=== PATIENT | male | born 1940 | race Caucasian/White ===

== ENCOUNTER → 2017-12-15 | Outpatient (CLI) | payer MEDICARE ==
--- NOTE | 2017-12-15 12:55 | MR ---
EXAMINATION TYPE: MR brain wo/w con DATE OF EXAM: 12/15/2017 COMPARISON: None HISTORY: Dizziness, headache TECHNIQUE: Multiplanar, multisequence images of the brain and brainstem is performed without and with IV contras t, utilizing 10 mL intravenous Gadavist . FINDINGS: Diffusion weighted images demonstrate no evidence of a recent infarct or other diffusion ab normality. ventricular system and cisternal spaces are normal in size and appearance. The brain vol ume is age appropriate. Midline structures demonstrate normal morphology. The craniocervical junction appears within normal limits. Along the left parietal pleura there is a 0.7 x 1.7 cm area of enhancement which appears to b e extra-axial. Most likely related to a small meningioma. If there is a history of malignancy metasta sis would not be excluded. There is a moderate generalized degenerative change with diffuse and numerous focal areas of abnormal signal in the white matter most typical remote microvascular ischemia. The dural venous sinuses appear patent. The visualized sinuses are clear and the globes are intact. M inimal changes of chronic sinusitis in the ethmoid air cells. IMPRESSION: 1. Degenerative and nonspecific white matter changes most typical remote ischemia. 2. There is dural enhancement along the left parietal convexity measuring 0.7 x 1.7 cm. Appears to be extra-axial and related to the dura. Meningioma in the differential diagnosis. Other etiologies not excluded. Recommend a 3-6 month follow-up to confirm stability and exclude other etiologies.
== END | disposition home or self-care (01) ==
LOC: RADMRIMAIN 11:20
PROVIDERS: ATTEND Family Medicine
DX: G31.9 Degenerative disease of nervous system, unspecified (principal); R90.89 Other abnormal findings on diagnostic imaging of central nervous system; R42 Dizziness and giddiness
CPT/HCPCS: 82565; 84520; 70553; 36415; A9581

== ENCOUNTER → 2017-12-15 | Outpatient (CLI) | payer MEDICARE ==
--- NOTE | 2017-12-15 12:01 | CT ---
EXAMINATION TYPE: CT sinus wo con DATE OF EXAM: 12/15/2017 COMPARISON: None HISTORY: Facial pain and snoring CT DLP: 569 mGycm. Automated Exposure Control for Dose Reduction was Utilized. TECHNIQUE: CT scan of the sinuses is performed without contrast, axial images are obtained, coronal r eformatted images are also reviewed. FINDINGS: The paranasal sinuses including the frontal, ethmoid, sphenoid, and maxillary sinuses bila terally are well-aerated very mild ethmoidal chronic appearing sinusitis. No air-fluid levels. Slight nasal septal deviation.. The ostiomeatal complex is patent bilaterally on the coronal images. Visualized portion of mastoid air cells show no abnormal opacification. The globes are intact bilate rally. Nasopharynx and oropharynx are symmetric. IMPRESSION: 1. Minimal changes of chronic ethmoidal sinusitis.
== END | disposition home or self-care (01) ==
LOC: RADCTMAIN 11:06
PROVIDERS: ATTEND Otolaryngology
DX: J32.2 Chronic ethmoidal sinusitis (principal)
CPT/HCPCS: 70486

== ENCOUNTER → 2017-12-16 | Outpatient (CLI) | payer MEDICARE ==
--- NOTE | 2017-12-16 18:40 | CONS ---
CONSULTATION REASON FOR CONSULTATION: Sleep apnea. This 77-year-old male patient was referred to me for sleep apnea evaluation. The concern was raised by his , as the patient has been noted to snore more aggressively. Note that the patient had a sleep evaluation more than 10 years ago at [facility], and back then the study was negative and the patient was released. Since then, the patient has gained around 20 to 30 pounds, he snores more aggressively when he drinks a cocktail, especially more than 2 cocktails per night. He is feeling fatigued and tired during the day and somewhat somnolent, yet he is not falling asleep during the day and he does not take any naps during the day. His sleep is fragmented. He goes to bed around 10 p.m., wakes up at 3 a.m., 5 a.m. and 6 a.m., and he has no difficulties in going back to sleep. His Vilonia score is 5. He does not fall asleep while driving. No major comorbidities other than hypertension and hyperlipidemia. PAST MEDICAL HISTORY: Hypertension and hyperlipidemia. PAST SURGICAL HISTORY: 1. Rotator cuff surgery on the left shoulder. 2. Meniscus repair in the right and left knee. DRUG ALLERGIES: PENICILLIN. OUTPATIENT MEDICATION LIST: 1. Enalapril 20 mg p.o. daily. 2. Lipitor 40 mg p.o. daily. 3. Aspirin 81 mg p.o. daily. 4. Vitamin B complex. 5. Ocuvite. SOCIAL HISTORY: Nonsmoker. No history of alcoholism. No history of IV drugs. FAMILY HISTORY: Negative for sleep apnea. REVIEW OF SYSTEMS: Twelve-point review of systems was done. Positive findings are all mentioned above in the history of present illness. PHYSICAL EXAMINATION: BP is 112/61, pulse 74, respirations 16, temperature 98.1, saturation 98% on room air. Weight is 233. Height is 5 feet 9 inches. Neck size 17-1/4 inches. GENERAL APPEARANCE: Calm, comfortable. Head is atraumatic, normocephalic. Mallampati class III. There is no goiter or neck mass. LUNGS: Clear to auscultation. HEART: Heart sounds are regular rate and rhythm. Normal S1, S2. No S3, S4. No murmurs. ABDOMEN: Soft, nontender. No organomegaly. EXTREMITIES: No edema. No cyanosis or clubbing. NEUROLOGIC: Alert and oriented x3. No focal neurological deficit. IMPRESSION: 1. Loud snoring with some limited fatigue and sleepiness; questionable obstructive sleep apnea. This needs to be further investigated. His last evaluation more than 10 years ago was negative. 2. Hypertension. 3. Hyperlipidemia. PLAN: Overall clinical suspicion is low. The patient is willing to be investigated further, knowing that sleep apnea has been an ongoing concern for him and his family. We will proceed with a PSG and get back to the patient with the results and decide if treatment is needed. Meanwhile, encourage weight loss, implement good sleep hygiene measures, eliminate alcohol drinking, especially late in the evening. Implement good sleep hygiene principles. Will continue to follow. MMCRISTYL / IJN: [id number] /
== END | disposition home or self-care (01) ==
LOC: SLEEP 16:06
PROVIDERS: ATTEND Internal Medicine Critical Care Medicine
DX: R06.83 Snoring (principal); R53.83 Other fatigue; I10 Essential (primary) hypertension; E78.5 Hyperlipidemia, unspecified; Z88.0 Allergy status to penicillin; Z79.899 Other long term (current) drug therapy; Z79.82 Long term (current) use of aspirin
CPT/HCPCS: 99211

== ENCOUNTER 2019-10-18 17:19 | Inpatient (IN) | payer MEDICARE ==
[2019-10-18 17:42] LABS: Glucose,Whole Blood 101 mg/dL (75-99)
[2019-10-18 18:18] LABS: Basophils % (A) 1 %; Eosinophils # (A) 0.1 k/uL (0-0.7); Eosinophils % (A) 1 %; HCT 43.5 % (39.0-53.0); HGB 14.5 gm/dL (13.0-17.5); Lymphocytes # (A) 0.8 k/uL (1.0-4.8); Lymphocytes % (A) 14 %; MCH 32.8 pg (25.0-35.0); MCHC 33.4 g/dL (31.0-37.0); MCV 98.1 fL (80.0-100.0); Mean Platelet Volume 9.7; Monocytes # (A) 0.3 k/uL (0-1.0); Monocytes % (A) 5 %; Neutrophils # (A) 4.5 k/uL (1.3-7.7); Neutrophils % (A) 78 %; Platelet Count 141 k/uL (150-450); RBC 4.44 m/uL (4.30-5.90); WBC 5.8 k/uL (3.8-10.6)
[2019-10-18 18:22] LABS: Albumin 3.9 g/dL (3.5-5.0); Calcium 9.3 mg/dL (8.4-10.2); Potassium 4.5 mmol/L (3.5-5.1); Total Bilirubin 0.9 mg/dL (0.2-1.3); Total Protein 6.4 g/dL (6.3-8.2)
[2019-10-18 18:28] LABS: Prothrombin Time 10.3 sec (9.0-12.0)
--- NOTE | 2019-10-18 18:41 | CT ---
EXAMINATION TYPE: CT brain cspine wo con DATE OF EXAM: 10/18/2019 COMPARISON: None HISTORY: Fall injury CT DLP: 1403.8 mGycm Automated exposure control for dose reduction was used. There is mild cerebral cortical atrophy. There is no mass effect nor midline shift. There is no sign of intracranial hemorrhage. Calvarium is intact. Skull base is intact. There is normal aeration of th e temporal bones. Cervical vertebra have fairly normal spacing and alignment. There is hypertrophic anterior osteophyte formation in the lower cervical spine. There is multilevel cervical hypertrophic facet arthropathy. There is no evidence of cervical spine fracture. IMPRESSION: Mild to moderate spurring in the cervical spine. No fracture seen. Mild cerebral atrophy appropriate for age. No acute intracranial abnormality.
--- NOTE | 2019-10-18 19:20 | XR ---
EXAMINATION TYPE: XR chest 2V DATE OF EXAM: 10/18/2019 COMPARISON: NONE HISTORY: Syncope TECHNIQUE: 2 views FINDINGS: There is some elevation of the right diaphragm. There is no heart failure. There is no pulm onary consolidation. There are no hilar masses. Bony thorax is intact. IMPRESSION: Elevated right diaphragm could relate to some diaphragm paralysis. Normal heart.
[2019-10-18 20:28] LABS: Appearance,Urine Clear (Clear); Bilirubin,Urine Negative (Negative); Blood,Urine Negative (Negative); Color,Urine Yellow; Glucose,Urine (UA) Negative (Negative); Ketones,Urine Trace (Negative); Leukocyte Esterase,Urine Negative (Negative); Nitrite,Urine Negative (Negative); Protein,Urine Negative (Negative); Specific Gravity,Urine 1.012 (1.001-1.035); Urobilinogen,Urine <2.0 mg/dL (<2.0)
[2019-10-18] MEDS ORDERED: NALOXONE 0.4 MG/ML 1 ML VIAL IV PRN (20:49)
--- NOTE | 2019-10-18 20:51 | ED ---
General Adult HPI - General Source: patient, RN notes reviewed, old records reviewed Mode of arrival: EMS Limitations: no limitations <Masoud Busch - Last Filed: 10/18/19 20:46> <Sharad Lynne - Last Filed: 10/18/19 20:54> - General Chief complaint: Syncope Stated complaint: Fall,syncope Time Seen by Provider: 10/18/19 17:20 - History of Present Illness Initial comments: 79-year-old male patient presents ED chief complaint sacral episode. Patient reports that he was busy running errands today. He reports that he sat down on a chair when he got home and then fell backwards at sacral episode had a brief loss of consciousness for 1-2 seconds. This was witnessed without any seizure- like activity. Patient reports that early this morning he had a small amount of blurred vision after he woke up and said he felt a hook to his head. He reports it as only transient and resolved. He denies any chest pain or shortness of breath. Reports that he does have some muscular paracervical discomfort however denies any other focal areas of pain or shortness of breath at this time Systemic: Pt denies fatigue, fever/chills, rash. Pt denies weakness, night sweats, weight loss. Neuro: Pt denies headache, visual disturbances. HEENT: Pt denies ocular discharge or irritation, otalgia, rhinorrhea, pharyngitis or notable lymphadenopathy. Cardiopulmonary: Pt denies chest pain, SOB, heart palpitations, dyspnea on exertion. Abdominal/GI: Pt denies abdominal pain, n/v/d. : Pt denies dysuria, burning w/ urination, frequency/urgency. Denies new onset urinary or bowel incontinence. MSK: Pt denies myalgia, loss of strength or function in extremities. Neuro: Pt denies new onset weakness, paresthesias. (Masoud Busch) - Related Data Home Medications Medication Instructions Recorded Confirmed Aspirin [Adult Low Dose Aspirin EC] 81 mg PO DAILY 10/18/19 10/18/19 Atorvastatin [Lipitor] 40 mg PO DAILY 10/18/19 10/18/19 C,E,Zinc,Copper 11/Lnqkw0c/Lut 1 tab PO DAILY 10/18/19 10/18/19 [Ocuvite Adult 50 Plus Softgel] Enalapril [Vasotec] 20 mg PO DAILY 10/18/19 10/18/19 Ergocalciferol [Vitamin D2 50,000 unit PO SA 10/18/19 10/18/19 (DRISDOL)] Krill Oil 300mg 1 tab PO DAILY 10/18/19 10/18/19 Levothyroxine Sodium [Synthroid] 100 mcg PO DAILY 10/18/19 10/18/19 Serrapeptase (Unknown Strength) 1 tab PO DAILY 10/18/19 10/18/19 Vitamin B Complex (Unknown 1 tab PO DAILY 10/18/19 10/18/19 Strength) Allergies Allergy/AdvReac Type Severity Reaction Status Date / Time Penicillins Allergy Swelling Verified 10/18/19 19:05 Review of Systems ROS Other: All systems not noted in ROS Statement are negative. <Masoud Busch - Last Filed: 10/18/19 20:46> ROS Other: All systems not noted in ROS Statement are negative. <Sharad Lynne - Last Filed: 10/18/19 20:54> ROS Statement: Those systems with pertinent positive or pertinent negative responses have been documented in the HPI. Past Medical History Past Medical History: Hyperlipidemia, Hypertension, Thyroid Disorder History of Any Multi-Drug Resistant Organisms: None Reported Additional Past Surgical History / Comment(s): varicose vein surgery, cyst removal from hand Past Psychological History: No Psychological Hx Reported Smoking Status: Former smoker Past Alcohol Use History: Daily Past Drug Use History: None Reported <Masoud Busch - Last Filed: 10/18/19 20:46> General Exam Limitations: no limitations <Masoud Busch - Last Filed: 10/18/19 20:46> - General Exam Comments Initial Comments: Constitutional: NAD, AOX3, Pt has pleasant affect. HEENT: NC/AT, trachea midline, neck supple, no lymphadenopathy. Posterior pharynx non erythematous, without exudates. External ears appear normal, without discharge. Mucous membranes moist. Eyes PERRLA, EOM intact. There is no scleral icterus. No pallor noted. Cardiopulmonary: RRR, no murmurs, rubs or gallops, no JVD noted. Lungs CTAB in anterior and posterior montalvo. No peripheral edema. Abdominal exam: Abdomen soft and non-distended. Abdomen non-tender to palpation in all 4 quadrants. Bowel sounds active in LLQ. No hepatosplenomegaly. No ecchymosis Neuro: CN II-XII intact. No nuchal rigidity. No raccon eyes, no rossi sign, no hemotympanum. No midline cervical spinal tenderness. Mild amount of MSK: No posterior calf tenderness bilaterally, homans sign negative bilaterally. Posterior tibialis and radial pulse +2 bilaterally. Sensation intact in upper and lower extremities. Full active ROM in upper and lower extremities, 5/5 stregnth. (Masoud Busch) Course <Sharad Lynne - Last Filed: 10/18/19 20:54> Vital Signs 10/18/19 10/18/19 10/18/19 17:20 18:30 19:27 Temperature 97.9 F Pulse Rate 78 78 73 Respiratory 16 15 18 Rate Blood Pressure 151/78 136/78 140/73 O2 Sat by Pulse 96 99 97 Oximetry - Reevaluation(s) Reevaluation #1: 10/18/19 20:53 PA supervision: I did personally evaluate this case patient did present with a complaint of a syncopal episode. He's never had one before. He did fall back and his head but had no overt pathology regarding this. He denies any chest pain palpitations or other symptoms at this time. The circumstances the patient will be admitted for evaluation the case is discussed with Dr. Mullins who did see the patient in the emergency department. (Sharad Lynne) Medical Decision Making - Lab Data Result diagrams: 10/18/19 17:51 10/18/19 17:51 - EKG Data -: EKG Interpreted by Me (and Dr. Lynne ) <Masoud Busch - Last Filed: 10/18/19 20:46> - Lab Data Result diagrams: 10/18/19 17:51 10/18/19 17:51 <Sharad Lynne - Last Filed: 10/18/19 20:54> - Medical Decision Making 79-year-old male patient presents to for syncopal episode. Physical signs are stable, afebrile. Physical exam displayed a mild amount of right paracervical discomfort trapezius region. Laboratory investigations are unremarkable. Troponin negative. EKG doesn't display frequent PVCs. CT brain sign negative for acute intracranial process. CT cervical spine is displayed mild spurring. Chest x-ray revealed mildly elevated right hemidiaphragm. Patient will be for syncopal episode. Case discussed with Dr. Lynne. Accepting physician Dr. Mullins. (Masoud Busch) - Lab Data Lab Results 10/18/19 10/18/19 10/18/19 Range/Units 17:40 17:51 17:51 WBC 5.8 (3.8-10.6) k/uL RBC 4.44 (4.30-5.90) m/uL Hgb 14.5 (13.0-17.5) gm/dL Hct 43.5 (39.0-53.0) % MCV 98.1 (80.0-100.0) fL MCH 32.8 (25.0-35.0) pg MCHC 33.4 (31.0-37.0) g/dL RDW 13.0 (11.5-15.5) % Plt Count 141 L (150-450) k/uL Neutrophils % 78 % Lymphocytes % 14 % Monocytes % 5 % Eosinophils % 1 % Basophils % 1 % Neutrophils # 4.5 (1.3-7.7) k/uL Lymphocytes # 0.8 L (1.0-4.8) k/uL Monocytes # 0.3 (0-1.0) k/uL Eosinophils # 0.1 (0-0.7) k/uL Basophils # 0.0 (0-0.2) k/uL PT 10.3 (9.0-12.0) sec INR 1.0 (<1.2) APTT 22.0 (22.0-30.0) sec Sodium (137-145) mmol/L Potassium (3.5-5.1) mmol/L Chloride (98-107) mmol/L Carbon Dioxide (22-30) mmol/L Anion Gap mmol/L BUN (9-20) mg/dL Creatinine (0.66-1.25) mg/dL Est GFR (CKD-EPI)AfAm (>60 ml/min/1.73 sqM) Est GFR (CKD-EPI)NonAf (>60 ml/min/1.73 sqM) Glucose (74-99) mg/dL POC Glucose (mg/dL) 101 H (75-99) mg/dL POC Glu Selling Manager ID Marjorie Muniz Calcium (8.4-10.2) mg/dL Total Bilirubin (0.2-1.3) mg/dL AST (17-59) U/L ALT (4-49) U/L Alkaline Phosphatase (38-126) U/L Troponin I (0.000-0.034) ng/mL Total Protein (6.3-8.2) g/dL Albumin (3.5-5.0) g/dL Urine Color Urine Appearance (Clear) Urine pH (5.0-8.0) Ur Specific [place] (1.001-1.035) Urine Protein (Negative) Urine Glucose (UA) (Negative) Urine Ketones (Negative) Urine Blood (Negative) Urine Nitrite (Negative) Urine Bilirubin (Negative) Urine Urobilinogen (<2.0) mg/dL Ur Leukocyte Esterase (Negative) 10/18/19 10/18/19 10/18/19 Range/Units 17:51 17:51 19:47 WBC (3.8-10.6) k/uL RBC (4.30-5.90) m/uL Hgb (13.0-17.5) gm/dL Hct (39.0-53.0) % MCV (80.0-100.0) fL MCH (25.0-35.0) pg MCHC (31.0-37.0) g/dL RDW (11.5-15.5) % Plt Count (150-450) k/uL Neutrophils % % Lymphocytes % % Monocytes % % Eosinophils % % Basophils % % Neutrophils # (1.3-7.7) k/uL Lymphocytes # (1.0-4.8) k/uL Monocytes # (0-1.0) k/uL Eosinophils # (0-0.7) k/uL Basophils # (0-0.2) k/uL PT (9.0-12.0) sec INR (<1.2) APTT (22.0-30.0) sec Sodium 135 L (137-145) mmol/L Potassium 4.5 (3.5-5.1) mmol/L Chloride 105 (98-107) mmol/L Carbon Dioxide 23 (22-30) mmol/L Anion Gap 7 mmol/L BUN 15 (9-20) mg/dL Creatinine 1.08 (0.66-1.25) mg/dL Est GFR (CKD-EPI)AfAm 76 (>60 ml/min/1.73 sqM) Est GFR (CKD-EPI)NonAf 65 (>60 ml/min/1.73 sqM) Glucose 93 (74-99) mg/dL POC Glucose (mg/dL) (75-99) mg/dL POC Glu Selling Manager ID Calcium 9.3 (8.4-10.2) mg/dL Total Bilirubin 0.9 (0.2-1.3) mg/dL AST 32 (17-59) U/L ALT 25 (4-49) U/L Alkaline Phosphatase 63 (38-126) U/L Troponin I <0.012 (0.000-0.034) ng/mL Total Protein 6.4 (6.3-8.2) g/dL Albumin 3.9 (3.5-5.0) g/dL Urine Color Yellow Urine Appearance Clear (Clear) Urine pH 6.0 (5.0-8.0) Ur Specific [place] 1.012 (1.001-1.035) Urine Protein Negative (Negative) Urine Glucose (UA) Negative (Negative) Urine Ketones Trace H (Negative) Urine Blood Negative (Negative) Urine Nitrite Negative (Negative) Urine Bilirubin Negative (Negative) Urine Urobilinogen <2.0 (<2.0) mg/dL Ur Leukocyte Esterase Negative (Negative) - EKG Data EKG Comments: Ventricular rate 84, [place] [id number], QRS 104, QT/QTC 390/460. Sinus rhythm with Sinus Arrhythmia with Frequent Premature Ventricular Complexes. Minimal Voltage Criteria for LVH Maybe Normal Variant. No Concern for Acute Ischemia. at this time (Masoud Busch) Disposition Is patient prescribed a controlled substance at d/c from ED?: No <Masoud Busch - Last Filed: 10/18/19 20:46> <Sharad Lynne - Last Filed: 10/18/19 20:54> Clinical Impression: Syncope Disposition: ADMITTED IP TO THIS HOSP Condition: Serious Referrals: Wellington Delgado MD [Primary Care Provider] - 1-2 days
--- NOTE | 2019-10-19 00:01 | P.HPIM ---
History of Present Illness H&P Date: 10/18/19 The patient is a 79-year-old male with a PMH of hypertension, hyperlipidemia, and hypothyroidism who presented to the ED after an episode of syncope. The patient notes that he had been in his usual state of health until yesterday evening when at around 1 AM she had episodes while laying down in bed attempting to sleep which he describes as a buildup of pressure in his head with sensations of red dots in his vision. He attributed his symptoms to constipation and subsequently took a laxative and had a bowel movement at around 11 AM. He then did not experience symptoms again until he sat down in a stool in his house after running some errands. While sitting down, riding on a piece of paper, he suddenly felt a buildup of that same sensation and subsequently lost consciousness, falling off the stool, hitting the back of his head, as witnessed by his son. The patient immediately regained consciousness, within a few seconds, with no contusion. Patient denied urinary or bowel incontinence. Denied tongue biting or shaking movements. The family denied noticing any shaking movements, though otherwise did endorse that his face looked "funny" for split-second after he regained consciousness. The patient reports no prior episode of syncope. Denied prodromal palpitations, chest discomfort, shortness of breath, nausea, vomiting, or diaphoresis. At time of interview, patient reported feeling back to his baseline and denied any additional complaints. Denied headache, visual disturbances, weakness, numbness, or tunneling. In the emergency room, an EKG revealed sinus rhythm with sinus arrhythmia and PVCs at [address]/T-wave changes noted as reviewed by me. CT head and cervical spine revealed mild to moderate spurring in the cervical spine with mild cerebral atrophy appropriate for age. Chest x-ray revealed elevated right diaphragm though otherwise unremarkable. Laboratory evaluation revealed a troponin less than 0.012, UA unremarkable, sodium 135, potassium 4.5, chloride 105, CO2 23, BUN 15, creatinine 1.08, glucose of 101, WBC count 5.8, hemoglobin 14.5, platelets 141. Review of Systems Pertinent positives and negatives as discussed in HPI, a complete review of systems was performed and all other systems are negative. Past Medical History Past Medical History: Hyperlipidemia, Hypertension, Thyroid Disorder History of Any Multi-Drug Resistant Organisms: None Reported Additional Past Surgical History / Comment(s): varicose vein surgery, cyst removal from hand Past Psychological History: No Psychological Hx Reported Smoking Status: Former smoker Past Alcohol Use History: Daily Past Drug Use History: None Reported Medications and Allergies Home Medications Medication Instructions Recorded Confirmed Type Aspirin [Adult Low Dose Aspirin EC] 81 mg PO DAILY 10/18/19 10/18/19 History Atorvastatin [Lipitor] 40 mg PO DAILY 10/18/19 10/18/19 History C,E,Zinc,Copper 11/Walee7c/Lut 1 tab PO DAILY 10/18/19 10/18/19 History [Ocuvite Adult 50 Plus Softgel] Enalapril [Vasotec] 20 mg PO DAILY 10/18/19 10/18/19 History Ergocalciferol [Vitamin D2 50,000 unit PO SA 10/18/19 10/18/19 History (DRISDOL)] Krill Oil 300mg 1 tab PO DAILY 10/18/19 10/18/19 History Levothyroxine Sodium [Synthroid] 100 mcg PO DAILY 10/18/19 10/18/19 History Serrapeptase (Unknown Strength) 1 tab PO DAILY 10/18/19 10/18/19 History Vitamin B Complex (Unknown 1 tab PO DAILY 10/18/19 10/18/19 History Strength) Allergies Allergy/AdvReac Type Severity Reaction Status Date / Time Penicillins Allergy Swelling Verified 10/18/19 19:05 Physical Exam Vitals: Vital Signs Temp Pulse Resp BP Pulse Ox 10/18/19 19:27 73 18 140/73 97 10/18/19 18:30 78 15 136/78 99 10/18/19 17:20 97.9 F 78 16 151/78 96 Intake and Output 10/18/19 10/18/19 10/18/19 06:59 14:59 22:59 Other: Weight 104.326 kg General: non toxic, no distress, appears at stated age, obese Derm: no unusual rashes/lesions no unusual ecchymoses, warm, dry Head: atraumatic, normocephalic, symmetric Eyes: EOMI, no lid lag, anicteric sclera, pupils equal round reactive to light ENT: Nose and ears atraumatic, no thrush, no pharyngeal erythema Neck: No thyromegaly, no cervical lymphadenopathy, trachea midline, supple Mouth: no lip lesion, mucus membranes moist Cardiovascular: S1S2 reg, no murmur, positive posterior tibial pulse bilateral, no edema, capillary refill less than 2 seconds Lungs: CTA bilateral, no rhonchi, no rales , no accessory muscle use Abdominal: soft, nontender to palpation, no guarding, no appreciable organomegaly, normal bowel sounds Ext: no gross muscle atrophy, muscle strength 5 out of 5 in all 4 extremities grossly, no contractures, Neuro: CN II-XI grossly intact, light touch intact all 4 extremities, finger to nose within normal limits, Babinski downwards, no pronator drift Psych: Alert, oriented, appropriate affect Results CBC & Chem 7: 10/18/19 17:51 10/18/19 17:51 Labs: Abnormal Lab Results - Last 24 Hours (Table) 10/18/19 10/18/19 10/18/19 Range/Units 17:40 17:51 17:51 Plt Count 141 L (150-450) k/uL Lymphocytes # 0.8 L (1.0-4.8) k/uL Sodium 135 L (137-145) mmol/L POC Glucose (mg/dL) 101 H (75-99) mg/dL Urine Ketones (Negative) 10/18/19 Range/Units 19:47 Plt Count (150-450) k/uL Lymphocytes # (1.0-4.8) k/uL Sodium (137-145) mmol/L POC Glucose (mg/dL) (75-99) mg/dL Urine Ketones Trace H (Negative) Assessment and Plan Plan: Syncope -Unclear etiology at this time -Suspected cardiac in nature due to sudden onset with no prodromal symptoms and no post ictal confusion. -Cardiac monitoring for now -Echocardiogram -Fall, aspiration, seizure precautions -Strict bedrest Chronic conditions: Hypertension, hyperlipidemia, hypothyroidism -Continue with home meds DVT prophylaxis -Heparin subq The patient is admitted with an anticipated less than 2 midnight stay for evaluation of syncope CODE STATUS: Full code Discussed with: Patient Anticipated discharge date: 1-[address]: Home A total of 35 minutes was spent on the care of this complex patient more than 50% of the time was spent in counseling and care coordination.
[2019-10-19] MEDS: HEPARIN SODIUM,PORCINE 5,000 UNIT/ML 1 ML VIAL SQ SCH ×4 (00:49→21:17)
[2019-10-19] MEDS: LEVOTHYROXINE 100 MCG TAB PO SCH (06:37)
[2019-10-19] MEDS: lisinopriL 20 MG TAB PO SCH (08:14)
[2019-10-19] MEDS: ATORVASTATIN 40 MG TAB PO SCH (08:14)
[2019-10-19] MEDS ORDERED: ASPIRIN 81 MG PO SCH (09:00)
[2019-10-19 10:22] LABS: Magnesium 1.8 mg/dL (1.6-2.3)
[2019-10-19] MEDS: METOPROLOL TARTRATE 25 MG TAB PO SCH ×2 (11:41→21:17)
--- NOTE | 2019-10-19 11:41 | US ---
EXAMINATION TYPE: US carotid duplex BILAT DATE OF EXAM: 10/19/2019 COMPARISON: NONE CLINICAL HISTORY: syncope. Pt states syncope EXAM MEASUREMENTS: RIGHT: Peak Systolic Velocity (PSV) cm/sec ----- Right CCA: 73.5 ----- Right ICA: 94.3 ----- Right ECA: 102.1 ICA/CCA ratio: 1.3 RIGHT: End Diastole cm/sec ----- Right CCA: 15.3 ----- Right ICA: 15.4 ----- Right ECA: 6.3 LEFT: Peak Systolic Velocity (PSV) cm/sec ----- Left CCA: 87.8 ----- Left ICA: 103.4 ----- Left ECA: 94.3 ICA/CCA ratio: 1.2 LEFT: End Diastole cm/sec ----- Left CCA: 16.4 ----- Left ICA: 14.1 ----- Left ECA: 6.3 VERTEBRALS (direction of flow): Right Vertebral: Antegrade Left Vertebral: Antegrade Rhythm: Normal Grayscale, color Doppler, spectral Doppler imaging performed of the carotid arteries. Waveform analys is does not show significant stenosis of the internal carotid arteries. No significant stenosis seen IMPRESSION: No hemodynamic significant stenosis of the proximal internal carotid arteries by Doppler criteria, an indirect measurement of carotid stenosis Criteria for Assigning % of Stenosis / Diameter reduction (Estimation based on the indirect measurements of the internal carotid artery velocities (ICA PSV). 1. Normal (no stenosis)=ICA PSV < 125 cm/s: ratio < 2.0: ICA EDV<40 cm/s. 2. Less than 50% stenosis=ICA PSV < 125 cm/s: ratio < 2.0: ICA EDV<40 cm/s. 3. 50 to 69% stenosis=ICA PSV of 125 to 230 cm/s: ration 2.0 ? 4.0: ICA EDV 40-100 cm/s. 4. Greater than 70% stenosis to near occlusion= ICA PSV > 230 cm/s: ratio > 4.0: ICA EDV > 100 cm/s. 5. Near occlusion= ICA PSV velocities may be low or undetectable: variable ratio and ICA EDV. 6. Total occlusion=unable to detect flow.
[2019-10-19] MEDS ORDERED: MAGNESIUM SULFATE-D5W PMX 1 GM in DEXTROSE/WATER 1 100ML.BAG IVPB ONE (12:00)
[2019-10-19] MEDS ORDERED: ALPRAZolam 0.5 MG TAB PO PRN (12:47)
[2019-10-19] MEDS ORDERED: SODIUM CHLORIDE 0.9% 1,000 ML in EMPTY BAG 1 BAG IV ONE (12:47)
[2019-10-19] MEDS ORDERED: ALPRAZolam 0.25 MG TAB PO PRN (12:47)
[2019-10-19] MEDS ORDERED: NITROGLYCERIN SL TABS 0.4 MG TAB SUBLINGUAL PRN (12:47)
--- NOTE | 2019-10-19 12:47 | P.PN ---
Subjective Progress Note Date: 10/19/19 Principal diagnosis: Syncope Patient was seen and examined. No acute events overnight. Patient reports lightheadedness and palpitations this morning. Telemetry shows 10 beat runs of V. tach. He denies any chest pain or palpitations. No nausea or vomiting. No fever or chills. Objective - Vital Signs Vital signs: Vital Signs Temp 98.1 F 10/19/19 07:26 Pulse 75 10/19/19 11:24 Resp 16 10/19/19 07:36 BP 122/73 10/19/19 11:24 Pulse Ox 98 10/19/19 07:26 Intake & Output 10/18/19 10/19/19 10/19/19 18:59 06:59 18:59 Intake Total 720 Balance 720 Weight 104.326 kg 104.326 kg Intake: Oral 720 Other: # Voids 1 - Exam General: [non toxic], [no distress], [appears at stated age] Derm: [warm], [dry] Head: [atraumatic], [normocephalic], [symmetric] Eyes: [EOMI], [no lid lag], [anicteric sclera] Mouth: [no lip lesion], [mucus membranes moist] Cardiovascular: [S1S2 reg], [no murmur], [positive DP pulse bilateral], Lungs: [CTA bilateral], [no rhonchi, no rales] , [no accessory muscle use] Abdominal: [soft], [ nontender to palpation], [no guarding], [no appreciable organomegaly] Ext: [no gross muscle atrophy], [no edema], [no contractures] Neuro: [no focal neuro deficits] Psych: [Alert], [oriented], [appropriate affect] - Labs CBC & Chem 7: 10/18/19 17:51 10/18/19 17:51 Labs: Abnormal Lab Results - Last 24 Hours (Table) 10/18/19 10/18/19 10/18/19 Range/Units 17:40 17:51 17:51 Plt Count 141 L (150-450) k/uL Lymphocytes # 0.8 L (1.0-4.8) k/uL Sodium 135 L (137-145) mmol/L POC Glucose (mg/dL) 101 H (75-99) mg/dL HDL Cholesterol (40-60) mg/dL Urine Ketones (Negative) 10/18/19 10/19/19 Range/Units 19:47 00:38 Plt Count (150-450) k/uL Lymphocytes # (1.0-4.8) k/uL Sodium (137-145) mmol/L POC Glucose (mg/dL) (75-99) mg/dL HDL Cholesterol 70 H (40-60) mg/dL Urine Ketones Trace H (Negative) Assessment and Plan Assessment: Syncopal episode likely related to ventricular tachycardia Hypertension Dyslipidemia Hypothyroidism Patient symptoms are consistent with runs of V. tach. Cardiology has evaluated the patient and there are plans for cardiac catheterization tomorrow morning. Patient will be continued on telemetry monitoring. Orthostatic vitals are o rdered. Echocardiogram is pending. His blood pressure is 122/73. Patient be continued on metoprolol and lisinopril. His vitals are be monitored and medications adjusted if necessary. Continue aspirin and Lipitor. Continue Synthroid. [Patient admitted for syncopal episode. Has runs of V. tach. Plans for cardiac cath tomorrow. Discussed with nursing to move to selective unit if bed availab le.]
[2019-10-20] MEDS: LEVOTHYROXINE 100 MCG TAB PO SCH (06:06)
--- NOTE | 2019-10-20 08:03 | P.CRDCN ---
History of Present Illness History of present illness: HISTORY OF PRESENTING ILLNESS This is a pleasant 79-year-old male past medical history significant for for tension, dyslipidemia, former nicotine dependency quit smoking over 40 years ago and daily heavy alcohol intake. He denies prior history of coronary artery disease. We have been asked to see in consultation for syncope. He states last night while he was sleeping he was having multiple episodes of a full heavy sensation in the upper anterior chest that radiated up into his head. It was associated with diaphoresis and mild nausea. It happened about 5 or 6 times through the night. In the morning he woke up and attempted to have a bowel movement because he had been constipated for the previous 3 days. He had no success. He took Ex-Lax and did have a bowel movement 2 hours later. He initially attributed his symptoms to constipation. 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 He came in at one point to make a phone call. He sat at the bar stool in his kitchen and opened up the phone book. The next thing he remembers he woke up on the floor. He had no seizure activity according to a witness. There was no loss of bowel or bladder. He came to the emergency department and has been monitored on telemetry. There is evidence of nonsustained ventricular tachycardia noted on telemetry this morning. The patient states he had a similar symptom of heaviness and flushed feeling in his chest this morning that could be correlated with his nonsustained VT. He has never followed with a underwriter in the past. He states he had a stress test many years ago that was unremarkable. He has never had a heart catheterization. He was recommended to undergo a sleep study however he canceled his appointment. DIAGNOSTICS EKG reveals sinus mechanism with frequent PVCs. Chest xray negative for an acute cardiopulmonary process. CT of the brain negative for an acute intracranial process. Laboratory reviewed, WBC 5.8, hemoglobin 14.5, platelets 141, sodium 135, potassium 4.5, creatinine 1.08, magnesium 1.8, cardiac enzymes negative 3. Current cardiac medications include aspirin 81 mg daily, enalapril 20 mg daily and atorvastatin 40 mg daily. REVIEW OF SYSTEMS At the time of my exam: CONSTITUTIONAL: Denies fever or chills. CARDIOVASCULAR: Denies chest pain, shortness of breath, orthopnea, PND or palpitations. RESPIRATORY: Denies cough. GASTROINTESTINAL: Denies abdominal pain, diarrhea, constipation, nausea or vomiting. MUSCULOSKELETAL: Denies myalgias. NEUROLOGIC: Denies numbness, tingling or weakness. ENDOCRINE: Denies fatigue, weight change, polydipsia or polyurina. GENITOURINARY: Denies burning, hematuria or urgency with micturation. HEMATOLOGIC: Denies history of anemia or bleeding. PHYSICAL EXAMINATION Blood pressure 119/69 heart rate 69 afebrile and maintaining oxygen saturation on room air. CONSTITUTIONAL: No apparent distress. HEENT: Head is normocephalic. Pupils are equal, round. Sclerae anicteric. Mucous membranes of the mouth are moist. No JVD. No carotid bruit. CHEST EXAMINATION: Lungs are clear to auscultation. No chest wall tenderness is noted on palpation or with deep breathing. HEART EXAMINATION: Regular rate and rhythm. S1, S2 heard. Systolic ejection murmur at the base, no gallops or rub. ABDOMEN: Soft, nontender. Positive bowel sounds. EXTREMITIES: 2+ peripheral pulses, no lower extremity edema and no calf tenderness. NEUROLOGIC EXAMINATION: Patient is awake, alert and oriented x3. ASSESSMENT Nonsustained ventricular tachycardia Chest pain Syncope Hypertension Dyslipidemia Daily heavy alcohol intake, he states he drinks 4 liquor drinks per day Former nicotine dependence PLAN An acute coronary event has been ruled out. Obtain 2-D echocardiogram and Doppler study to assess cardiac structure and function. Check TSH and lipid panel. Initiate Lopressor 25 mg twice a day. Recommend proceeding with cardiac catheterization to assess for underlying coronary artery disease. I have discussed the risks, benefits and alternative therapies for the above-mentioned procedure and for both sedation/analgesia as well as necessary blood product administration, if indicated, as they pertain to this patient. The patient has indicated understanding and acceptance of the risks and procedures discussed. Thank you kindly for this consultation. Nurse Practitioner note has been reviewed, I agree with a documented findings and plan of care. Patient was seen and examined. Past Medical History Past Medical History: Hyperlipidemia, Hypertension, Thyroid Disorder History of Any Multi-Drug Resistant Organisms: None Reported Additional Past Surgical History / Comment(s): varicose vein surgery, cyst sampson shani from hand Past Anesthesia/Blood Transfusion Reactions: No Reported Reaction Past Psychological History: No Psychological Hx Reported Smoking Status: Former smoker Past Alcohol Use History: Daily Past Drug Use History: None Reported Medications and Allergies Home Medications Medication Instructions Recorded Confirmed Type Aspirin [Adult Low Dose Aspirin EC] 81 mg PO DAILY 10/18/19 10/18/19 History Atorvastatin [Lipitor] 40 mg PO DAILY 10/18/19 10/18/19 History C,E,Zinc,Copper 11/Rgxfv0l/Lut 1 tab PO DAILY 10/18/19 10/18/19 History [Ocuvite Adult 50 Plus Softgel] Enalapril [Vasotec] 20 mg PO DAILY 10/18/19 10/18/19 History Ergocalciferol [Vitamin D2 50,000 unit PO SA 10/18/19 10/18/19 History (DRISDOL)] Krill Oil 300mg 1 tab PO DAILY 10/18/19 10/18/19 History Levothyroxine Sodium [Synthroid] 100 mcg PO DAILY 10/18/19 10/18/19 History Serrapeptase (Unknown Strength) 1 tab PO DAILY 10/18/19 10/18/19 History Vitamin B Complex (Unknown 1 tab PO DAILY 10/18/19 10/18/19 History Strength) Allergies Allergy/AdvReac Type Severity Reaction Status Date / Time Penicillins Allergy Swelling Verified 10/18/19 19:05 Physical Exam Vitals: Vital Signs Temp Pulse Pulse Resp BP BP Pulse Ox 10/19/19 07:36 69 16 10/19/19 07:26 98.1 F 69 16 119/69 98 10/19/19 05:00 98.8 F 70 16 127/71 96 10/19/19 04:00 70 16 10/18/19 22:30 98.1 F 74 16 98 10/18/19 19:27 73 18 140/73 97 10/18/19 18:30 78 15 136/78 99 10/18/19 17:20 97.9 F 78 16 151/78 96 Intake and Output 10/18/19 10/19/19 10/19/19 22:59 06:59 14:59 Intake Total 720 Balance 720 Intake: Oral 720 Other: # Voids 1 1 Weight 104.326 kg Results 10/18/19 17:51 10/18/19 17:51 Cardiac Enzymes 10/18/19 10/18/19 10/18/19 Range/Units 17:51 17:51 22:32 AST 32 (17-59) U/L Troponin I <0.012 <0.012 (0.000-0.034) ng/mL 10/19/19 Range/Units 00:38 AST (17-59) U/L Troponin I <0.012 (0.000-0.034) ng/mL Coagulation 10/18/19 Range/Units 17:51 PT 10.3 (9.0-12.0) sec APTT 22.0 (22.0-30.0) sec CBC 10/18/19 Range/Units 17:51 WBC 5.8 (3.8-10.6) k/uL RBC 4.44 (4.30-5.90) m/uL Hgb 14.5 (13.0-17.5) gm/dL Hct 43.5 (39.0-53.0) % Plt Count 141 L (150-450) k/uL Comprehensive Metabolic Panel 10/18/19 Range/Units 17:51 Sodium 135 L (137-145) mmol/L Potassium 4.5 (3.5-5.1) mmol/L Chloride 105 (98-107) mmol/L Carbon Dioxide 23 (22-30) mmol/L BUN 15 (9-20) mg/dL Creatinine 1.08 (0.66-1.25) mg/dL Glucose 93 (74-99) mg/dL Calcium 9.3 (8.4-10.2) mg/dL AST 32 (17-59) U/L ALT 25 (4-49) U/L Alkaline Phosphatase 63 (38-126) U/L Total Protein 6.4 (6.3-8.2) g/dL Albumin 3.9 (3.5-5.0) g/dL Current Medications Generic Name Dose Route Start Last Admin Trade Name Freq PRN Reason Stop Dose Admin Aspirin 81 mg 10/19/19 09:00 10/19/19 08:14 Aspirin PO 81 mg DAILY ELOY Administration Atorvastatin Calcium 40 mg 10/19/19 09:00 10/19/19 08:14 Lipitor PO 40 mg DAILY ELOY Administration Heparin Sodium (Porcine) 5,000 unit 10/19/19 00:00 10/19/19 08:14 Heparin SQ 5,000 unit Q8HR ELOY Administration Levothyroxine Sodium 100 mcg 10/19/19 06:30 10/19/19 06:37 Synthroid PO 100 mcg DAILY@0630 ELOY Administration Lisinopril 20 mg 10/19/19 09:00 10/19/19 08:14 Zestril PO 20 mg DAILY ELOY Administration Naloxone HCl 0.2 mg 10/18/19 20:49 Narcan IV Q2M PRN Opioid Reversal Intake and Output 10/18/19 10/19/19 10/19/19 22:59 06:59 14:59 Intake Total 720 Balance 720 Intake: Oral 720 Other: # Voids 1 1 Weight 104.326 kg 10/18/19 17:51 10/18/19 17:51
[2019-10-20] MEDS ORDERED: ASPIRIN 81 MG PO ONE (09:00)
[2019-10-20] MEDS: HEPARIN SODIUM,PORCINE 5,000 UNIT/ML 1 ML VIAL SQ SCH ×3 (09:08→21:22)
[2019-10-20] MEDS: ATORVASTATIN 40 MG TAB PO SCH (09:09)
[2019-10-20] MEDS: lisinopriL 20 MG TAB PO SCH (09:09)
[2019-10-20] MEDS: METOPROLOL TARTRATE 25 MG TAB PO SCH ×2 (09:09→21:22)
--- NOTE | 2019-10-20 10:00 | ECHOF ---
Referral Reason:Syncope MEASUREMENTS -------- HEIGHT: 180.3 cm WEIGHT: 104.3 kg BP: 127/71 IVSd: 1.7 cm (0.6 - 1.1) LVIDd: 3.7 cm (3.9 - 5.3) LVPWd: 1.6 cm (0.6 - 1.1) IVSs: 2.1 cm LVIDs: 1.5 cm LVPWs: 1.5 cm LAESV Index (A-L): 55.59 ml/m Ao Diam: 3.4 cm (2.0 - 3.7) AV Cusp: 1.0 cm (1.5 - 2.6) MV E Pedro: 1.29 m/s MV DecT: 240 ms MV A Pedro: 1.33 m/s MV E/A Ratio: 0.97 AV maxP.92 mmHg AV meanP.52 mmHg FINDINGS -------- This was a technically difficult study with suboptimal views. The left ventricular size is normal. There is moderate concentric left ventricular hypertrophy. O verall left ventricular systolic function is mildly impaired with, an EF between 45 - 50 %. The chris stolic filling pattern is normal for the age of the patient 24.24. False Tendon Visualized in the L V Can not r/o Apical septal hypokinesis. The RV was not well visualized. The left atrium was not well visualized. LA is moderately dilated 34-39 ml/m2 The right atrium was not well visualized. Interatrial and interventricular septum intact. The aortic valve was not well visualized. There is no evidence of aortic regurgitation. There is mild aortic stenosis present. Peak/mean gradient across the Aortic Valve is 18.92mmHg / 9.52mmHg. The mitral valve was not well visualized. No mitral regurgitation. The tricuspid valve was not well visualized. Unable to estimate RVSP due to inadequate TR jet spect ral doppler profile. The pulmonic valve was not well visualized. The aortic root size is normal. IVC Not well visulized. There is no pericardial effusion. 5.0mg of Lumason was utilized for enhancement of images CONCLUSIONS -------- 1. The left ventricular size is normal. 2. There is moderate concentric left ventricular hypertrophy. 3. Overall left ventricular systolic function is mildly impaired with, an EF between 45 - 50 %. 4. Can not r/o Apical septal hypokinesis. 5. LA is moderately dilated 34-39 ml/m2 6. There is mild aortic stenosis present. 7. Peak/mean gradient across the Aortic Valve is 18.92mmHg / 9.52mmHg. TOILET AND LAUNDRY SOAP SUPERVISOR: Orin Gilbert RDCS
[2019-10-20] MEDS ORDERED: fentaNYL (PF) 50 MCG/ML 2 ML AMP ONE (10:50)
[2019-10-20] MEDS ORDERED: LIDOCAINE 1% INJ 10MG/ML (20 ML MDV) ONE (10:50)
[2019-10-20] MEDS ORDERED: HEPARIN SODIUM 1,000 UN/ML (10ML VL) ONE (10:50)
[2019-10-20] MEDS ORDERED: VERAPAMIL 2.5 MG/ML 2 ML AMP ONE (10:50)
[2019-10-20] MEDS ORDERED: IV FLUID CONTINUATION 400 ML IV ONE (11:15)
[2019-10-20] MEDS ORDERED: LIDOCAINE 1% INJ 10MG/ML (20 ML MDV) SQ ONE (11:20)
[2019-10-20] MEDS ORDERED: MIDAZOLAM 2 MG/2 ML VIAL IV ONE (11:20)
[2019-10-20] MEDS ORDERED: fentaNYL (PF) 50 MCG/ML 2 ML AMP IV ONE (11:20)
[2019-10-20] MEDS: VERAPAMIL SYRINGE (5 MG/10 ML) INTRAARTER ONE ×2 (11:23→11:38)
[2019-10-20] MEDS ORDERED: HEPARIN SODIUM 1,000 UN/ML (10ML VL) IV ONE (11:24)
[2019-10-20] MEDS ORDERED: IOPAMIDOL-370 100ML BTL INJ ONE (11:37)
[2019-10-20] MEDS ORDERED: IOPAMIDOL-370 50ML BTL INJ ONE (11:38)
[2019-10-20] MEDS ORDERED: RX INFO: IV CONTRAST WAS GIVEN 1 EACH MISC MISCELLANE PRN (11:50)
--- NOTE | 2019-10-20 11:58 | P.CARDCATH ---
Date of Procedure: 10/20/19 Preoperative Diagnosis: Syncope and episodes of nonsustained V. tach Postoperative Diagnosis: Mild diffuse coronary artery disease and preserved LV function Procedure(s) Performed: Left heart catheterization with left ventriculography Description of Procedure: HISTORY: This is a 79-year-old gentleman was admitted to the hospital with episodes of syncope and was noted to have PVCs and episodes of nonsustained V. tach. His surface echocardiogram is suboptimal. Patient is advised to have a cardiac catheterization for definitive diagnosis to rule out any underlying ischemic heart disease CONSENT:I have discussed the risks, benefits and alternative therapies for the above-mentioned procedure and for both sedation/analgesia as well as necessary blood product administration, if indicated, as they pertain to this patient. The patient has indicated understanding and acceptance of the risks and procedures discussed. PROCEDURE: Patient was brought to the lab in a fasting state. Patient was given some IV sedation. The right wrist is infiltrated with lidocaine and right radial artery was entered using Seldinger technique. A 6-Panamanian catheter was left in place and selective coronary arteriography and left ventriculography was performed. Patient tolerated the procedure well. TR band was applied for hemostasis. No immediate complications were noted and patient was transferred to [facility] in a stable condition Conscious Sedation: Versed 1mg Fentanyl 25 g Duration 33minutes , received 5000 on IV heparin HEMODYNAMICS: Aortic pressure is 140/70. The left ventricular end-diastolic pressure is about 10-12. There was no gradient across the aortic valve SELECTIVE CORONARY ARTERIOGRAPHY: LEFT MAIN: Normal length and evidence of mild calcification THE LEFT ANTERIOR DESCENDING CORONARY ARTERY: This is a fair caliber vessel with calcification and mild plaque throughout its length the use of small diagonal branches and septal branches THE LEFT CIRCUMFLEX AND IS CORONARY ARTERY:. Moderate caliber vessel with mild calcification and plaque without any significant focal lesion THE RIGHT CORONARY ARTERY:. This is a dominant vessel with a diffuse plaque and calcification without any significant focal lesion LEFT VENTRICULOGRAPHY:. Normal left in the systolic function without any segmental wall motion defects FINAL IMPRESSION:. Mild diffuse coronary artery disease. Preserved LV function. Mildly elevated end-diastolic pressure PLAN:. Maximum medical therapy. Further evaluation by EP study PROGNOSIS: Guarded
[2019-10-20] MEDS: SODIUM CHLORIDE 0.9% 1,000 ML IV SCH (12:13)
--- NOTE | 2019-10-20 15:43 | P.PN ---
Subjective Progress Note Date: 10/20/19 (delayed charting seen at 0930) Principal diagnosis: syncope Patient is 79-year-old male past medical history of hypertension, dyslipidemia, and hypothyroidism who presented to the ER after a syncopal episode. In the ER he underwent an extensive evaluation. On arrival his vital signs were within normal limits. Laboratory analysis showed a platelet count of 141 but was otherwise unremarkable. Troponin was negative. EKG was nonischemic. He underwent a CT head and cervical spine which showed mild cerebral atrophy and mild to moderate spurring of the cervical spine. Chest x- ray showed an elevated right hemidiaphragm. He was admitted for further workup of his syncopal episode. He was noted to have a run of ventricular tachycardia. Cardiology was consulted. He underwent an echocardiogram which showed an overall left ventricular systolic cardiomyopathy with an ejection fraction of 45-50% as well as mild aortic stenosis. Cardiology recommended cardiac catheterization which was completed on 10/19 which showed mild diffuse disease and recommended medical management. He was continued on his Lipitor and aspirin and was started on lisinopril and Lopressor. Patient seen and examined at bedside. He denies any current chest pain, no repeat episodes of pressure in his head or syncope, no shortness of breath, no nausea no vomiting, no diarrhea. Spouse at bedside and updated on plan of care. Objective - Vital Signs Vital signs: Vital Signs Temp 97.9 F 10/20/19 13:35 Pulse 60 10/20/19 14:35 Resp 16 10/20/19 14:35 BP 134/73 10/20/19 14:35 Pulse Ox 97 10/20/19 14:35 Intake & Output 10/19/19 10/20/19 10/20/19 18:59 06:59 18:59 Intake Total 120 60 390 Output Total 500 Balance 120 -440 390 Intake: IV 150 Sodium Chloride 0.9% 1, 75 000 ml @ 75 mls/hr IV . [id number] [facility] Rx#:[id number] Oral 120 60 240 Output: Urine 500 Other: Voiding Method Toilet Toilet Urinal Urinal # Voids 1 1 - Exam General: non toxic, no distress, appears at stated age Derm: warm, dry Head: atraumatic, normocephalic, symmetric Eyes: EOMI, no lid lag, anicteric sclera Mouth: no lip lesion, mucus membranes moist Cardiovascular: S1S2 reg, no murmur, positive posterior tibial pulse bilateral, Lungs: CTA bilateral, no rhonchi, no rales , no accessory muscle use Abdominal: soft, nontender to palpation, no guarding, no appreciable organomegaly Ext: no gross muscle atrophy, no edema, no contractures Neuro: CN II-XI grossly intact, no focal neuro deficits Psych: Alert, oriented, appropriate affect - Labs CBC & Chem 7: 10/18/19 17:51 10/18/19 17:51 Assessment and Plan Assessment: Syncopal episode with ventricular tachycardia on telemetry -Lopressor -Cardiology recommendations -Telemetry -EP evaluation 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
[2019-10-21] MEDS: SODIUM CHLORIDE 0.9% 1,000 ML IV SCH (00:25)
[2019-10-21 00:48] VITALS: RESP 16
[2019-10-21] MEDS: LEVOTHYROXINE 100 MCG TAB PO SCH (06:26)
[2019-10-21 08:53] LABS: HCT 43.3 % (39.0-53.0); HGB 14.2 gm/dL (13.0-17.5); MCH 33.3 pg (25.0-35.0); MCHC 32.8 g/dL (31.0-37.0); MCV 101.5 fL (80.0-100.0); Macrocytosis Slight; Mean Platelet Volume 10.3; Platelet Count 136 k/uL (150-450); RBC 4.27 m/uL (4.30-5.90); RDW 13.1 % (11.5-15.5); WBC 4.7 k/uL (3.8-10.6)
[2019-10-21] MEDS ORDERED: ASPIRIN 81 MG PO SCH (09:00)
[2019-10-21 09:06] LABS: African American GFR (CKD) >90 (>60 ml/min/1.73 sqM); Anion Gap 6 mmol/L; Blood Urea Nitrogen 16 mg/dL (9-20); Calcium 8.9 mg/dL (8.4-10.2); Carbon Dioxide 23 mmol/L (22-30); Chloride 107 mmol/L (98-107); Glucose 140 mg/dL (74-99); Non-African American GFR(CKD) 81 (>60 ml/min/1.73 sqM); Potassium 4.6 mmol/L (3.5-5.1); Sodium 136 mmol/L (137-145)
[2019-10-21] MEDS: METOPROLOL TARTRATE 25 MG TAB PO SCH (09:06)
[2019-10-21] MEDS: lisinopriL 20 MG TAB PO SCH (09:07)
[2019-10-21] MEDS: HEPARIN SODIUM,PORCINE 5,000 UNIT/ML 1 ML VIAL SQ SCH (09:07)
[2019-10-21] MEDS: ATORVASTATIN 40 MG TAB PO SCH (09:07)
[2019-10-21 11:21] VITALS: TEMP 98.1
--- NOTE | 2019-10-21 12:58 | P.DS ---
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 In the ER he underwent an extensive evaluation. On arrival his vital signs were within normal limits. Laboratory analysis showed a platelet count of 141 but was otherwise unremarkable. Troponin was negative. EKG was nonischemic. He underwent a CT head and cervical spine which showed mild cerebral atrophy and mild to moderate spurring of the cervical spine. Chest x- ray showed an elevated right hemidiaphragm. He was admitted for further workup of his syncopal episode. He was noted to have a run of ventricular tachycardia. Cardiology was consulted. He underwent an echocardiogram which showed an overall left ventricular systolic cardiomyopathy with an ejection fraction of 45-50% as well as mild aortic stenosis. Cardiology recommended cardiac catheterization which was completed on 10/19 which showed mild diffuse disease and recommended medical management. He was continued on his Lipitor and aspirin and was started on lisinopril and Lopressor. He was seen by EP who recommended outpatient EP study with possible ablation. He will maintain on metoprolol. No driving until cleared by cardiology. Patient seen and examined at bedside. No additional chest pain, SOB, nausea, or light headed episodes. Vital signs reviewed and stable. General: non toxic, no distress, appears at stated age Derm: warm, dry Head: atraumatic, normocephalic, symmetric Eyes: EOMI, no lid lag, anicteric sclera Mouth: no lip lesion, mucus membranes moist Cardiovascular: S1S2 reg, no murmur, positive posterior tibial pulse bilateral, Lungs: CTA bilateral, no rhonchi, no rales , no accessory muscle use Abdominal: soft, nontender to palpation, no guarding, no appreciable organomegaly Ext: no gross muscle atrophy, no edema, no contractures Neuro: CN II-XI grossly intact, no focal neuro deficits Psych: Alert, oriented, appropriate affect A total of 35 minutes of time were spent preparing this complex discharge summary . Patient Condition at Discharge: Stable Plan - Discharge Summary New Discharge Prescriptions: New Metoprolol Tartrate [Lopressor] 25 mg PO BID #60 tab Continue Levothyroxine Sodium [Synthroid] 100 mcg PO DAILY Ergocalciferol [Vitamin D2 (DRISDOL)] 50,000 unit PO SA Enalapril [Vasotec] 20 mg PO DAILY C,E,Zinc,Copper 11/Yqqss7e/Lut [Ocuvite Adult 50 Plus Softgel] 1 tab PO DAILY Atorvastatin [Lipitor] 40 mg PO DAILY Aspirin [Adult Low Dose Aspirin EC] 81 mg PO DAILY Vitamin B Complex (Unknown Strength) 1 tab PO DAILY Krill Oil 300mg 1 tab PO DAILY Serrapeptase (Unknown Strength) 1 tab PO DAILY Discharge Medication List Aspirin [Adult Low Dose Aspirin EC] 81 mg PO DAILY 10/18/19 [History] Atorvastatin [Lipitor] 40 mg PO DAILY 10/18/19 [History] C,E,Zinc,Copper 11/Vyfcg0t/Lut [Ocuvite Adult 50 Plus Softgel] 1 tab PO DAILY 10/18/19 [History] Enalapril [Vasotec] 20 mg PO DAILY 10/18/19 [History] Ergocalciferol [Vitamin D2 (DRISDOL)] 50,000 unit PO SA 10/18/19 [History] Krill Oil 300mg 1 tab PO DAILY 10/18/19 [History] Levothyroxine Sodium [Synthroid] 100 mcg PO DAILY 10/18/19 [History] Serrapeptase (Unknown Strength) 1 tab PO DAILY 10/18/19 [History] Vitamin B Complex (Unknown Strength) 1 tab PO DAILY 10/18/19 [History] Metoprolol Tartrate [Lopressor] 25 mg PO BID #60 tab 10/21/19 [Rx] Follow up Appointment(s)/Referral(s): Wellington Delgado MD [Primary Care Provider] - 1-2 days Tray Live MD [STAFF PHYSICIAN] - 1 Week Activity/Diet/Wound Care/Special Instructions: Activity: No driving until seen by cardiology Diet: Heart healthy Discharge Disposition: HOME SELF-CARE
[2019-10-21 15:31] VITALS: BP 151/66; PULSE 77
--- NOTE | 2019-10-21 17:46 | P.CRDCN ---
History of Present Illness History of present illness: This is Dr. 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 Hypertension Dyslipidemia Regular alcohol use Mild LV dysfunction PLAN: I did detailed discussion with the patient regarding the management of wide complex tachycardia/idiopathic RVOT VT I explained his options including EP study and curative radiofrequency ablation as well as medical treatment He has a tendency for sinus bradycardia and we have documented sinus bradycardia during the daytime in the hospital on telemetry I discussed EP study and mapping in detail I discussed radiofrequency ablation I discussed success rates complications including at least 1% chance of cardiac puncture or damage to the electrical circuitry I'll schedule him for an EP study and ablation on November 01. He will stop metoprolol 3 days prior This information was given to the patient HPI Patient presented with a syncopal spell associated with discomfort /sensation in the chest going up into the head and passing out He had recurrent episodes during yard work and when he went into the house he was sitting when he had this episode He had another episode in the hospital and at that time we documented a run of nonsustained ventricular tachycardia Telemetry strips suggest a left bundle branch block morphology and upright QRS in the inferior lead Subsequently he underwent coronary angiography which did not reveal any significant coronary artery disease His cardiac enzymes have been normal He has a history of hypertension, dyslipidemia He quit smoking 40 years back 2-D echo was showed mildly reduced LV systolic function ejection fraction 45-50% Daily heavy alcohol ROS: No fever chills or rigors, no cough, phlegm or expectoration, no nausea, vomiting or diarrhea, no hematuria, dysuria, no musculoskeletal complaints, no strokes or seizures, no skin lesions. EXAMINATION: 124/65 mmHg pulse rate in the 60s, afebrile Breath sounds are clear no rhonchi no crackles Heart sounds normal S1 normal S2 Breath sounds are clear Abdomen soft Extremity is warm no edema REVIEW OF LABS, ECG & MEDICAL DATA Hemoglobin of 14, sodium 136 potassium 4.6, Troponin normal 2 LDL 77 HDL 70 TSH 1.33 Past Medical History Past Medical History: Hyperlipidemia, Hypertension, Thyroid Disorder History of Any Multi-Drug Resistant Organisms: None Reported Additional Past Surgical History / Comment(s): varicose vein surgery, cyst removal from hand Past Anesthesia/Blood Transfusion Reactions: No Reported Reaction Past Psychological History: No Psychological Hx Reported Smoking Status: Former smoker Past Alcohol Use History: Daily Past Drug Use History: None Reported Medications and Allergies Home Medications Medication Instructions Recorded Confirmed Type Aspirin [Adult Low Dose Aspirin EC] 81 mg PO DAILY 10/18/19 10/18/19 History Atorvastatin [Lipitor] 40 mg PO DAILY 10/18/19 10/18/19 History C,E,Zinc,Copper 11/Iztub0p/Lut 1 tab PO DAILY 10/18/19 10/18/19 History [Ocuvite Adult 50 Plus Softgel] Enalapril [Vasotec] 20 mg PO DAILY 10/18/19 10/18/19 History Ergocalciferol [Vitamin D2 50,000 unit PO SA 10/18/19 10/18/19 History (DRISDOL)] Krill Oil 300mg 1 tab PO DAILY 10/18/19 10/18/19 History Levothyroxine Sodium [Synthroid] 100 mcg PO DAILY 10/18/19 10/18/19 History Serrapeptase (Unknown Strength) 1 tab PO DAILY 10/18/19 10/18/19 History Vitamin B Complex (Unknown 1 tab PO DAILY 10/18/19 10/18/19 History Strength) Metoprolol Tartrate [Lopressor] 25 mg PO BID #60 tab 10/21/19 Rx Allergies Allergy/AdvReac Type Severity Reaction Status Date / Time Penicillins Allergy Swelling Verified 10/18/19 19:05 Physical Exam Vitals: Vital Signs Temp Pulse Resp BP BP Pulse Ox 10/21/19 12:00 77 151/66 100 10/21/19 08:00 98.1 F 59 L 151/68 98 10/21/19 06:29 97.8 F 60 16 124/65 98 10/21/19 00:46 98.1 F 60 16 135/69 96 10/20/19 22:47 98.0 F 70 18 127/64 98 10/20/19 20:44 97.9 F 70 16 127/64 98 Intake and Output 10/21/19 10/21/19 10/21/19 06:59 14:59 22:59 Intake Total 250 Balance 250 Intake: Intake, IV Titration 10 Amount Sodium Chloride 0.9% 1, 10 000 ml @ 75 mls/hr IV . [id number] [facility] Rx#:[id number] Oral 240 Other: # Voids 1 Weight 104.8 kg Results 10/21/19 08:31 10/21/19 08:31 CBC 10/21/19 Range/Units 08:31 WBC 4.7 (3.8-10.6) k/uL RBC 4.27 L (4.30-5.90) m/uL Hgb 14.2 (13.0-17.5) gm/dL Hct 43.3 (39.0-53.0) % Plt Count 136 L (150-450) k/uL Comprehensive Metabolic Panel 10/21/19 Range/Units 08:31 Sodium 136 L (137-145) mmol/L Potassium 4.6 (3.5-5.1) mmol/L Chloride 107 (98-107) mmol/L Carbon Dioxide 23 (22-30) mmol/L BUN 16 (9-20) mg/dL Creatinine 0.91 (0.66-1.25) mg/dL Glucose 140 H (74-99) mg/dL Calcium 8.9 (8.4-10.2) mg/dL Intake and Output 10/21/19 10/21/19 10/21/19 06:59 14:59 22:59 Intake Total 250 Balance 250 Intake: Intake, IV Titration 10 Amount Sodium Chloride 0.9% 1, 10 000 ml @ 75 mls/hr IV . [id number] [facility] Rx#:[id number] Oral 240 Other: # Voids 1 Weight 104.8 kg 10/21/19 08:31 10/21/19 08:31
== END 2019-10-21 15:44 | disposition home or self-care (01) | DRG 287 ==
LOC: EC 17:19 → 1SOBS 20:40 → OBSVTOIN 10-19 13:28 → 3SCARD 10-19 15:44
PROVIDERS: ADMIT Internal Medicine; ATTEND Internal Medicine
PROC: B2111ZZ Fluoroscopy of Multiple Coronary Arteries using Low Osmolar Contrast (ICD-10-PCS; principal; 2019-10-20 10:30)
PROC: B2151ZZ Fluoroscopy of Left Heart using Low Osmolar Contrast (ICD-10-PCS; principal; 2019-10-20 10:30)
PROC: 4A023N7 Measurement of Cardiac Sampling and Pressure, Left Heart, Percutaneous Approach (ICD-10-PCS; principal; 2019-10-20 10:30)
DX: I47.2 Ventricular tachycardia (principal); I42.9 Cardiomyopathy, unspecified; I49.3 Ventricular premature depolarization; D69.6 Thrombocytopenia, unspecified; R55 Syncope and collapse; E03.9 Hypothyroidism, unspecified; E78.5 Hyperlipidemia, unspecified; I10 Essential (primary) hypertension; M46.02 Spinal enthesopathy, cervical region; Z11.59 Encounter for screening for other viral diseases; I25.10 Atherosclerotic heart disease of native coronary artery without angina pectoris; R07.9 Chest pain, unspecified; Z79.82 Long term (current) use of aspirin; Z79.890 Hormone replacement therapy; Z79.899 Other long term (current) drug therapy; Z87.891 Personal history of nicotine dependence; Z88.0 Allergy status to penicillin
CPT/HCPCS: 36415; 70450; 71046; 72125; 80048; 80053; 80061; 81003; 83735; 84443; 84484; 85025; 85027; 85610; 85730; 93005; 93306; 93458; 93880; 99285

== ENCOUNTER 2019-11-09 09:51 | Day surgery (SDC) | payer MEDICARE ==
[2019-11-03 13:14] VITALS: BMI 32.1
[~2019-11-09 09:51] MED LIST: HYDROmorphone 0.5 MG/0.5 ML SYRINGE IVP PRN; LACTATED RINGERS 1,000 ML IV SCH; LIDOCAINE 1% (10MG/ML) FOR IV START INTRADERMA PRN; SODIUM CHLORIDE 0.9% 1,000 ML IV SCH
[2019-11-09] MEDS ORDERED: SODIUM CHLORIDE 0.9% 1,000 ML IV ONE (10:37)
[2019-11-09] MEDS ORDERED: LIDOCAINE 1% INJ 10MG/ML (20 ML MDV) ONE ×3 (10:45→13:51)
[2019-11-09] MEDS ORDERED: PROPOFOL 10 MG/ML 20 ML VIAL IV ONE (10:45)
[2019-11-09] MEDS ORDERED: fentaNYL (PF) 50 MCG/ML 2 ML AMP ONE (10:45)
[2019-11-09] MEDS ORDERED: ISOPROTERENOL 250 MCG/1.25 ML SYR IV ONE (10:45)
[2019-11-09] MEDS ORDERED: MIDAZOLAM 2 MG/2 ML VIAL ONE (10:45)
[2019-11-09] MEDS ORDERED: LIDOCAINE 1% INJ 10MG/ML (20 ML MDV) SQ ONE ×2 (11:31→14:02)
[2019-11-09] MEDS ORDERED: CLINDAMYCIN 600 MG in DEXTROSE 5% IN WATER 50 ML IVPB STA ×2 (13:08)
--- NOTE | 2019-11-09 13:51 | P.PCN ---
Preoperative Diagnosis: Diagnosis Syncopal spell Nonobstructive CAD PVCs Nonsustained ventricular tachycardia left bundle branch block type superiorly directed access, one episode on telemetry Procedure Diagnostic EP study with attempted arrhythmia induction CS pacing and recording Programmed stimulation following Isuprel Patient was brought to the EP lab in a fasting state. Written informed consent was obtained prior to the procedure. Regular Preiser prepped and draped as per protocol. Venous sheaths were placed in the right and left femoral veins. Via these catheters were placed in the high right atrium RV apex, RV OT and coronary sinus. Patient was in sinus rhythm. LV PVCs (right bundle morphology) with a superior axis Sinus cycle length 761 ms, RI interval 181 ms, QRS width 110 ms, QT interval 380 ms AH interval 101 ms, HV interval 28 ms Sinus node recovery times at 600, 500, 400 ms were 1170, 1119, and 1066. Corrected sinus recovery times were within normal limits AV node Wenckebach block 360 ms Slow pathway conduction at 400 ms, straight pacing from the CS os Atrial extra stimulation performed and the jump in the AH interval noted@600/360 ms Atrial ERP 600\320 ms, occasional single echo beats, no inducible SVT VA Wenckebach block greater than 600 ms in the baseline state, fully awake Burst stimulation from the RV apex Ventricular extra stimulation from the RV apex after triple extrastimuli, several different drive train cycle lengths used No arrhythmias induced High-dose Isuprel, later at 2 mics then once again high-dose Isuprel and there are 5 mics Very brief nonsustained atrial tachycardia for a few beats and frequent PACs noted Suppression of PVCs AV node Wenckebach block improved to 280 ms Slow pathway at 300 ms Atrial extra stimulation was performed from Kevin sinus and from the high right atrium VA Wenckebach block at 370 ms Atrial extra stimulation after double extrastimuli, 450/less than 200/less than 200 ms Burst stimulation in the atria No sustained SVT that could explain his syncope Ventricular extra stimulation after triple extrastimuli from the RVOT and from the RV apex Burst stimulation from the RVOT and from the RV apex No VT induced EP study continued during the recovery from Isuprel No SVT or VT induced At the end of the procedure all catheters were removed and patient was transferr ed back to telemetry Impression An episode of loss of consciousness Nonsustained VT noted on telemetry likely RVOT No inducible SVT line presence of slow pathway conduction with single echo beats Right bundle branch morphology PVCs at baseline, suppressed with Isuprel Evidence of slow pathway conduction without induction of AV jordan reentry Frequent PACs and atrial couplets and triplets on Isuprel No sustained arrhythmias that could explain syncope Plan Implantation of a loop monitor
--- NOTE | 2019-11-09 13:55 | P.PRLE ---
RE: Baljinder Cortes Dear Dr. Garrett Gale underwent a detailed diagnostic EP study for evaluation of syncope On telemetry the had found a run of nonsustained ventricular tachycardias He has ambient TVCs from the left ventricle We could not induce any SVT or VT both on off Isuprel despite a very detailed induction protocol A loop monitor was implanted I will keep you posted if he finds any sustained arrhythmias that can explain his loss of consciousness in the future Thank you for entrusting me with the care of the patient Warm regards Sincerely Juan Luis Ga
[2019-11-09] MEDS ORDERED: ACETAMINOPHEN IV (For NPO) 1,000 MG in EMPTY BAG 1 BAG IVPB ONE (14:08)
[2019-11-09] MEDS ORDERED: ACETAMINOPHEN TAB 325 MG TAB PO PRN (14:08)
[2019-11-09] MEDS ORDERED: HYDROcodone/APAP 5-325MG 1 EACH TAB PO PRN (14:08)
[2019-11-09] MEDS: METOPROLOL TARTRATE 25 MG TAB PO SCH (20:29)
[2019-11-10 05:16] VITALS: RESP 16
[2019-11-10] MEDS ORDERED: LEVOTHYROXINE 100 MCG TAB PO SCH (06:30)
--- NOTE | 2019-11-10 07:40 | P.DS ---
Providers Attending physician: Juan Luis Ga [facility]: Patient is doing well. He is sitting in a chair comfortably in no dizziness lightheadedness no palpitations Breath sounds are clear no rhonchi no crackles Normal heart sounds normal S1 normal S2 Telemetry shows sinus mechanism Blood pressure 132/81 mmHg afebrile 98.3F pulse rate in the 80s Sounds are clear no rhonchi no crackles Normal heart sounds normal S1 normal S2 Abdomen is soft nontender Extremity was warm no edema Impression Syncope Nonsustained ventricular tachycardia, long run on telemetry Diagnoses EP study shows evidence for slow pathway without induction of AVNRT Frequent LV PVCs No inducible sustained VT or SVT Status post loop monitor implant Nonobstructive CAD Hypertension Plan Continue current medications, continue aspirin, continue metoprolol Continue Vasotec Follow-up with Dr. Live within one week in the office in device clinic Plan - Discharge Summary Discharge Rx Participant: No New Discharge Prescriptions: Continue Levothyroxine Sodium [Synthroid] 100 mcg PO DAILY Ergocalciferol [Vitamin D2 (DRISDOL)] 50,000 unit PO SA Enalapril [Vasotec] 20 mg PO DAILY C,E,Zinc,Copper 11/Frlys2x/Lut [Ocuvite Adult 50 Plus Softgel] 1 tab PO DAILY Atorvastatin [Lipitor] 40 mg PO DAILY Aspirin [Adult Low Dose Aspirin EC] 81 mg PO DAILY Vitamin B Complex (Unknown Strength) 1 tab PO DAILY Krill Oil 300mg 1 tab PO DAILY Serrapeptase (Unknown Strength) 1 tab PO DAILY Metoprolol Tartrate [Lopressor] 25 mg PO BID #60 tab Discharge Medication List Aspirin [Adult Low Dose Aspirin EC] 81 mg PO DAILY 10/18/19 [History] Atorvastatin [Lipitor] 40 mg PO DAILY 10/18/19 [History] C,E,Zinc,Copper 11/Cuvmd9t/Lut [Ocuvite Adult 50 Plus Softgel] 1 tab PO DAILY 10/18/19 [History] Enalapril [Vasotec] 20 mg PO DAILY 10/18/19 [History] Ergocalciferol [Vitamin D2 (DRISDOL)] 50,000 unit PO SA 10/18/19 [History] Krill Oil 300mg 1 tab PO DAILY 10/18/19 [History] Levothyroxine Sodium [Synthroid] 100 mcg PO DAILY 10/18/19 [History] Serrapeptase (Unknown Strength) 1 tab PO DAILY 10/18/19 [History] Vitamin B Complex (Unknown Strength) 1 tab PO DAILY 10/18/19 [History] Metoprolol Tartrate [Lopressor] 25 mg PO BID #60 tab 10/21/19 [Rx] Follow up Appointment(s)/Referral(s): Juan Luis Ga MD [STAFF PHYSICIAN] - As Needed Tray Live MD [STAFF PHYSICIAN] - 2 Weeks (Follow-up in the device clinic in 5 days for suture removal Follow-up with Dr. Live in 2 weeks) Activity/Diet/Wound Care/Special Instructions: Post EP study - Ablation instructions 1. Keep access sites dry for 2 days. 2. No heavy lifting or straining for 2 days. 3. Avoid bending the hips repeatedly for 2 days. 4. You may go up and down stairs slowly Call if the following is noted 1. Bleeding, increasing swelling or pain at the access sites. 2. Increasing chest discomfort, especially upon taking a deep breath. 3. Increasing shortness of breath, at rest or with exertion. 4. Undue cough / phlegm 5. Difficulty or pain while swallowing. 6. Pain or change in color in the extremities. 7. Fever, chills, rigors. 8. Increasing headache or neurologic symptoms. 9. Dizziness, fainting, palpitations Keep wound dry around the loop implant Suture removal in 5 days Discharge Disposition: HOME SELF-CARE
[2019-11-10 08:19] VITALS: BP 135/69; PULSE 68; TEMP 97.4
[2019-11-10] MEDS: METOPROLOL TARTRATE 25 MG TAB PO SCH (08:54)
[2019-11-10] MEDS ORDERED: ATORVASTATIN 40 MG TAB PO SCH (09:00)
[2019-11-10] MEDS ORDERED: ASPIRIN 81 MG PO SCH (09:00)
[2019-11-10] MEDS ORDERED: lisinopriL 20 MG TAB PO SCH (09:00)
--- NOTE | 2019-12-13 17:04 | P.PCN ---
Preoperative Diagnosis: Loop monitor implant with anesthesia in attendance Primary physicians: Undercover Cop: Dr. Ga Indication: Syncope, documented nonsustained RVOT VT, noninducible at EP study, slow pathway without induction of AVNRT Patient was brought to the EP lab in a fasting state. Written informed consent was obtained prior to the procedure. The left pectoral area was prepped and draped per protocol. Intravenous antibiotic was administered preoperatively. A subcutaneous Loop monitor was implanted successfully and the wound was closed per protocol. The device was programmed to detect significant jaz- arrhythmic and tachy-arrhythmic events, per protocol. Device and programming details: Tachycardia and syncope protocol Anesthesia provided by CAROL
== END 2019-11-10 14:00 | disposition home or self-care (01) ==
LOC: CATHEP 09:51 → 3NCARDOBS 14:44 → CATHEP 11-10 14:00
PROVIDERS: ATTEND Internal Medicine Clinical Cardiac Electrophysiology
DX: R55 Syncope and collapse (principal); I25.10 Atherosclerotic heart disease of native coronary artery without angina pectoris; I44.7 Left bundle-branch block, unspecified; I49.3 Ventricular premature depolarization; I47.2 Ventricular tachycardia; I10 Essential (primary) hypertension; E78.49 Other hyperlipidemia; Z97.2 Presence of dental prosthetic device (complete) (partial); Z79.890 Hormone replacement therapy; Z79.82 Long term (current) use of aspirin; Z79.899 Other long term (current) drug therapy; Z88.0 Allergy status to penicillin
CPT/HCPCS: 93623; 93620; 33285; C1894; C1769 ×2; C1730 ×3; C1759; C1764; J2250; J2001; J3010; J2704

== ENCOUNTER 2021-11-06 12:08 | Emergency (ER) | payer MEDICARE ==
[2021-11-06 12:14] VITALS: BP 131/74; PULSE 86; RESP 18; TEMP 97.3
[2021-11-06] MEDS ORDERED: SODIUM CHLORIDE 0.9% 500 ML 500 ML IV STA (14:48)
--- NOTE | 2021-11-06 15:15 | ED ---
Abdominal Pain HPI - General Chief Complaint: Abdominal Pain Stated Complaint: Posible bowel obstruction Time Seen by Provider: 11/06/21 14:31 Source: patient, RN notes reviewed Mode of arrival: ambulatory Limitations: no limitations - History of Present Illness Initial Comments: 81-year-old male presents emergency Department with chief complaint of abdominal pain, constipation. Patient states she's not had a bowel movement over one week. Patient states he had some issues recently but states he is able take small, stuff and relieved the symptoms. Patient denies any prior abdominal surgeries. Patient states never had any recent for constipation. Patient states he tried multiple [id number] things with no relief. No dysuria no hematuria denies any nausea vomiting no diarrhea rear prior no fever or chills. - Related Data Home Medications Medication Instructions Recorded Confirmed Aspirin [Adult Low Dose Aspirin EC] 81 mg PO DAILY 10/18/19 11/03/19 Atorvastatin [Lipitor] 40 mg PO DAILY 10/18/19 11/03/19 C,E,Zinc,Copper 11/Asfbj5l/Lut 1 tab PO DAILY 10/18/19 11/03/19 [Ocuvite Adult 50 Plus Softgel] Enalapril [Vasotec] 20 mg PO DAILY 10/18/19 11/03/19 Ergocalciferol [Vitamin D2 50,000 unit PO SA 10/18/19 11/03/19 (DRISDOL)] Krill Oil 300mg 1 tab PO DAILY 10/18/19 11/03/19 Levothyroxine Sodium [Synthroid] 100 mcg PO DAILY 10/18/19 11/03/19 Serrapeptase (Unknown Strength) 1 tab PO DAILY 10/18/19 11/03/19 Vitamin B Complex (Unknown 1 tab PO DAILY 10/18/19 11/03/19 Strength) Previous Rx's Medication Instructions Recorded Metoprolol Tartrate [Lopressor] 25 mg PO BID #60 tab 10/21/19 Tamsulosin [Flomax] 0.4 mg PO DAILY #30 cap 11/06/21 Allergies Allergy/AdvReac Type Severity Reaction Status Date / Time Penicillins Allergy Swelling Verified 11/06/21 12:10 Review of Systems ROS Statement: Those systems with pertinent positive or pertinent negative responses have been documented in the HPI. ROS Other: All systems not noted in ROS Statement are negative. Past Medical History Past Medical History: Hyperlipidemia, Hypertension History of Any Multi-Drug Resistant Organisms: None Reported Additional Past Surgical History / Comment(s): varicose vein surgery, cyst removal from hand Past Anesthesia/Blood Transfusion Reactions: No Reported Reaction Past Psychological History: No Psychological Hx Reported Smoking Status: Former smoker Past Alcohol Use History: Daily Past Drug Use History: None Reported - Past Family History Mother Family Medical History: No Reported History General Exam Limitations: no limitations General appearance: alert, in no apparent distress Head exam: Present: atraumatic, normocephalic, normal inspection Eye exam: Present: normal appearance, PERRL, EOMI. Absent: scleral icterus, conjunctival injection, periorbital swelling ENT exam: Present: normal exam, normal oropharynx, mucous membranes moist Neck exam: Present: normal inspection, full ROM. Absent: tenderness, meningismus, lymphadenopathy Respiratory exam: Present: normal lung sounds bilaterally. Absent: respiratory distress, wheezes, rales, rhonchi, stridor Cardiovascular Exam: Present: regular rate, normal rhythm, normal heart sounds. Absent: systolic murmur, diastolic murmur, rubs, gallop, clicks GI/Abdominal exam: Present: soft, tenderness, normal bowel sounds. Absent: distended, guarding, rebound, rigid Back exam: Absent: CVA tenderness (R), CVA tenderness (L) Neurological exam: Present: alert, oriented X3 Skin exam: Present: warm, dry, intact, normal color. Absent: rash Course Vital Signs 11/06/21 12:10 Temperature 97.3 F L Pulse Rate 86 Respiratory 18 Rate Blood Pressure 131/74 O2 Sat by Pulse 96 Oximetry Medical Decision Making - Medical Decision Making 81-year-old male presented for constipation possible obstruction and she's. CT was obtained which does not show any evidence of obstruction. Did show dilated bladder and which patient urinated after CT. Patient did have bladder scan with no significant evidence of retention. He was informed that he has enlarged prostate on CT, pancreatic cysts and recommends three-month recheck, diverticulosis changes. Patient has not had a bowel movement. Patient we given magnesium citrate, patient discharged with Flomax. Follow-up with urology, GI return parameters were discussed. - Lab Data Result diagrams: 11/06/21 14:53 11/06/21 14:53 Lab Results 11/06/21 11/06/21 11/06/21 Range/Units 14:53 14:53 16:03 WBC 3.9 (3.8-10.6) k/uL RBC 4.50 (4.30-5.90) m/uL Hgb 15.2 (13.0-17.5) gm/dL Hct 45.7 (39.0-53.0) % MCV 101.4 H (80.0-100.0) fL MCH 33.9 (25.0-35.0) pg MCHC 33.4 (31.0-37.0) g/dL RDW 13.2 (11.5-15.5) % Plt Count 169 (150-450) k/uL MPV 9.6 Neutrophils % 59 % Lymphocytes % 24 % Monocytes % 11 % Eosinophils % 1 % Basophils % 1 % Neutrophils # 2.3 (1.3-7.7) k/uL Lymphocytes # 0.9 L (1.0-4.8) k/uL Monocytes # 0.4 (0-1.0) k/uL Eosinophils # 0.1 (0-0.7) k/uL Basophils # 0.0 (0-0.2) k/uL Macrocytosis Slight Sodium 129 L (137-145) mmol/L Potassium 3.9 (3.5-5.1) mmol/L Chloride 94 L (98-107) mmol/L Carbon Dioxide 25 (22-30) mmol/L Anion Gap 10 mmol/L BUN 10 (9-20) mg/dL Creatinine 0.80 (0.66-1.25) mg/dL Est GFR (CKD-EPI)AfAm >90 (>60 ml/min/1.73 sqM) Est GFR (CKD-EPI)NonAf 85 (>60 ml/min/1.73 sqM) Glucose 83 (74-99) mg/dL Calcium 9.0 (8.4-10.2) mg/dL Total Bilirubin 1.2 (0.2-1.3) mg/dL AST 31 (17-59) U/L ALT 22 (4-49) U/L Alkaline Phosphatase 63 (38-126) U/L Total Protein 6.5 (6.3-8.2) g/dL Albumin 3.9 (3.5-5.0) g/dL Amylase 37 (30-110) U/L Lipase 94 (23-300) U/L Urine Color Yellow Urine Appearance Clear (Clear) Urine pH 6.5 (5.0-8.0) Ur Specific [place] 1.009 (1.001-1.035) Urine Protein Negative (Negative) Urine Glucose (UA) Negative (Negative) Urine Ketones Negative (Negative) Urine Blood Negative (Negative) Urine Nitrite Negative (Negative) Urine Bilirubin Negative (Negative) Urine Urobilinogen <2.0 (<2.0) mg/dL Ur Leukocyte Esterase Negative (Negative) Disposition Clinical Impression: Constipation, BPH (benign prostatic hyperplasia) Disposition: HOME SELF-CARE Condition: Stable Instructions (If sedation given, give patient instructions): Constipation (ED), High Fiber Diet (ED), Enlarged Prostate (BPH) (ED) Additional Instructions: Please return to the Emergency Department if symptoms worsen or any other concerns. Prescriptions: Tamsulosin [Flomax] 0.4 mg PO DAILY #30 cap Is patient prescribed a controlled substance at d/c from ED?: No Referrals: Wellington Delgado MD [Primary Care Provider] - 1-2 days Jackie Parks MD [STAFF PHYSICIAN] - 1-2 days Anibal Headley MD [STAFF PHYSICIAN] - 1-2 days Time of Disposition: 16:41
[2021-11-06 15:18] LABS: Basophils % (A) 1 %; Eosinophils # (A) 0.1 k/uL (0-0.7); Eosinophils % (A) 1 %; HCT 45.7 % (39.0-53.0); HGB 15.2 gm/dL (13.0-17.5); Lymphocytes # (A) 0.9 k/uL (1.0-4.8); Lymphocytes % (A) 24 %; MCH 33.9 pg (25.0-35.0); MCHC 33.4 g/dL (31.0-37.0); MCV 101.4 fL (80.0-100.0); Macrocytosis Slight; Mean Platelet Volume 9.6; Monocytes # (A) 0.4 k/uL (0-1.0); Monocytes % (A) 11 %; Neutrophils # (A) 2.3 k/uL (1.3-7.7); Neutrophils % (A) 59 %; Platelet Count 169 k/uL (150-450); RDW 13.2 % (11.5-15.5); WBC 3.9 k/uL (3.8-10.6)
[2021-11-06 15:21] LABS: ALT 22 U/L (4-49); AST 31 U/L (17-59); African American GFR (CKD) >90 (>60 ml/min/1.73 sqM); Albumin 3.9 g/dL (3.5-5.0); Alkaline Phosphatase 63 U/L (38-126); Amylase 37 U/L (30-110); Anion Gap 10 mmol/L; Blood Urea Nitrogen 10 mg/dL (9-20); Carbon Dioxide 25 mmol/L (22-30); Chloride 94 mmol/L (98-107); Glucose 83 mg/dL (74-99); Lipase 94 U/L (23-300); Non-African American GFR(CKD) 85 (>60 ml/min/1.73 sqM); Sodium 129 mmol/L (137-145); Total Bilirubin 1.2 mg/dL (0.2-1.3); Total Protein 6.5 g/dL (6.3-8.2)
[2021-11-06 15:25] LABS: Potassium 3.9 mmol/L (3.5-5.1)
--- NOTE | 2021-11-06 15:32 | CT ---
EXAMINATION TYPE: CT abdomen pelvis wo con DATE OF EXAM: 11/06/2021 COMPARISON: None HISTORY: 81-year-old male with abdominal pain, complaining of urine retention and constipation CT DLP: 1153.4 mGycm. Automated exposure control for dose reduction was used. TECHNIQUE: Contiguous axial scanning of the abdomen and pelvis without IV contrast. Coronal and sagit bouchra reconstructions performed. FINDINGS: LUNG BASES: Mildly enlarged caliber to the main right and left pulmonary arteries up to 2.8 cm may re flect underlying pulmonary hypertension. Dense mitral annular calcifications. A loop recorder device anterior left chest wall. Extensive LAD coronary artery calcifications. Prominent breathing motion at the lower lungs limiting the assessment here. LIVER/GB: Limited by prominent breathing motion. There appears to be a 1.3 cm gallstone. No abnormal gallbladder distention. PANCREAS: 1.9 cm nodular prominence at the tail of the pancreas on a background of generalized fatty atrophy. This could represent some preserved pancreatic parenchyma. Follow-up recommended to exclude the possibility of an early mass. SPLEEN: No significant abnormality is seen. ADRENALS: No significant abnormality is seen. KIDNEYS: Mild bilateral perinephric edema could represent senescent change or chronic kidney disease. 1.9 cm cortical hypodensity posterior upper pole right kidney could represent a cyst. BOWEL: No dilated small bowel, free fluid, or free air. Normal appendix. No significant stool burden. Generalized sigmoid diverticulosis. No pericolonic inflammatory change. LYMPH NODES: No mesenteric or retroperitoneal lymphadenopathy. Moderate atherosclerotic calcification s abdominal aorta. Small fatty umbilical hernia. PELVIS: Bladder is urine distended up to 12.0 cm craniocaudal. Prostate gland enlargement 5.6 cm wide . Scattered pelvic phlebolith. No abnormal fluid collection in the pelvis or pelvic lymphadenopathy. BONES: Mild to moderate degenerative change both hips. Degenerative bridging bony spurring right SI j oint. Hypertrophic facet arthropathy throughout. Dictation the lower thoracic spine. Moderate to adva nced degenerative disc disease throughout. Degenerative grade 1 anterolisthesis L4-L5 and L5-S1. IMPRESSION: 1. Prominent distention of the urinary bladder up to 12.0 cm. If concern for urinary retention, cons ider pre and post void bladder ultrasound. 2. Prostatomegaly at 5.6 cm wide. Query any symptoms of BPH. 3. A 1.2 cm gallstone. 4. Pancreatic atrophy. There is 1.9 cm nodular prominence to the tail of the pancreas. This could re present some preserved pancreatic parenchyma. Three-month follow-up CT to reassess an exclude a small early solid early mass. 5. Sigmoid diverticulosis without acute diverticulitis. Small fatty umbilical hernia. CAD with exten sive LAD coronary artery calcifications. Suspect underlying pulmonary arterial hypertension.
[2021-11-06 16:26] LABS: Appearance,Urine Clear (Clear); Bilirubin,Urine Negative (Negative); Blood,Urine Negative (Negative); Color,Urine Yellow; Glucose,Urine (UA) Negative (Negative); Ketones,Urine Negative (Negative); Leukocyte Esterase,Urine Negative (Negative); Nitrite,Urine Negative (Negative); PH, Urine 6.5 (5.0-8.0); Protein,Urine Negative (Negative); Specific Gravity,Urine 1.009 (1.001-1.035); Urobilinogen,Urine <2.0 mg/dL (<2.0)
[2021-11-06] MEDS ORDERED: MAGNESIUM CITRATE 296 ML BOTTLE PO ONE (16:44)
== END 2021-11-06 17:30 | disposition home or self-care (01) ==
LOC: EC 12:08
DX: N40.0 Benign prostatic hyperplasia without lower urinary tract symptoms (principal); K59.00 Constipation, unspecified; I10 Essential (primary) hypertension; E78.5 Hyperlipidemia, unspecified; Z87.891 Personal history of nicotine dependence; Z88.0 Allergy status to penicillin; Z88.2 Allergy status to sulfonamides; Z79.899 Other long term (current) drug therapy
CPT/HCPCS: 36415; 74176; 80053; 81003; 82150; 83690; 85025; 96360; 99284

== ENCOUNTER 2021-12-25 07:30 | Observation (INO) | payer MEDICARE ==
[2021-12-25] MEDS ORDERED: ASPIRIN 81 MG PO STA (07:45)
--- NOTE | 2021-12-25 08:05 | ED ---
Chest Pain HPI - General Chief Complaint: Chest Pain Stated Complaint: Chest pain Time Seen by Provider: 12/25/21 07:34 Source: patient, RN notes reviewed Mode of arrival: ambulatory Limitations: no limitations - History of Present Illness Initial Comments: 81-year-old male presents emergency Department with chief complaint of chest discomfort. Patient states started on Zithromax morning. Patient states initially did not feel and pain when he woke up. He states it's a dull type pain and sent to the left side of his chest he denies any radiation. Patient states that he just feels short of breath has been given with leg swelling which was placed on Lasix and taking for last 10 days by his reel fed printer. Patient also scheduled to have his loop recorder read today. Patient states he was supposed to see. Cardiology. Patient denies any diaphoretic episodes no nausea vomiting no back pain no head or neck pain. - Related Data Home Medications Medication Instructions Recorded Confirmed Aspirin [Adult Low Dose Aspirin EC] 81 mg PO DAILY 10/18/19 11/03/19 Atorvastatin [Lipitor] 40 mg PO DAILY 10/18/19 11/03/19 C,E,Zinc,Copper 11/Cgcdc1a/Lut 1 tab PO DAILY 10/18/19 11/03/19 [Ocuvite Adult 50 Plus Softgel] Enalapril [Vasotec] 20 mg PO DAILY 10/18/19 11/03/19 Ergocalciferol [Vitamin D2 50,000 unit PO SA 10/18/19 11/03/19 (DRISDOL)] Krill Oil 300mg 1 tab PO DAILY 10/18/19 11/03/19 Levothyroxine Sodium [Synthroid] 100 mcg PO DAILY 10/18/19 11/03/19 Serrapeptase (Unknown Strength) 1 tab PO DAILY 10/18/19 11/03/19 Vitamin B Complex (Unknown 1 tab PO DAILY 10/18/19 11/03/19 Strength) Previous Rx's Medication Instructions Recorded Metoprolol Tartrate [Lopressor] 25 mg PO BID #60 tab 10/21/19 Tamsulosin [Flomax] 0.4 mg PO DAILY #30 cap 11/06/21 Allergies Allergy/AdvReac Type Severity Reaction Status Date / Time Penicillins Allergy Swelling Verified 12/25/21 07:38 Review of Systems ROS Statement: Those systems with pertinent positive or pertinent negative responses have been documented in the HPI. ROS Other: All systems not noted in ROS Statement are negative. EKG Findings - EKG Comments: EKG Findings:: EKG performed at 17:44 sinus rhythm with noted PVC, rate of 66 [place] 203 QRS 119 QT/QTc 443/457 Past Medical History Past Medical History: Hyperlipidemia, Hypertension History of Any Multi-Drug Resistant Organisms: None Reported Additional Past Surgical History / Comment(s): varicose vein surgery, cyst removal from hand Past Anesthesia/Blood Transfusion Reactions: No Reported Reaction Past Psychological History: No Psychological Hx Reported Smoking Status: Former smoker Past Alcohol Use History: Daily Past Drug Use History: None Reported - Past Family History Mother Family Medical History: No Reported History General Exam General appearance: alert, in no apparent distress Head exam: Present: atraumatic, normocephalic, normal inspection Eye exam: Present: normal appearance, PERRL, EOMI. Absent: scleral icterus, conjunctival injection, periorbital swelling ENT exam: Present: normal exam, mucous membranes moist Neck exam: Present: normal inspection, full ROM. Absent: tenderness, meningismus, lymphadenopathy Respiratory exam: Present: normal lung sounds bilaterally. Absent: respiratory distress, wheezes, rales, rhonchi, stridor Cardiovascular Exam: Present: regular rate, normal rhythm, normal heart sounds. Absent: systolic murmur, diastolic murmur, rubs, gallop, clicks GI/Abdominal exam: Present: soft, normal bowel sounds. Absent: distended, tenderness, guarding, rebound, rigid Extremities exam: Present: pedal edema (Minimal). Absent: calf tenderness Neurological exam: Present: alert Skin exam: Present: warm, dry, intact, normal color. 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 Patient chest pain has improved he is currently being worked up by cardiology in which she had a loop recorder places. Follow-up today and have echocardiogram and further evaluation patient developed chest pain initial labs were not revealing acute findings patient on monitor is noted to have sinus tachycardia. Patient will be admitted for further workup and evaluation. Disposition Clinical Impression: Chest pain, Tachycardia Disposition: ADMITTED IP TO THIS HOSP Referrals: None,Stated [Primary Care Provider] - 1-2 days Time of Disposition: 09:40
[2021-12-25 08:40] LABS: Basophils % (A) 1 %; Eosinophils # (A) 0.1 k/uL (0-0.7); Eosinophils % (A) 3 %; HCT 45.5 % (39.0-53.0); HGB 15.1 gm/dL (13.0-17.5); Lymphocytes # (A) 0.7 k/uL (1.0-4.8); Lymphocytes % (A) 23 %; MCH 32.4 pg (25.0-35.0); MCHC 33.3 g/dL (31.0-37.0); MCV 97.5 fL (80.0-100.0); Mean Platelet Volume 9.3; Monocytes # (A) 0.4 k/uL (0-1.0); Monocytes % (A) 12 %; Neutrophils # (A) 1.8 k/uL (1.3-7.7); Neutrophils % (A) 58 %; Platelet Count 163 k/uL (150-450); RBC 4.67 m/uL (4.30-5.90); RDW 12.7 % (11.5-15.5); WBC 3.2 k/uL (3.8-10.6)
--- NOTE | 2021-12-25 08:59 | XR ---
EXAMINATION TYPE: XR chest 2V DATE OF EXAM: 12/25/2021 COMPARISON: 10/18/2019 HISTORY: 81-year-old male with chest pain TECHNIQUE: PA and lateral views FINDINGS: Heart normal size. Atherosclerotic arch calcifications. Interstitial prominence similar to slightly i ncreased. Asymmetric elevation right hemidiaphragm may be secondary to eventration. Loop recorder dev ice projects at the left side of the heart. No consolidation or pleural effusion. IMPRESSION: 1. Interstitial density appears largely chronic. It may be slightly increased. Query any symptoms of bronchitis or asthma. Otherwise, no acute process seen. 2. Redemonstrated asymmetric elevation right hemidiaphragm which may be due to diaphragmatic eventrat ion. If concern for hemidiaphragmatic paralysis, a fluoroscopic sniff test could be considered.
[2021-12-25 09:02] LABS: ALT 24 U/L (4-49); AST 28 U/L (17-59); African American GFR (CKD) >90 (>60 ml/min/1.73 sqM); Albumin 3.9 g/dL (3.5-5.0); Alkaline Phosphatase 72 U/L (38-126); Anion Gap 11 mmol/L; Blood Urea Nitrogen 8 mg/dL (9-20); Calcium 9.1 mg/dL (8.4-10.2); Carbon Dioxide 24 mmol/L (22-30); Chloride 94 mmol/L (98-107); Glucose 119 mg/dL (74-99); Magnesium 1.6 mg/dL (1.6-2.3); Non-African American GFR(CKD) 84 (>60 ml/min/1.73 sqM); Partial Thromboplastin Time 25.3 sec (22.0-30.0); Potassium 3.7 mmol/L (3.5-5.1); Prothrombin Time 10.8 sec (9.0-12.0); Sodium 129 mmol/L (137-145); Total Bilirubin 0.8 mg/dL (0.2-1.3); Total Protein 6.1 g/dL (6.3-8.2)
[2021-12-25] MEDS ORDERED: NITROGLYCERIN SL TABS 0.4 MG TAB SUBLINGUAL PRN (09:40)
[2021-12-25] MEDS ORDERED: hydroCHLOROthiazide 25 MG TAB PO SCH (11:30)
[2021-12-25] MEDS: ATORVASTATIN 40 MG TAB PO SCH (12:21)
[2021-12-25] MEDS: lisinopriL 20 MG TAB PO SCH (12:21)
[2021-12-25] MEDS ORDERED: NALOXONE 0.4 MG/ML 1 ML VIAL IV PRN (14:16)
--- NOTE | 2021-12-25 14:45 | P.HPIM ---
History of Present Illness H&P Date: 12/25/21 Chief Complaint: chest pain Patient is a 81-year-old male with history of hypertension, hypothyroidism, dyslipidemia presenting with complaints of chest pain. He claims that his chest pain started around 6 AM this morning, was substernal, pressure-like, 1/10, nonradiating. He claims that he has never had similar chest pain before. He was previously evaluated for syncope , and had EP study which was unrevealing. He was sent home with loop recorder. He claims that his chest pain has now subsided. He denies any abdominal pain, shortness of breath, palpitations, sick contacts, travel history. He denies any urinary or bowel complaints. In the ED his vital signs were stable, labs were mostly unremarkable except for sodium of 129. His troponin was negative. EKG demonstrated first-degree AV block with sinus rhythm. Chest x-ray demonstrated a right hemidiaphragm. Pertinent positives and negatives as discussed in HPI, a complete review of systems was performed and all other systems are negative. Patient seen and examined at bedside. Vital signs reviewed General: nontoxic, no distress, appears at stated age Derm: warm, dry Head: atraumatic, normocephalic, symmetric Eyes: EOMI, no lid lag, anicteric sclera, pupils equal round reactive to light ENT: Nose and ears atraumatic, no thrush, no pharyngeal erythema Neck: No thyromegaly, no cervical lymphadenopathy, trachea midline, supple Mouth: no lip lesion, mucus membranes moist Cardiovascular: S1S2 reg, no murmur, positive posterior tibial pulse bilateral, no edema, capillary refill less than 2 seconds Lungs: clear to auscultation bilateral, no rhonchi, no rales, no wheeze, no accessory muscle use Abdominal: soft, nontender to palpation, no guarding, no appreciable organomegaly, normal bowel sounds Ext: no gross muscle atrophy, muscle strength muscle strength 5 out of 5 in all 4 extremities, no contractures Neuro: CN II-XII grossly intact, light touch intact all 4 extremities, finger to nose within normal limits, Psych: Alert, oriented, appropriate affect Assessment/Plan: Chest pain, rule out ACS -Continue telemetry, previous loop recorder in place, interrogate if possible -Currently chest pain-free -EKG does not show any significant ST-T wave changes -Troponin 2 negative, continue to trend -echo pending -Aspirin, statin -lipid panel pending -Cardiology consult, pending recommendation Mild asymptomatic hyponatremia - holding home HCTZ - patient appears euvolemic Nonobstructive CAD Hypertension - holding home HCTZ Hyperthyroidism - TSH pending The patient is admitted with an anticipated less than 2 midnight stay for evaluation of chest pain. Surrogate decision-maker: CODE STATUS: Full Code DVT prophylaxis: Heparin subcu Anticipated discharge date: 12/26/[address]: home A total of 45 minutes was spent on the care of this complex patient more than 50% of the time was spent in counseling and care coordination. Past Medical History Past Medical History: Hyperlipidemia, Hypertension History of Any Multi-Drug Resistant Organisms: None Reported Additional Past Surgical History / Comment(s): varicose vein surgery, cyst removal from hand Past Anesthesia/Blood Transfusion Reactions: No Reported Reaction Past Psychological History: No Psychological Hx Reported Smoking Status: Former smoker Past Alcohol Use History: Daily Past Drug Use History: None Reported - Past Family History Mother Family Medical History: No Reported History Medications and Allergies Home Medications Medication Instructions Recorded Confirmed Type Atorvastatin [Lipitor] 40 mg PO DAILY 10/18/19 12/25/21 History Enalapril [Vasotec] 20 mg PO DAILY 10/18/19 12/25/21 History Krill Oil 300mg 1 tab PO DAILY 10/18/19 12/25/21 History Levothyroxine Sodium [Synthroid] 100 mcg PO DAILY 10/18/19 12/25/21 History Serrapeptase 120,000 Iu 120,000 unit PO DAILY 12/25/21 12/25/21 History Vitamin B Complex 1 cap PO DAILY 12/25/21 12/25/21 History carvediloL [Coreg] 3.125 mg PO BID 12/25/21 12/25/21 History hydroCHLOROthiazide [Hydrodiuril] 25 mg PO DAILY 12/25/21 12/25/21 History Allergies Allergy/AdvReac Type Severity Reaction Status Date / Time Penicillins Allergy Swelling Verified 12/25/21 11:06 Physical Exam Vitals: Vital Signs Temp Pulse Pulse Resp BP BP Pulse Ox 12/25/21 14:02 98.0 F 99 18 152/82 99 12/25/21 11:05 98.4 F 79 18 141/87 98 12/25/21 09:54 78 18 128/65 99 12/25/21 08:24 69 18 133/72 96 12/25/21 08:15 67 12/25/21 07:33 97.9 F 70 18 160/80 100 Intake and Output 12/24/21 12/25/21 12/25/21 22:59 06:59 14:59 Intake Total 120 Balance 120 Intake: Oral 120 Other: # Voids 1 Weight 104.326 kg Results CBC & Chem 7: 12/25/21 08:24 12/25/21 08:24 Labs: Abnormal Lab Results - Last 24 Hours (Table) 12/25/21 12/25/21 Range/Units 08:24 08:24 WBC 3.2 L (3.8-10.6) k/uL Lymphocytes # 0.7 L (1.0-4.8) k/uL Sodium 129 L (137-145) mmol/L Chloride 94 L (98-107) mmol/L BUN 8 L (9-20) mg/dL Glucose 119 H (74-99) mg/dL Total Protein 6.1 L (6.3-8.2) g/dL Thrombosis Risk Factor Assmnt - Choose All That Apply Each Risk Factor Represents 3 Points: Age 75 years or older Thrombosis Risk Factor Assessment Total Risk Factor Score: 3 Thrombosis Risk Factor Assessment Level: Moderate Risk
[2021-12-25] MEDS: HEPARIN SODIUM,PORCINE/PF 5,000 UNIT/0.5 ML SYRINGE SQ SCH ×2 (17:18→23:09)
[2021-12-25] MEDS ORDERED: carvediloL 3.125 MG TAB PO SCH ×2 (17:30→21:00)
[2021-12-26] MEDS ORDERED: LEVOTHYROXINE 100 MCG TAB PO SCH (06:30)
[2021-12-26] MEDS ORDERED: ASPIRIN 81 MG PO SCH (09:00)
[2021-12-26] MEDS ORDERED: AMINOPHYLLINE 500 MG/20 ML VIAL IV PRN (09:00)
[2021-12-26] MEDS ORDERED: CAFFEINE CITRATE 60 MG/3 ML VIAL IV PRN (09:00)
[2021-12-26] MEDS ORDERED: FOLIC ACID-VIT B COMPLEX-VIT C 1 CAP PO SCH (09:00)
[2021-12-26] MEDS ORDERED: ASPIRIN 325 MG TAB PO SCH (09:00)
[2021-12-26] MEDS ORDERED: REGADENOSON 0.4 MG/5 ML SYRINGE IV PRN (09:00)
[2021-12-26 09:25] LABS: African American GFR (CKD) 73.1 (60.0-200.0); BUN/Creat Ratio 10.64 Ratio (12.00-20.00); Blood Urea Nitrogen 11.7 mg/dL (9.0-27.0); Calcium 9.1 mg/dL (8.7-10.3); Carbon Dioxide 30.3 mmol/L (20.0-27.5); Chloride 96 mmol/L (96-109); Chol/HDL Ratio 1.93 Ratio; Glucose 121 mg/dL (70-110); LDL Cholesterol,Calculated 44.7 mg/dL (0.0-131.0); Non-African American GFR(CKD) 63.1 (60.0-200.0); Potassium 3.9 mmol/L (3.5-5.5); Sodium 134 mmol/L (135-145)
--- NOTE | 2021-12-26 09:42 | CA ---
Transthoracic Echo Report Name: Baljinder Cortes Age: 81 Gender: M : 1940 Exam Date: 12/25/2021 10:15 Exam Location: [facility] Ht (in): 70 Wt (lb): 230 Ordering Physician: Jama Brumfield Attending/Referring Phys: [id number], Octaviano Laboratory Technology Teacher Orin Gilbert RDCS Procedure CPT: Indications: Chest Pain Cardiac Hx: Technical Quality: Technically difficult study Contrast 1: Lumason Total Dose (mL): 4 Contrast 2: Total Dose (mL): MEASUREMENTS (Male / Female) Normal Values 2D ECHO LV Diastolic Diameter PLAX 4.9 cm 4.2 - 5.9 / 3.9 - 5.3 cm LV Systolic Diameter PLAX 2.9 cm IVS Diastolic Thickness 1.6 cm 0.6 - 1.0 / 0.6 - 0.9 cm LVPW Diastolic Thickness 1.5 cm 0.6 - 1.0 / 0.6 - 0.9 cm LV Relative Wall Thickness 0.6 RV Internal Dim ED PLAX 2.9 cm LA Volume 69.6 cm??? 18 - 58 / 22 - 52 cm??? M-MODE Aortic Root Diameter MM 3.5 cm LA Systolic Diameter MM 4.8 cm LA Ao Ratio MM 1.4 AV Cusp Separation MM 1.4 cm DOPPLER AV Peak Velocity 282.2 cm/s AV Peak Gradient 31.8 mmHg AV Mean Velocity 196.9 cm/s AV Mean Gradient 17.7 mmHg AV Velocity Time Integral 68.5 cm LVOT Peak Velocity 76.1 cm/s LVOT Peak Gradient 2.3 mmHg MV Area PHT 2.1 cm??? Mitral E Point Velocity 106.2 cm/s Mitral A Point Velocity 129.9 cm/s Mitral E to A Ratio 0.8 MV Deceleration Time 355.9 ms FINDINGS Left Ventricle Moderately increased septal wall thickness. Normal left ventricular systolic function with no obvious regional wall motion abnormalities. Left ventricular ejection fraction is estimated at 55-60 %. Right Ventricle Normal right ventricular size and function. Right ventricular systolic pressure within normal limits. Right Atrium Normal right atrial size. Left Atrium Moderately increased left atrial volume. Mildly increased left atrial area. Mitral Valve Structurally normal mitral valve. Mild mitral regurgitation. Aortic Valve Mild aortic stenosis with a peak gradient of 27 mmHg and a mean gradient of 18 mmHg. Tricuspid Valve Mild tricuspid regurgitation. Pulmonic Valve Trace pulmonic regurgitation. Pericardium No pericardial effusion. Aorta Normal size aortic root and proximal ascending aorta. CONCLUSIONS Technically difficult study for interpretation Normal left ventricular dimension and systolic function Poorly visualized intracardiac valves Aortic sclerosis with aortic stenosis. The severity was difficult to assess. The aortic stenosis appears to be at least moderate Previewed by: Dr. Hang Bennett MD (Electronically Signed) Final Date: 26 December 2021 09:41
[2021-12-26] MEDS: ATORVASTATIN 40 MG TAB PO SCH (09:55)
[2021-12-26] MEDS: HEPARIN SODIUM,PORCINE/PF 5,000 UNIT/0.5 ML SYRINGE SQ SCH (09:55)
[2021-12-26] MEDS: lisinopriL 20 MG TAB PO SCH (09:55)
--- NOTE | 2021-12-26 10:25 | P.CRDCN ---
History of Present Illness Consult date: 12/25/21 History of present illness: HISTORY OF PRESENT ILLNESS: This is a 81-year-old male with a past medical history significant for mild coronary artery disease, hypertension, nonsustained ventricular tachycardia, syncope, hypothyroidism, and history of loop recorder insertion. Patient follows in the office with Dr. Ga. We have been asked to see the patient in consultation for chest pain. Patient examined at the bedside. Patient states yesterday he noticed his lower extremities felt weak. He reports he be and to have some chest pain which she described as more of a pressure-like sensation. He states as he got up and tried to move around his chest pressure went away although his legs continued to feel weak. He denied any shortness of breath. Denied any nausea or vomiting. Denied any radiation of the pain. * EKG reveals sinus mechanism with PACs * Chest xray interstitial density appears largely chronic. Redemonstrated asymmetric elevation right hemidiaphragm. * Laboratory data: WBC 3.2. Hemoglobin 15.1. Platelet count 163. Sodium 129. Potassium 3.7. BUN 8. Creatinine 0.81. Troponin negative 3 * Current home cardiac medications include hydrochlorothiazide 25 mg daily, enalapril 20 g daily, and Lipitor 40 mg daily * Most recent echocardiogram obtained in August 2020 revealed ejection fraction 55-60%, moderate LVH, [id number] aortic stenosis, mild mitral regurgitation, mild mitral stenosis, mild tricuspid regurgitation. * Cardiac catheterization history: September 2019 revealing mild diffuse coronary artery disease. Mildly elevated end diastolic pressure. Medical management was recommended. REVIEW OF SYSTEMS: At the time of my exam: CONSTITUTIONAL: Denies fever or chills. HEENT: Denies blurred vision, vision changes, or eye pain. Denies hemoptysis CARDIOVASCULAR: Denies chest pain. Denies orthopnea. Denies PND. Denies palpitations RESPIRATORY: Denies shortness of breath. GASTROINTESTINAL: Denies abdominal pain. Denies nausea or vomiting. HEMATOLOGIC: Denies bleeding disorders. GENITOURINARY: Denies any blood in urine. SKIN: Denies pruitis. Denies rash. PHYSICAL EXAM: VITAL SIGNS: Reviewed. GENERAL: Well-developed in no acute distress. HEENT: Head is normocephalic. Pupils are equal, round. Sclerae anicteric. Mucous membranes of the mouth are moist. Neck supple. No JVD or thyromegaly LUNGS: Respirations even and unlabored. Lungs essentially clear to auscultation bilaterally. HEART: Regular rate and rhythm. S1 and S2 heard. Systolic murmur noted ABDOMEN: Soft. Nondistended. Nontender. EXTREMITIES: Normal range of motion. No clubbing or cyanosis. Peripheral pulses intact. No lower extremity edema NEUROLOGIC: Awake and alert. Oriented x 3. ASSESSMENT: Chest pain Mild diffuse coronary artery disease, per cardiac catheterization in 2019 Valvular heart disease History of nonsustained ventricular tachycardia History of syncope with previous loop recorder insertion Hypertension Hyperlipidemia Hypothyroidism PLAN: An acute coronary event has been ruled out Resume home cardiac medications Patient to undergo Lexiscan stress test to assess for ischemia If negative, the patient may be discharged home today from a cardiac standpoint Nurse practitioner note has been reviewed by physician. Signing provider agrees with the documented findings, assessment, and plan of care. Past Medical History Past Medical History: Hyperlipidemia, Hypertension History of Any Multi-Drug Resistant Organisms: None Reported Additional Past Surgical History / Comment(s): varicose vein surgery, cyst removal from hand Past Anesthesia/Blood Transfusion Reactions: No Reported Reaction Past Psychological History: No Psychological Hx Reported Smoking Status: Former smoker Past Alcohol Use History: Daily Past Drug Use History: None Reported - Past Family History Mother Family Medical History: No Reported History Medications and Allergies Home Medications Medication Instructions Recorded Confirmed Type Atorvastatin [Lipitor] 40 mg PO DAILY 10/18/19 12/25/21 History Enalapril [Vasotec] 20 mg PO DAILY 10/18/19 12/25/21 History Krill Oil 300mg 1 tab PO DAILY 10/18/19 12/25/21 History Levothyroxine Sodium [Synthroid] 100 mcg PO DAILY 10/18/19 12/25/21 History Serrapeptase 120,000 Iu 120,000 unit PO DAILY 12/25/21 12/25/21 History Vitamin B Complex 1 cap PO DAILY 12/25/21 12/25/21 History carvediloL [Coreg] 3.125 mg PO BID 12/25/21 12/25/21 History hydroCHLOROthiazide [Hydrodiuril] 25 mg PO DAILY 12/25/21 12/25/21 History Allergies Allergy/AdvReac Type Severity Reaction Status Date / Time Penicillins Allergy Swelling Verified 12/25/21 11:06 Physical Exam Vitals: Vital Signs Temp Pulse Pulse Resp BP Pulse Ox 12/25/21 11:05 98.4 F 79 18 141/87 98 12/25/21 09:54 78 18 128/65 99 12/25/21 08:24 69 18 133/72 96 12/25/21 08:15 67 12/25/21 07:33 97.9 F 70 18 160/80 100 Intake and Output 12/24/21 12/25/21 12/25/21 22:59 06:59 14:59 Other: Weight 104.326 kg Results 12/25/21 08:24 12/26/21 05:11 Cardiac Enzymes 12/25/21 12/25/21 Range/Units 08:24 08:24 AST 28 (17-59) U/L Troponin I <0.012 (0.000-0.034) ng/mL Coagulation 12/25/21 Range/Units 08:24 PT 10.8 (9.0-12.0) sec APTT 25.3 (22.0-30.0) sec CBC 12/25/21 Range/Units 08:24 WBC 3.2 L (3.8-10.6) k/uL RBC 4.67 (4.30-5.90) m/uL Hgb 15.1 (13.0-17.5) gm/dL Hct 45.5 (39.0-53.0) % Plt Count 163 (150-450) k/uL Comprehensive Metabolic Panel 12/25/21 Range/Units 08:24 Sodium 129 L (137-145) mmol/L Potassium 3.7 (3.5-5.1) mmol/L Chloride 94 L (98-107) mmol/L Carbon Dioxide 24 (22-30) mmol/L BUN 8 L (9-20) mg/dL Creatinine 0.81 (0.66-1.25) mg/dL Glucose 119 H (74-99) mg/dL Calcium 9.1 (8.4-10.2) mg/dL AST 28 (17-59) U/L ALT 24 (4-49) U/L Alkaline Phosphatase 72 (38-126) U/L Total Protein 6.1 L (6.3-8.2) g/dL Albumin 3.9 (3.5-5.0) g/dL Current Medications Generic Name Dose Route Start Last Admin Trade Name Freq PRN Reason Stop Dose Admin Aspirin 81 mg 12/26/21 09:00 Aspirin 81 Mg PO DAILY ELOY Nitroglycerin 0.4 mg 12/25/21 09:40 Nitroglycerin Sl Tabs 0.4 Mg Tab SUBLINGUAL Q5M PRN Chest Pain Intake and Output 12/24/21 12/25/21 12/25/21 22:59 06:59 14:59 Other: Weight 104.326 kg Patient Weight 12/26/21 06:59 Weight 104.326 kg 12/25/21 08:24 12/25/21 08:24
--- NOTE | 2021-12-26 11:43 | CA ---
Lexiscan Nuclear Stress Test Report Name: Baljinder Cortes Exam Date: 12/26/2021 10:49 Exam Location: [facility] Ht (in): 70 Wt (lb): 230 BSA: 2.22 Ordering Phys: Marjorie Aviles Referring Phys: BETO,, Technologist: NIKHIL,, Age: 81 Gender: M : 1940 Procedure CPT: Indications: Reflex order-Stress test ICD-10 Codes: Patient History: Chest Pain Medications: Meds past 24 hrs: Pretest Chest Pain: STRESS TEST Lexiscan Protocol Exercise Duration (min:sec): 02:[address] Depressions (mm): Angina Score: Ma Score: Resting HR (bpm): 67 Peak HR (bpm): 89 Resting BP (mmHg): 113 / 67 Peak BP (mmHg): 114 / 59 MPHR: 140 Target HR: 119 % MPHR: 64 METS: 1.0 Total Dose: Peak Dose: Atropine: Double Product: 82659 BP Response: Stress Termination: Infusion complete Stress Symptoms: No chest pain or symptoms Stress Summary: ECG ANALYSIS Resting ECG: Stress ECG: CONCLUSIONS Nondiagnostic electrocardiogram stress testing in response to exercise Please follow-up on the Cardiolite portion on a separate report Dr. Hang Bennett MD (Electronically Signed) Final Date: 26 December 2021 11:42
--- NOTE | 2021-12-26 12:32 | NM ---
EXAMINATION TYPE: NM stress lexiscan cardiolite DATE OF EXAM: 12/26/2021 COMPARISON: NONE HISTORY: Chest pain TECHNIQUE: After the intravenous administration of 10.0 mCi Tc 99m Sestamibi - Cardiolite resting SP ECT images acquired 45 minutes post injection. At peak stress 25.1 mCi Tc 99m Sestamibi - Stress images obtained 35 minutes post injection The patient was stressed with 0.4mg Lexiscan. FINDINGS: No fixed or reversible perfusion defects SPECT imaging are evident. Polar maps suggests some stress-i nduced changes at the inferior septal wall not identified on SPECT imaging. Wall motion is normal Ejection fraction is calculated to be 60 %. IMPRESSION: 1. No definite fixed or reversible perfusion defects identified.
[2021-12-26 13:36] VITALS: BP 129/62; PULSE 59; RESP 14; TEMP 98
--- NOTE | 2021-12-26 15:29 | P.DS ---
Providers Date of admission: 12/25/21 10:00 Expected date of discharge: 12/26/21 Attending physician: Collins Green MD Primary care physician: Stated None Hospital Course: Discharge Diagnosis: Acute chest pain Mildly symptomatic hyponatremia History of Nonobstructive CAD Hypertension Hyperthyroidism Hospital Course: 81-year-old male with history of nonobstructive CAD, hypertension, hypothyroidism, dyslipidemia presented with complaints of chest pain. Chest pain had resolved by the time he got to the hospital. His labs were significant for sodium of 129 which improved at discharge. His troponins were negative 3. Chest x-ray demonstrated right hemidiaphragm. His EKG showed first-degree AV block with sinus rhythm. Cardiology was consulted. Echocardiogram showed LVEF of 55-60%. Saray scan stress test showed no definite fixed or reversible perfusion defects. Patient will have a follow-up with cardiology in 1 week. Patient seen and examined at bedside. Vital signs reviewed and stable. General: nontoxic, no distress, appears at stated age Derm: warm, dry Head: atraumatic, normocephalic, symmetric Eyes: EOMI, no lid lag, anicteric sclera Mouth: no lip lesion, mucus membranes moist Cardiovascular: S1S2 reg, no murmur Lungs: CTA bilateral, no rhonchi, no rales , no accessory muscle use Abdominal: soft, nontender to palpation, no guarding, no appreciable organomegaly Ext: no gross muscle atrophy, no edema, no contractures Neuro: CN II-XI grossly intact, no focal neuro deficits Psych: Alert, oriented, appropriate affect A total of 33 minutes of time were spent preparing this complex discharge summary. Patient was discharged on 12/26/21 at 13:00. Patient Condition at Discharge: Stable Plan - Discharge Summary Discharge Rx Participant: No New Discharge Prescriptions: New Aspirin 81 mg PO DAILY #30 tab Continue Levothyroxine Sodium [Synthroid] 100 mcg PO DAILY Enalapril [Vasotec] 20 mg PO DAILY Atorvastatin [Lipitor] 40 mg PO DAILY Krill Oil 300mg 1 tab PO DAILY Vitamin B Complex 1 cap PO DAILY hydroCHLOROthiazide [Hydrodiuril] 25 mg PO DAILY Serrapeptase 120,000 Iu 120,000 unit PO DAILY carvediloL [Coreg] 3.125 mg PO BID Discharge Medication List Atorvastatin [Lipitor] 40 mg PO DAILY 10/18/19 [History] Enalapril [Vasotec] 20 mg PO DAILY 10/18/19 [History] Krill Oil 300mg 1 tab PO DAILY 10/18/19 [History] Levothyroxine Sodium [Synthroid] 100 mcg PO DAILY 10/18/19 [History] Serrapeptase 120,000 Iu 120,000 unit PO DAILY 12/25/21 [History] Vitamin B Complex 1 cap PO DAILY 12/25/21 [History] carvediloL [Coreg] 3.125 mg PO BID 12/25/21 [History] hydroCHLOROthiazide [Hydrodiuril] 25 mg PO DAILY 12/25/21 [History] Aspirin 81 mg PO DAILY #30 tab 12/26/21 [Rx] Follow up Appointment(s)/Referral(s): Juan Luis Ga MD [STAFF PHYSICIAN] - 01/03/22 11:45 am None,Stated [Primary Care Provider] - 1-2 days Patient Instructions/Handouts: Chest Pain (DC) Activity/Diet/Wound Care/Special Instructions: Follow up with Cardiology in 1 week. Discharge Disposition: HOME SELF-CARE
== END 2021-12-26 14:40 | disposition home or self-care (01) ==
LOC: EC 07:30 → 6NMEDSUR 10:00
PROVIDERS: ADMIT Student in an Organized Health Care Education/Training Program; ATTEND Student in an Organized Health Care Education/Training Program
DX: R07.89 Other chest pain (principal); E87.1 Hypo-osmolality and hyponatremia; I47.2 Ventricular tachycardia; I49.1 Atrial premature depolarization; I10 Essential (primary) hypertension; E78.5 Hyperlipidemia, unspecified; I44.0 Atrioventricular block, first degree; I25.10 Atherosclerotic heart disease of native coronary artery without angina pectoris; I08.3 Combined rheumatic disorders of mitral, aortic and tricuspid valves; E03.9 Hypothyroidism, unspecified; Z79.82 Long term (current) use of aspirin; Z79.890 Hormone replacement therapy; Z79.899 Other long term (current) drug therapy; Z88.0 Allergy status to penicillin; Z87.891 Personal history of nicotine dependence; Z98.890 Other specified postprocedural states; Z95.818 Presence of other cardiac implants and grafts
CPT/HCPCS: 96372; 99285; 36415; 93005; 93017; 83880; 80061; 80053; 80048; 84443; 83735; 84484; 85025; 85610; 85730; 71046; 78452; G0378 ×2; C8929; A9500; J2785; Q9950; J1644; 93306

== ENCOUNTER 2022-02-16 08:19 | Observation (INO) | payer MEDICARE ==
[2022-02-16] MEDS ORDERED: KETOROLAC 15 MG/ML 1 ML VIAL IVP STA (08:28)
--- NOTE | 2022-02-16 08:32 | ED ---
General Adult HPI - General Chief complaint: Syncope Stated complaint: syncope Time Seen by Provider: 02/16/22 08:19 Source: patient, EMS, RN notes reviewed, old records reviewed Mode of arrival: EMS Limitations: no limitations - History of Present Illness Initial comments: This is an 81-year-old male who had a syncopal episode at home and on his way do wn to the ground hit his lower thoracic back on the collar. Patient denies hitting his head or neck. Patient denies any headache patient denies any neck pain patient denies any numbness weakness. Patient does not remember prior to the fall if he was lightheaded patient denies taking lightheaded currently. Patient denies any chest pain difficulty breathing shortness breath per patient palpitations. Patient states similar episode happened in 2019 has a loop recorder in place. Patient's only complaint currently is noted to lower thoracic back pain from hitting the counter. Patient denies any extremity injury. Patient denies any abdominal pain. Patient was able to ambulate at the scene. Patient states he has had no recent fever chills or cough. Patient said no nausea vomiting or diarrhea. - Related Data Home Medications Medication Instructions Recorded Confirmed Atorvastatin [Lipitor] 40 mg PO DAILY 10/18/19 12/25/21 Enalapril [Vasotec] 20 mg PO DAILY 10/18/19 12/25/21 Krill Oil 300mg 1 tab PO DAILY 10/18/19 12/25/21 Levothyroxine Sodium [Synthroid] 100 mcg PO DAILY 10/18/19 12/25/21 Serrapeptase 120,000 Iu 120,000 unit PO DAILY 12/25/21 12/25/21 Vitamin B Complex 1 cap PO DAILY 12/25/21 12/25/21 carvediloL [Coreg] 3.125 mg PO BID 12/25/21 12/25/21 hydroCHLOROthiazide [Hydrodiuril] 25 mg PO DAILY 12/25/21 12/25/21 Previous Rx's Medication Instructions Recorded Aspirin 81 mg PO DAILY #30 tab 12/26/21 Allergies Allergy/AdvReac Type Severity Reaction Status Date / Time Penicillins Allergy Swelling Verified 02/16/22 08:29 Review of Systems ROS Statement: Those systems with pertinent positive or pertinent negative responses have been documented in the HPI. ROS Other: All systems not noted in ROS Statement are negative. Past Medical History Past Medical History: Hyperlipidemia, Hypertension History of Any Multi-Drug Resistant Organisms: None Reported Additional Past Surgical History / Comment(s): varicose vein surgery, cyst removal from hand Past Anesthesia/Blood Transfusion Reactions: No Reported Reaction Past Psychological History: No Psychological Hx Reported Smoking Status: Former smoker Past Alcohol Use History: Daily Past Drug Use History: None Reported - Past Family History Mother Family Medical History: No Reported History General Exam - General Exam Comments Initial Comments: GENERAL: Patient is well-developed and well-nourished. Patient is nontoxic and well- hydrated and is in mild distress. ENT: Neck is soft and supple. No significant lymphadenopathy is noted. Oropharynx is clear. Moist mucous membranes. Neck has full range of motion without eliciting any pain. Patient notes pain on palpation of the neck on movement. EYES: The sclera were anicteric and conjunctiva were pink and moist. Extraocular move ments were intact and pupils were equal round and reactive to light. Eyelids were unremarkable. PULMONARY: Unlabored respirations. Good breath sounds bilaterally. No audible rales rhonchi or wheezing was noted. CARDIOVASCULAR: There is a regular rate and rhythm without any murmurs gallops or rubs. ABDOMEN: Soft and nontender with normal bowel sounds. SKIN: Skin is clear with no lesions or rashes and otherwise unremarkable. NEUROLOGIC: Patient is alert and oriented x3. Cranial nerves II through XII are grossly intact. Motor and sensory are also intact. Normal speech, volume and content. Symmetrical smile. MUSCULOSKELETAL: Normal extremities with adequate strength and full range of motion. Patient had mild pain in the mid thoracic to lower thoracic region of his back. LYMPHATICS: No significant lymphadenopathy is noted PSYCHIATRIC: Normal psychiatric evaluation. Limitations: no limitations Course Vital Signs 02/16/22 08:22 Temperature 98.5 F Pulse Rate 72 Respiratory 18 Rate Blood Pressure 144/82 O2 Sat by Pulse 99 Oximetry Medical Decision Making - Medical Decision Making I interpreted EKG. EKG shows sinus rhythm with occasional PACs at a rate of 73 bpm OR interval is 160 QRS is 114 QT interval 420 QTC is 445. Patient's EKG shows no ST segment elevation or depression. I interpreted the chest x-ray that showed no acute abnormality there is a elevated right diaphragm which was seen her previous x-ray. I interpreted the thoracic spine x-ray showed no acute abnormality. I spoke with sound physician's agreed to admit the patient admitted the patient I wrote admitting orders. I consult to cardiology. - Lab Data Result diagrams: 02/16/22 08:34 02/16/22 08:34 Lab Results 02/16/22 02/16/22 02/16/22 Range/Units 08:34 08:34 08:34 WBC 2.9 L (3.8-10.6) k/uL RBC 4.86 (4.30-5.90) m/uL Hgb 16.2 (13.0-17.5) gm/dL Hct 47.4 (39.0-53.0) % MCV 97.4 (80.0-100.0) fL MCH 33.3 (25.0-35.0) pg MCHC 34.2 (31.0-37.0) g/dL RDW 13.0 (11.5-15.5) % Plt Count 154 (150-450) k/uL MPV 9.6 Neutrophils % 67 % Lymphocytes % 21 % Monocytes % 7 % Eosinophils % 2 % Basophils % 1 % Neutrophils # 2.0 (1.3-7.7) k/uL Lymphocytes # 0.6 L (1.0-4.8) k/uL Monocytes # 0.2 (0-1.0) k/uL Eosinophils # 0.1 (0-0.7) k/uL Basophils # 0.0 (0-0.2) k/uL PT 10.8 (9.0-12.0) sec INR 1.0 (<1.2) APTT 24.0 (22.0-30.0) sec Sodium 133 L (137-145) mmol/L Potassium 4.3 (3.5-5.1) mmol/L Chloride 97 L (98-107) mmol/L Carbon Dioxide 29 (22-30) mmol/L Anion Gap 7 mmol/L BUN 10 (9-20) mg/dL Creatinine 0.90 (0.66-1.25) mg/dL Est GFR (CKD-EPI)AfAm >90 (>60 ml/min/1.73 sqM) Est GFR (CKD-EPI)NonAf 80 (>60 ml/min/1.73 sqM) Glucose 125 H (74-99) mg/dL Calcium 9.3 (8.4-10.2) mg/dL Magnesium 1.9 (1.6-2.3) mg/dL Total Bilirubin 1.2 (0.2-1.3) mg/dL AST 32 (17-59) U/L ALT 29 (4-49) U/L Alkaline Phosphatase 100 (38-126) U/L Troponin I (0.000-0.034) ng/mL Total Protein 7.6 (6.3-8.2) g/dL Albumin 4.8 (3.5-5.0) g/dL 02/16/22 Range/Units 08:34 WBC (3.8-10.6) k/uL RBC (4.30-5.90) m/uL Hgb (13.0-17.5) gm/dL Hct (39.0-53.0) % MCV (80.0-100.0) fL MCH (25.0-35.0) pg MCHC (31.0-37.0) g/dL RDW (11.5-15.5) % Plt Count (150-450) k/uL MPV Neutrophils % % Lymphocytes % % Monocytes % % Eosinophils % % Basophils % % Neutrophils # (1.3-7.7) k/uL Lymphocytes # (1.0-4.8) k/uL Monocytes # (0-1.0) k/uL Eosinophils # (0-0.7) k/uL Basophils # (0-0.2) k/uL PT (9.0-12.0) sec INR (<1.2) APTT (22.0-30.0) sec Sodium (137-145) mmol/L Potassium (3.5-5.1) mmol/L Chloride (98-107) mmol/L Carbon Dioxide (22-30) mmol/L Anion Gap mmol/L BUN (9-20) mg/dL Creatinine (0.66-1.25) mg/dL Est GFR (CKD-EPI)AfAm (>60 ml/min/1.73 sqM) Est GFR (CKD-EPI)NonAf (>60 ml/min/1.73 sqM) Glucose (74-99) mg/dL Calcium (8.4-10.2) mg/dL Magnesium (1.6-2.3) mg/dL Total Bilirubin (0.2-1.3) mg/dL AST (17-59) U/L ALT (4-49) U/L Alkaline Phosphatase (38-126) U/L Troponin I <0.012 (0.000-0.034) ng/mL Total Protein (6.3-8.2) g/dL Albumin (3.5-5.0) g/dL Disposition Clinical Impression: Syncope and collapse, History of ventricular tachycardia Disposition: ADMITTED IP TO THIS HOSP Referrals: Carlitos Leblanc, PAC [Primary Care Provider] - 1-2 days Time of Disposition: 10:13
[2022-02-16 08:59] LABS: Basophils % (A) 1 %; Eosinophils # (A) 0.1 k/uL (0-0.7); Eosinophils % (A) 2 %; HCT 47.4 % (39.0-53.0); HGB 16.2 gm/dL (13.0-17.5); Lymphocytes # (A) 0.6 k/uL (1.0-4.8); Lymphocytes % (A) 21 %; MCH 33.3 pg (25.0-35.0); MCHC 34.2 g/dL (31.0-37.0); MCV 97.4 fL (80.0-100.0); Mean Platelet Volume 9.6; Monocytes # (A) 0.2 k/uL (0-1.0); Monocytes % (A) 7 %; Neutrophils % (A) 67 %; Platelet Count 154 k/uL (150-450); RBC 4.86 m/uL (4.30-5.90); WBC 2.9 k/uL (3.8-10.6)
[2022-02-16 09:08] LABS: Prothrombin Time 10.8 sec (9.0-12.0)
--- NOTE | 2022-02-16 09:11 | XR ---
EXAMINATION TYPE: XR chest 2V DATE OF EXAM: 02/16/2022 COMPARISON: 12/25/2021 HISTORY: 81-year-old male with chest pain, syncopal episode with fall. TECHNIQUE: AP and lateral views FINDINGS: Heart normal size. Aorta and pulmonary vasculature within normal limits. Continued asymmetric elevati on right hemidiaphragm; on the lateral view, this seems to correspond to a large area of diaphragmati c eventration. Mild interstitial prominence appears largely chronic. No ian consolidation or pleura l effusion. Loop recorder device on the left. IMPRESSION: Similar prominent eventration right hemidiaphragm. Chronic changes without definite acute process.
--- NOTE | 2022-02-16 09:14 | XR ---
EXAMINATION TYPE: XR thoracic spine 3 views complete DATE OF EXAM: 02/16/2022 Comparison: None Clinical History: 81-year-old male with pain after fall, Trauma Findings: Underpenetration on the frontal view for assessment of the mid to lower thoracic spine. There is exte nsive dish and bridging endplate spondylosis throughout the thoracic spine. No ian malalignment is seen. Accentuated mid thoracic kyphosis. Trace grade 1 retrolisthesis L2-L3 similar to the 11/06/2021 C T. Moderate degenerative disc disease visualized thoracolumbar junction and upper lumbar spine. Osteo penia. Impression: Osteopenia and extensive changes of DISH with a fixed accentuated midthoracic kyphosis. No malalignme nt is seen in the thoracic spine. Degenerative grade 1 retrolisthesis at L2-L3 similar to the patient 's 11/16/2021 CT. Moderate degenerative disc disease in the thoracal lumbar junction and visualized up per lumbar spine.
[2022-02-16 09:16] LABS: ALT 29 U/L (4-49); AST 32 U/L (17-59); African American GFR (CKD) >90 (>60 ml/min/1.73 sqM); Albumin 4.8 g/dL (3.5-5.0); Alkaline Phosphatase 100 U/L (38-126); Anion Gap 7 mmol/L; Blood Urea Nitrogen 10 mg/dL (9-20); Calcium 9.3 mg/dL (8.4-10.2); Carbon Dioxide 29 mmol/L (22-30); Chloride 97 mmol/L (98-107); Glucose 125 mg/dL (74-99); Magnesium 1.9 mg/dL (1.6-2.3); Non-African American GFR(CKD) 80 (>60 ml/min/1.73 sqM); Potassium 4.3 mmol/L (3.5-5.1); Sodium 133 mmol/L (137-145); Total Bilirubin 1.2 mg/dL (0.2-1.3); Total Protein 7.6 g/dL (6.3-8.2)
[2022-02-16] MEDS ORDERED: NITROGLYCERIN SL TABS 0.4 MG TAB SUBLINGUAL PRN (10:35)
--- NOTE | 2022-02-16 13:11 | P.HPIM ---
History of Present Illness H&P Date: 02/16/22 History of Presenting Illness: Patient is a very pleasant 81-year-old female with a past medical history of hypertension, hyperlipidemia, and hypothyroidism. He presented to the emergency department status post fall with concerns of possible syncopal episode at home, patient's reports patient had a similar event in November and has a loop recorder placed secondary to history of concerns of having runs of V. tach. Per patient's , she was lying in bed and around 7:30 am she heard a very loud thud come from the kitchen and immediately yelled what fell and she reports after a minute she yelled again, "what fell" and got up to go into the kitchen and her finally answered back, "I did". She states upon entering the kitchen she found her sitting on the floor leaning up against the kitchen cupboards. She reports her could not remember what happened or how he fell or whether or not he lost consciousness and does not recall the events leading up to this fall. She reports that he has been experiencing some intermittent difficulties with his memory over the past couple months. However she reports this is typically with words, but today he does not remember fall or events leading up to the fall. Upon evaluation at bedside patient reports the last thing he remembers is a couple days ago. Patient's reports this is not patient's baseline normal. Patient however denies having any complaints at this time including headache, lightheadedness, dizziness, chest pain, palpitations, shortness of breath, or experiencing any numbn ess/tingling/weakness in his extremities. He underwent a full evaluation in the emergency department. EKG completed revealing sinus mechanism at 73 bpm with frequent PACs. Chest x-ray negative for acute cardiopulmonary process revealing prominent eventration of right hemidiaphragm similar to previous exam completed on 12/25/21. X-ray thoracic spine showing osteopenia and extensive changes with a fixed accentuated mid thoracic kyphosis and moderate degenerative disc disease in the thoracal lumbar junction and visualized upper lumbar spine. CBC revealing leukopenia with WBC count of 2.9 (likely chronic as WBC count on 12/25/21 was 3.2). Coagulation profile unremarkable. CMP revealing mild hyponatremia with sodium of 133, hypochloremia with chloride of 97 and stable blood glucose level of 125. Troponin negative at less than 0.012. Patient was admitted under our services with consultation to cardiology and neurology. Review of systems: Pertinent positives and negatives as discussed in HPI, a complete review of systems was performed and all other systems are negative. Physical exam: Vital signs reviewed and stable. General: Nontoxic, no distress and appears stated age. Derm: Skin warm and dry, normal coloration for ethnicity. Head: Atraumatic, normocephalic and symmetric. Eyes: EOMs intact, no lid lag, and anicteric sclera Mouth: no lip lesions, mucus membranes moist Cardiovascular: regular rate and rhythm with normal S1S2, soft systolic murmur, positive posterior tibial pulses bilaterally, and cap refill < 2 seconds. Lungs: Respirations even, regular, and unlabored on room air. Lungs CTA bilaterally, no rhonchi, no rales, no wheezing, and no accessory muscle usage. Abdominal: soft, nontender to palpation, no guarding, no appreciable organomegaly Ext: ROM intact. No gross muscle atrophy, no edema, no contractures Neuro: Speech clear, face symmetrical and CN II-XII grossly intact with no noted focal neuro deficits GCS 14. Psych: Alert and oriented to person and place but confused to time and situation. Assessment and Plan of Care: Syncopal episode, unclear if total loss of consciousness but patient is exhibiting memory loss Fall, injury/pain due to thoracic back -Telemetry monitoring -Cardiology consult, will need report/interrogation of loop recorder. -Neurology consulted, appreciate recommendations -CT head ordered revealing cerebral atrophy and chronic small vessel ischemia with progression of the white matter disease compared to previous exam completed 10/18/2019. -Neuro checks -Fall precautions Hypertension -Monitor vital signs and continue daily medication regimen with lisinopril and carvedilol. Hyperlipidemia -Continue daily medication regimen with atorvastatin. Hypothyroidism -Continue daily medication regimen with levothyroxine. The patient is admitted with an anticipated less than 2 midnight stay for evaluation of syncopal episode CODE STATUS: Full code DVT prophylaxis: Lovenox Discussed with: Patient, patient's , and RN Anticipated discharge date: 1-[address]: Home A total of 47 minutes was spent on the care of this complex patient more than 50% of the time was spent in counseling and care coordination. I reviewed the documentation as provided by the MARY above, who is the original author of this note. I agree with the documented assessment and plan, with the following changes: none Past Medical History Past Medical History: Hyperlipidemia, Hypertension History of Any Multi-Drug Resistant Organisms: None Reported Additional Past Surgical History / Comment(s): varicose vein surgery, cyst removal from hand Past Anesthesia/Blood Transfusion Reactions: No Reported Reaction Past Psychological History: No Psychological Hx Reported Smoking Status: Former smoker Past Alcohol Use History: Daily Past Drug Use History: None Reported - Past Family History Mother Family Medical History: No Reported History Medications and Allergies Home Medications Medication Instructions Recorded Confirmed Type Atorvastatin [Lipitor] 40 mg PO DAILY 10/18/19 02/16/22 History Enalapril [Vasotec] 20 mg PO DAILY 10/18/19 02/16/22 History Krill Oil 300mg 1 tab PO DAILY 10/18/19 02/16/22 History Levothyroxine Sodium [Synthroid] 100 mcg PO DAILY 10/18/19 02/16/22 History Serrapeptase 120,000 Iu 120,000 unit PO DAILY 12/25/21 02/16/22 History carvediloL [Coreg] 3.125 mg PO BID 12/25/21 02/16/22 History Allergies Allergy/AdvReac Type Severity Reaction Status Date / Time Penicillins Allergy Swelling & Verified 02/16/22 12:18 Rash & cold Sweats Physical Exam Osteopathic Statement: *. No significant issues noted on an osteopathic structural exam other than those noted in the History and Physical/Consult. Vitals: Vital Signs Temp Pulse Resp BP Pulse Ox 02/16/22 08:22 98.5 F 72 18 144/82 99 Intake and Output 02/15/22 02/16/22 02/16/22 22:59 06:59 14:59 Other: Weight 90.718 kg Results CBC & Chem 7: 02/16/22 08:34 02/16/22 08:34 Labs: Abnormal Lab Results - Last 24 Hours (Table) 02/16/22 02/16/22 Range/Units 08:34 08:34 WBC 2.9 L (3.8-10.6) k/uL Lymphocytes # 0.6 L (1.0-4.8) k/uL Sodium 133 L (137-145) mmol/L Chloride 97 L (98-107) mmol/L Glucose 125 H (74-99) mg/dL
--- NOTE | 2022-02-16 14:39 | CT ---
EXAMINATION TYPE: CT brain wo con DATE OF EXAM: 02/16/2022 COMPARISON: 10/18/2019 HISTORY: Syncope CT DLP: mGycm Automated exposure control for dose reduction was used. Images obtained of the brain with no contrast. There is cerebral cortical atrophy. There is no mass effect or midline shift. No sign of intracranial hemorrhage. There is hypodensity throughout the periventricular white matter. The calvarium is intac t. IMPRESSION: Cerebral atrophy and chronic small vessel ischemia. There is progression of the white matter disease compared to the old exam.
--- NOTE | 2022-02-16 15:11 | P.CNNES ---
History of Present Illness Consult date: 02/16/22 Requesting physician: Luis Ocampo Reason for Consult: syncope with memory loss History of Present Illness: This is an 81-year-old gentleman who presented emergency department because of a syncopal episode. Some of the history is obtained from medical records. According to the patient today he was in the kitchen and he stated that he tried to move him back and then he slipped and fell but denies any loss of consciousn ess urinary bowel incontinence or tongue bite. At times it was difficult to get a consistent history from the patient. But he stated that he was in the kitchen and he fell backward and hit the back of his middle back on the counter and fell to the ground. Per the ED physician, it seems that the patient had a fall episode at home and fell to the ground and hit his lower middle back. The patient did not hit his head or neck region. Denied any the lightheadedness. It seems that the patient had a similar episode that happened in 2019 and has a loop recorder place. According to the patient's nurse she stated that the patient has underlying confusion per his . It seems the patient has some bradycardia recently but cardiology did not feel was significant according to the nurse. Some of the workup during his hospital visit consisted of: Initial serum glucose is 125 sodium is 133 chloride is 97 otherwise restive Chemstrip panel is unremarkable Thoracic spine x-rays reported as osteopenia and extensive changes DISHwith a fixed attenuated midthoracic kyphosis. No malalignment is seen in the thoracic spine. Degenerative grade 1 retrolithiasis at the L2-L3 similar to the patient 11/16/2021 CT. Moderate degenerative disc disease in the thoracic lumbar junction and visualize upper lumbar spine. EKG is reported as incomplete right bundle branch block. Moderate voltage criteria. Possible septal myocardial infarction probably old. Review of Systems Review of system: The 12 point system was reviewed and apparent positive and negative per HPI. Past Medical History Past Medical History: Hyperlipidemia, Hypertension History of Any Multi-Drug Resistant Organisms: None Reported Additional Past Surgical History / Comment(s): varicose vein surgery, cyst removal from hand Past Anesthesia/Blood Transfusion Reactions: No Reported Reaction Past Psychological History: No Psychological Hx Reported Smoking Status: Former smoker Past Alcohol Use History: Daily Past Drug Use History: None Reported - Past Family History Mother Family Medical History: No Reported History Medications and Allergies Home Medications Medication Instructions Recorded Confirmed Type Atorvastatin [Lipitor] 40 mg PO DAILY 10/18/19 02/16/22 History Enalapril [Vasotec] 20 mg PO DAILY 10/18/19 02/16/22 History Krill Oil 300mg 1 tab PO DAILY 10/18/19 02/16/22 History Levothyroxine Sodium [Synthroid] 100 mcg PO DAILY 10/18/19 02/16/22 History Serrapeptase 120,000 Iu 120,000 unit PO DAILY 12/25/21 02/16/22 History carvediloL [Coreg] 3.125 mg PO BID 12/25/21 02/16/22 History Allergies Allergy/AdvReac Type Severity Reaction Status Date / Time Penicillins Allergy Swelling & Verified 02/16/22 12:18 Rash & cold Sweats Physical Examination - Vital Signs Vital Signs: Vital Signs Temp Pulse Resp BP Pulse Ox 02/16/22 08:22 98.5 F 72 18 144/82 99 Intake and Output 02/15/22 02/16/22 02/16/22 22:59 06:59 14:59 Other: Weight 90.718 kg GENERAL: The patient is sitting in a recliner chair and is not in acute distress. CHEST: The heart rate is regular rate rhythm. No murmurs to auscultation. LUNG: Clear to auscultation bilaterally no wheezing noted throughout. Not labored breathing. ABDOMEN/GI: Bowel sounds present in all 4 quadrants. No tenderness to palpation throughout. NEUROLOGICAL: Higher mental function: The patient is awake, alert, oriented to self, time. He stated he was in the hospital. He was able to name objects (pen, watch, glasses). Patient is following simple commands. No aphasia and no neglect. Cranial nerves: The pupils are round, equal and reactive to light. Visual montalvo are full to confrontation throughout. Extraocular movement is intact no nystagmus is noted. Facial sensation is normal to touch throughout. The facial strength is normal throughout. Hearing is mildly decreased bilaterally to hand rub. Tongue is midline and moved [id number] without any difficulty. No dysarthria is noted. Shoulder shrug is normal bilaterally. Motor: Gait is normal. The strength is 5 over 5 throughout. Normal tone and bulk. Cerebellum: Normal finger to nose bilaterally. Sensation: Sensation is normal to touch throughout. Reflexes (right/left): 1+ throughout. Plantars are mute bilaterally. Results - Laboratory Findings CBC and BMP: 02/16/22 08:34 02/16/22 08:34 Abnormal Lab Findings: Abnormal Labs 02/16/22 02/16/22 08:34 08:34 WBC 2.9 L Lymphocytes # 0.6 L Sodium 133 L Chloride 97 L Glucose 125 H Assessment and Plan Assessment: Syncopal episode/Fall of unknown etiology. Rule out seizure (but no urinary, bowel incontinence, tongue bite) vs cardiac in nature. History of prior syncope episode and has loop record Cognitive impairement reported by . Plan: A CT of the head is ordered by the primary team is pending I ordered an EEG and there is no tech available for today. I ordered TSH, folate, B12, ammonia. I also ordered lactic acid vein. Ordered CT lumbar because of fall to rule out fracture. Every 4 hours neuro checks On cardiac monitoring Cardiology team is consulted for the syncopal episode. Recommend interrogation of device. We'll defer the rest of the medical management to primary team. The plan is discussed with the patient's nurse. Will attempt to speak with . Thank you for the consultation. Time with Patient: Greater than 30
[2022-02-16 16:00] LABS: Lactic Acid, Venous 1.2 mmol/L (0.7-2.0)
[2022-02-16] MEDS: carvediloL 3.125 MG TAB PO SCH (16:41)
--- NOTE | 2022-02-16 17:55 | CT ---
EXAMINATION TYPE: CT lumbar spine wo con DATE OF EXAM: 02/16/2022 COMPARISON: 11/06/2021 HISTORY: low back pain following fall CT DLP: 1323.7 mGycm Automated exposure control for dose reduction was used. Images obtained from T12 through S3 vertebra with no contrast. The lumbar Normal alignment. There is moderate osteopenia. No significant compression deformity. There is mild s purring of the endplates. Abdominal aorta is atheromatous. There is no lumbar paraspinal mass. Sacroi liac joints are intact. IMPRESSION: Multilevel hypertrophic degenerative disc changes. Osteopenia. No acute fracture seen. No significant change compared to old exam. Atheromatous aorta.
--- NOTE | 2022-02-17 03:10 | CONS ---
CONSULTATION CHIEF COMPLAINT: Syncope. HISTORY OF PRESENT ILLNESS: This is an 81-year-old gentleman with history of hypertension, dyslipidemia, and hypothyroidism, who presented to hospital having had an episode of fall at home. It is unclear if the patient had a syncopal event, he just tripped and fell. It was transient, bumped his lower back, and came into the hospital. His cardiac enzymes have been negative. EKG reveals sinus rhythm with PACs. He has a loop recorder that has been tested. The slowest heart rate was about 38 beats per minute. He does not have any chest pain or difficulty in breathing. He had a recent stress test in December of 2021 that revealed normal myocardial perfusion function, had echocardiogram that showed normal LV systolic function with moderate aortic stenosis. FAMILY HISTORY: Negative for premature coronary artery disease. SOCIAL HISTORY: Negative for smoking issues or drug abuse. REVIEW OF SYSTEMS: A review of systems has been performed, pertinent are as documented. PHYSICAL EXAMINATION: GENERAL: Comfortable at rest. VITAL SIGNS: Stable. NECK: There is no jugular venous distention. Carotid upstroke is normal. There is no bruit. CHEST: Reveals good air entry bilaterally. HEART: Reveals first and second heart sounds. No gallop. Has an ejection systolic murmur in the aortic area. ABDOMEN: Soft. EXTREMITIES: Did not reveal any edema. Peripheral pulses are felt. LABORATORY DATA: Showed a potassium of 4.3, creatinine 0.9, hemoglobin is 16.2. ASSESSMENT: Syncope. Rule out cardiac causes. PLAN: We will watch him on telemetry to rule out significant bradycardia. We will see how his symptoms evolve over the next 24 hours. MANUELODL / AMADAN: [id number] /
[2022-02-17] MEDS: carvediloL 3.125 MG TAB PO SCH ×2 (06:30→18:37)
[2022-02-17] MEDS: LEVOTHYROXINE 100 MCG TAB PO SCH (06:30)
[2022-02-17] MEDS: lisinopriL 20 MG TAB PO SCH (08:21)
[2022-02-17] MEDS: ENOXAPARIN 40 MG/0.4 ML SYRINGE SQ SCH (08:21)
[2022-02-17] MEDS: ASPIRIN 325 MG TAB PO SCH (08:21)
[2022-02-17] MEDS: ATORVASTATIN 40 MG TAB PO SCH (08:22)
[2022-02-17] MEDS ORDERED: KETOROLAC 15 MG/ML 1 ML VIAL IVP STA (10:01)
--- NOTE | 2022-02-17 10:01 | P.PN ---
Subjective Progress Note Date: 02/17/22 History of Presenting Illness: Patient is a very pleasant 81-year-old female with a past medical history of hypertension, hyperlipidemia, and hypothyroidism. He presented to the emergency department status post fall with concerns of possible syncopal episode at home, patient's reports patient had a similar event in November and has a loop recorder placed secondary to history of concerns of having runs of V. tach. Per patient's , she was lying in bed and around 7:30 am she heard a very loud thud come from the kitchen and immediately yelled what fell and she reports af ter a minute she yelled again, "what fell" and got up to go into the kitchen and her finally answered back, "I did". She states upon entering the kitchen she found her sitting on the floor leaning up against the kitchen cupboards. She reports her could not remember what happened or how he fell or whether or not he lost consciousness and does not recall the events leading up to this fall. She reports that he has been experiencing some intermittent difficulties with his memory over the past couple months. However she reports this is typically with words, but today he does not remember fall or events leading up to the fall. Upon evaluation at bedside patient reports the last thing he remembers is a couple days ago. Patient's reports this is not patient's baseline normal. Patient however denies having any complaints at this time including headache, lightheadedness, dizziness, chest pain, palpitations, shortness of breath, or experiencing any numbness/ti ngling/weakness in his extremities. He underwent a full evaluation in the emergency department. EKG completed revealing sinus mechanism at 73 bpm with frequent PACs. Chest x-ray negative for acute cardiopulmonary process revealing prominent eventration of right hemidiaphragm similar to previous exam completed on 12/25/21. X-ray thoracic spine showing osteopenia and extensive changes with a fixed accentuated mid thoracic kyphosis and moderate degenerative disc disease in the thoracal lumbar junction and visualized upper lumbar spine. CBC revealing leukopenia with WBC count of 2.9 (likely chronic as WBC count on 12/25/21 was 3.2). Coagulation profile unremarkable. CMP revealing mild hypon atremia with sodium of 133, hypochloremia with chloride of 97 and stable blood glucose level of 125. Troponin negative at less than 0.012. Patient was admitted under our services with consultation to cardiology and neurology. Physical exam: Patient seen and fully evaluated at the bedside this morning. His mentation has improved and he is alert to person and place. Remains slightly confused to time and situation. Patient continues to have memory loss and does not recall how he got to the hospital or events leading up to how he got to the hospital. He has had episodes in which he has informed nursing staff that he fell in the kitchen hurting his back. Vital signs reviewed and stable. General: Nontoxic, no distress and appears stated age. Derm: Skin warm and dry, normal coloration for ethnicity. No bruising noted from fall and back pain. Head: Atraumatic, normocephalic and symmetric. Eyes: EOMs intact, no lid lag, and anicteric sclera Mouth: no lip lesions, mucus membranes moist Cardiovascular: regular rate and rhythm with normal S1S2, soft systolic murmur, positive posterior tibial pulses bilaterally, and cap refill < 2 seconds. Lungs: Respirations even, regular, and unlabored on room air. Lungs CTA bilaterally, no rhonchi, no rales, no wheezing, and no accessory muscle usage. Abdominal: soft, nontender to palpation, no guarding, no appreciable organomegaly Ext: ROM intact. No gross muscle atrophy, no edema, no contractures Neuro: Speech clear, face symmetrical and CN II-XII grossly intact with no noted focal neuro deficits GCS 14. Psych: Alert and oriented to person and place but confused to time and situation. Assessment and Plan of Care: Syncopal episode, unclear if total loss of consciousness but patient is exhibiting memory loss Fall, injury/pain back pain -Telemetry monitoring -Cardiology consult, will need report/interrogation of loop recorder. -Neurology hollowing, recommend EEG and repeat CT tomorrow morning. -CT head ordered revealing cerebral atrophy and chronic small vessel ischemia with progression of the white matter disease compared to previous exam completed 10/18/2019. -CT lumbar spine revealing multilevel hypertrophic degenerative changes, osteopenia negative for acute fracture or significant change compared to previous exam completed 11/06/21. -Neuro checks -Fall precautions Hypertension -Monitor vital signs and continue daily medication regimen with lisinopril and carvedilol. Hyperlipidemia -Continue daily medication regimen with atorvastatin. Hypothyroidism -Continue daily medication regimen with levothyroxine. The patient is admitted with an anticipated less than 2 midnight stay for evaluation of syncopal episode CODE STATUS: Full code DVT prophylaxis: Lovenox Discussed with: Patient, patient's , and RN Anticipated discharge date: 1-[address]: Home A total of 47 minutes was spent on the care of this complex patient more than 50% of the time was spent in counseling and care coordination. I reviewed the documentation as provided by the MARY above, who is the original author of this note. I agree with the documented assessment and plan, with the following changes: none Objective - Vital Signs Vital signs: Vital Signs Temp 98.1 F 02/17/22 07:00 Pulse 73 02/17/22 08:00 Resp 18 02/17/22 08:00 BP 150/78 02/17/22 07:00 Pulse Ox 96 02/17/22 07:00 FiO2 21 02/16/22 16:53 Intake & Output 02/16/22 02/17/22 02/17/22 18:59 06:59 18:59 Intake Total 240 Output Total 1 1 Balance 240 -1 -1 Weight 90.718 kg Intake: Oral 240 Output: Stool 1 1 Other: Voiding Method Toilet Toilet # Voids 1 2 0 - Labs CBC & Chem 7: 02/16/22 08:34 02/16/22 08:34 Labs: Abnormal Lab Results - Last 24 Hours (Table) 02/16/22 Range/Units 15:07 TSH 6.040 H (0.350-5.500) uIU/mL
[2022-02-17 10:16] LABS: Chol/HDL Ratio 1.94 Ratio; LDL Cholesterol,Calculated 64.7 mg/dL (0.0-131.0)
[2022-02-17] MEDS: LIDOCAINE 5% PATCH TOPICAL SCH (11:38)
--- NOTE | 2022-02-17 11:42 | P.PN ---
Subjective Progress Note Date: 02/17/22 The patient is seen and feels he is about the same. Per nurse he is answering thing appropriately except he stated the is 2019 and the month is December. Per the primary team, his stated he has memory loss but not significant and it seems yesterday when he was evaluated by primary team in the A.[facility]. he was significant confused that improved compared to prior. The basically was lying in bed around 7:30 in the morning and she heard a very loud the blood from the kitchen and immediately yelled what what fell and she reports after a minute she yelled again fell and got up into the kitch en and her finally answered the back I did. It seems that the patient was not jerk in of any extremities. She does not know if the patient has lost consciousness or not. Objective - Vital Signs Vital signs: Vital Signs Temp 98.1 F 02/17/22 07:00 Pulse 73 02/17/22 08:00 Resp 18 02/17/22 08:00 BP 150/78 02/17/22 07:00 Pulse Ox 96 02/17/22 07:00 FiO2 21 02/16/22 16:53 Intake & Output 02/16/22 02/17/22 02/17/22 18:59 06:59 18:59 Intake Total 240 Output Total 1 1 Balance 240 -1 -1 Weight 90.718 kg Intake: Oral 240 Output: Stool 1 1 Other: Voiding Method Toilet Toilet # Voids 1 2 0 - Exam GENERAL: The patient is sitting in a recliner chair and is not in acute distress. NEUROLOGICAL: Higher mental function: The patient is awake, alert, oriented to self and place. He stated the year is 2019 and the month is December. He was able to name objects (pen, watch, glasses). Patient is following simple commands. No aphasia and no neglect. Cranial nerves: The pupils are round, equal and reactive to light. Visual montalvo are full to confrontation throughout. Extraocular movement is intact no nystagmus is noted. Facial sensation is normal to touch throughout. The facial strength is normal throughout. Hearing is mildly decreased bilaterally to hand rub. Tongue is midline and moved [id number] without any difficulty. No dysarthria is noted. Shoulder shrug is normal bilaterally. Motor: Gait is normal. The strength is 5 over 5 throughout. Normal tone and bulk. Cerebellum: Normal finger to nose bilaterally. Sensation: Sensation is normal to touch throughout. Reflexes (right/left): 1+ throughout. Plantars are mute bilaterally. Some of the workup during his hospital visit consisted of: Initial serum glucose is 125 sodium is 133 chloride is 97 otherwise restive C hemstrip panel is unremarkable Plasma lactic acid vein is 1.2 Serum folate 16.7 Vitamin B12 is 405 TSH is 6.040 while the free T4 is 1.030 Ammonia is less than 9 CT brain is reported as cerebral atrophy and chronic small vessel ischemia. There is progression of the white matter disease compared to the old exam. I personally reviewed the CT of the head and there is no acute subacute ischemia there is no bleed there is no mass effect. CT lumbar spine is reported as multilevel hypertrophic degenerative disc changes. Osteopenia. No acute fracture seen. No significant change compared to old exam. Atheromatous aorta Thoracic spine x-rays reported as osteopenia and extensive changes DISHwith a fixed attenuated midthoracic kyphosis. No malalignment is seen in the thoracic spine. Degenerative grade 1 retrolithiasis at the L2-L3 similar to the patient 11/16/2021 CT. Moderate degenerative disc disease in the thoracic lumbar junction and visualize upper lumbar spine. EKG is reported as incomplete right bundle branch block. Moderate voltage criteria. Possible septal myocardial infarction probably old. - Labs CBC & Chem 7: 02/16/22 08:34 02/16/22 08:34 Labs: Abnormal Lab Results - Last 24 Hours (Table) 02/16/22 02/16/22 Range/Units 08:34 15:07 HDL Cholesterol 90.50 H (40.00-60.00) mg/dL TSH 6.040 H (0.350-5.500) uIU/mL Assessment and Plan Assessment: Syncopal episode/Fall of unknown etiology. Rule out seizure (but no urinary, bowel incontinence, tongue bite, no jerking of extremities. Lactic acid vein is normal.) vs cardiac in nature. History of prior syncope episode and has loop record Cognitive impairement reported by . Plan: Pending EEG which will be performed tomorrow. If worsening of his mentation recommend getting STAT EEG. Cannot perform MRI Brain since has loop record. So will try to obtain a repeat CT head tomorrow (w/ and w/o) to rule out any changes not seen on initial CT. Orthostatic vitals as ordered by the primary team Every 4 hours neuro checks On cardiac monitoring Cardiology team is consulted for the syncopal episode. Recommend interrogation of device. We'll defer the rest of the medical management to primary team. The plan is discussed with the patient's primary team. Time with Patient: Less than 30
--- NOTE | 2022-02-17 14:38 | PN ---
PROGRESS NOTE SUBJECTIVE: Baljinder is an 81-year-old gentleman, who is admitted to hospital following a syncopal event and he is to undergo an EEG tomorrow morning. He has not had any issues of tachy or jaz arrhythmias over the last 24 hours. He still does not have a good recollection of the event that brought him to hospital. OBJECTIVE: GENERAL: Comfortable at rest. VITAL SIGNS: Stable. CHEST: Reveals good air entry bilaterally. HEART: Reveals first and second heart sounds. No gallop. EXTREMITIES: Did not reveal any edema. LABS: Showed that the troponins are negative. Potassium is 4.3, creatinine is 0.9. Hemoglobin is 16.2. ASSESSMENT AND PLAN: Syncope, rule out cardiac causes. The patient is doing well. He has not had further episodes of syncope. We will continue to watch him on telemetry and will follow EEG results. CINDY / MADELIN: [id number] /
[2022-02-18] MEDS: LEVOTHYROXINE 100 MCG TAB PO SCH (06:31)
[2022-02-18] MEDS: carvediloL 3.125 MG TAB PO SCH (06:31)
--- NOTE | 2022-02-18 08:19 | CT ---
EXAMINATION TYPE: CT brain wo/w con CT DLP: 2180.8 mGycm, Automated exposure control for dose reduction was used. DATE OF EXAM: 02/18/2022 7:49 AM COMPARISON: 02/16/2022. CLINICAL INDICATION:Male, 81 years old with history of altered mental status, Fall, ambulating issues TECHNIQUE: Axial CT images of the brain were obtained with coronal and sagittal reformats created and reviewed. Contrast used:70 mL of Isovue 300 without and with IV Contrast, Oral contrast used: none. FINDINGS: Extra-axial spaces: No abnormal extra-axial fluid collections. Ventricular system: Dilatation in proportion to cerebral atrophy. Cerebral parenchyma: Cerebral atrophy. No acute intraparenchymal hemorrhage or mass effect. The burnham -white junction is well differentiated. No abnormal enhancement is seen after the administration of i ntravenous contrast. Cerebellum: Unremarkable. Mass effect: No evidence of midline shift. Intracranial vasculature: unremarkable Soft tissues: Normal. Calvarium/osseous structures: No depressed skull fracture. Paranasal sinuses and mastoid air cells: Clear. Visualized orbits: Orbital contents are intact. IMPRESSION: 1. No acute intracranial process and no evidence to suggest intracranial mass. 2. Nonspecific white matter changes, likely secondary to chronic small vessel ischemic disease.
[2022-02-18] MEDS: ENOXAPARIN 40 MG/0.4 ML SYRINGE SQ SCH (09:44)
[2022-02-18] MEDS: LIDOCAINE 5% PATCH TOPICAL SCH (09:44)
[2022-02-18] MEDS: lisinopriL 20 MG TAB PO SCH (09:45)
[2022-02-18] MEDS: ATORVASTATIN 40 MG TAB PO SCH (09:45)
[2022-02-18] MEDS: ASPIRIN 325 MG TAB PO SCH (09:45)
--- NOTE | 2022-02-18 11:18 | P.PN ---
Subjective Progress Note Date: 02/18/22 The patient is seen at bedside and feels he is doing well. Sitting at side of bedside. Objective - Vital Signs Vital signs: Vital Signs Temp 98.4 F 02/18/22 06:32 Pulse 87 02/18/22 06:32 Resp 19 02/18/22 06:32 BP 143/82 02/18/22 06:32 Pulse Ox 98 02/18/22 08:50 FiO2 21 02/18/22 08:50 Intake & Output 02/17/22 02/18/22 02/18/22 18:59 06:59 18:59 Intake Total 240 Output Total 1 Balance 239 Intake: Oral 240 Output: Stool 1 Other: Voiding Method Toilet Toilet # Voids 1 1 - Exam GENERAL: The patient is sitting side of bed and is not in acute distress. NEUROLOGICAL: Higher mental function: The patient is awake, alert, oriented to self, time and place. He was able to name objects (pen, watch, glasses). Patient is following simple commands. No aphasia and no neglect. Cranial nerves: The pupils are round, equal and reactive to light. Visual montalvo are full to confrontation throughout. Extraocular movement is intact no nystagmus is noted. Facial sensation is normal to touch throughout. The facial strength is normal throughout. Hearing is mildly decreased bilaterally to hand rub. Tongue is midline and moved [id number] without any difficulty. No dysarthria is noted. Shoulder shrug is normal bilaterally. Motor: Gait is normal. The strength is 5 over 5 throughout. Normal tone and bulk. Cerebellum: Normal finger to nose bilaterally. Sensation: Sensation is normal to touch throughout. Reflexes (right/left): 1+ throughout. Plantars are mute bilaterally. Some of the workup during his hospital visit consisted of: Plasma lactic acid vein is 1.2 Serum folate 16.7 Vitamin B12 is 405 Lipid panel: TG 104, Cholestrol 176, LDL 64 and HDL 90 Vitamin B12 405 Folate 16.7 TSH is 6.040 while the free T4 is 1.030 Ammonia is less than 9 CT brain is reported as cerebral atrophy and chronic small vessel ischemia. There is progression of the white matter disease compared to the old exam. I personally reviewed the CT of the head and there is no acute subacute ischemia there is no bleed there is no mass effect. CT Brain: No acute intracranial process and no evidence to suggest intracranial mass. Nonspecific white matter changes, likely secondary to chronic small vessel ischemic disease. CT lumbar spine is reported as multilevel hypertrophic degenerative disc changes. Osteopenia. No acute fracture seen. No significant change compared to old exam. Atheromatous aorta Thoracic spine x-rays reported as osteopenia and extensive changes DISHwith a fixed attenuated midthoracic kyphosis. No malalignment is seen in the thoracic spine. Degenerative grade 1 retrolithiasis at the L2-L3 similar to the patient 11/16/2021 CT. Moderate degenerative disc disease in the thoracic lumbar junction and visualize upper lumbar spine. EKG is reported as incomplete right bundle branch block. Moderate voltage criteria. Possible septal myocardial infarction probably old. - Labs CBC & Chem 7: 02/16/22 08:34 02/16/22 08:34 Assessment and Plan Assessment: Syncopal episode/Fall of unknown etiology. Rule out seizure (but no urinary, bowel incontinence, tongue bite, no jerking of extremities. Lactic acid vein is normal.) vs cardiac in nature. History of prior syncope episode and has loop record Cognitive impairement reported by . Plan: Pending EEG which will be performed today. Repeat CT head did not show any acute or subacute changes. Every 4 hours neuro checks On cardiac monitoring Cardiology team is consulted for the syncopal episode. Recommend interrogation of device. We'll defer the rest of the medical management to primary team. Recommend the patient to follow-up with neurologist as outpatient with 1-2 weeks. The plan is discussed with the patient's primary team. Time with Patient: Less than 30
--- NOTE | 2022-02-18 11:49 | P.PN ---
Subjective Progress Note Date: 02/18/22 HISTORY OF PRESENT ILLNESS: This is an 81-year-old male who is admitted to the hospital secondary to syncope. The patient follows in the office with Dr. Ga. Patient examined this morning at the bedside. Patient denies any chest pain or pressure. He denies any shortness of breath. Denies any dizziness or lightheadedness. Telemetry reveals sinus mechanism with a heart rate in the 80s. PHYSICAL EXAM: VITAL SIGNS: Reviewed. GENERAL: Well-developed in no acute distress. NECK: Supple. No JVD or thyromegaly LUNGS: Respirations even and unlabored. Lungs essentially clear to auscultation bilaterally. HEART: Regular rate and rhythm. S1 and S2 heard. EXTREMITIES: Normal range of motion. No clubbing or cyanosis. Peripheral pulses intact. No lower extremity edema ASSESSMENT: Syncope History of loop recorder insertion, November 2021 Mild aortic stenosis Hypertension Hyperlipidemia Hypothyroidism PLAN: No need to repeat echocardiogram as this was performed in November 2021 revealing normal LV systolic function with mild aortic stenosis It is noted patient underwent Lexiscan stress test in November 2019 which was negative for ischemia Continue current cardiac medications Continue telemetry monitoring to assess for any arrhythmias Interrogate loop recorder today EEG ordered per neurology Further recommendations pending patient's course Nurse practitioner note has been reviewed by physician. Signing provider agrees with the documented findings, assessment, and plan of care. Objective - Vital Signs Vital signs: Vital Signs Temp 98.4 F 02/18/22 06:32 Pulse 87 02/18/22 06:32 Resp 19 02/18/22 06:32 BP 143/82 02/18/22 06:32 Pulse Ox 98 02/18/22 08:50 FiO2 21 02/18/22 08:50 Intake & Output 02/17/22 02/18/22 02/18/22 18:59 06:59 18:59 Intake Total 240 Output Total 1 Balance 239 Intake: Oral 240 Output: Stool 1 Other: Voiding Method Toilet Toilet # Voids 1 1 - Labs CBC & Chem 7: 02/16/22 08:34 02/16/22 08:34
--- NOTE | 2022-02-18 14:06 | P.PN ---
Subjective Progress Note Date: 02/18/22 Hospital course: Patient is a very pleasant 81-year-old female with a past medical history of hypertension, hyperlipidemia, and hypothyroidism. He presented to the emergency department status post fall with concerns of possible syncopal episode at home, patient's reports patient had a similar event in November and has a loop recorder placed secondary to history of concerns of having runs of V. tach. Per patient's , she was lying in bed and around 7:30 am she heard a very loud thud come from the kitchen and immediately yelled what fell and she reports after a minute she yelled again, "what fell" and got up to go into the kitchen and her finally answered back, "I did". She states upon entering the kitchen she found her sitting on the floor leaning up against the kitchen cupboards. She reports her could not remember what happened or how he fell or whether or not he lost consciousness and does not recall the events leading up to this fall. She reports that he has been experiencing some intermittent difficulties with his memory over the past couple months. However she reports this is typically with words, but today he does not remember fall or events leading up to the fall. Upon evaluation at bedside patient reports the last thing he remembers is a couple days ago. Patient's reports this is not patient's baseline normal. Patient however denies having any complaints at this time including headache, lightheadedness, dizziness, chest pain, palpitations, shortness of breath, or experiencing any numbness/tingling/weakne ss in his extremities. He underwent a full evaluation in the emergency department. EKG completed revealing sinus mechanism at 73 bpm with frequent PACs. Chest x-ray negative for acute cardiopulmonary process revealing prominent eventration of right hemidiaphragm similar to previous exam completed on 12/25/21. X-ray thoracic spine showing osteopenia and extensive changes with a fixed accentuated mid thoracic kyphosis and moderate degenerative disc disease in the thoracal lumbar junction and visualized upper lumbar spine. CBC revealing leukopenia with WBC count of 2.9 (likely chronic as WBC count on 12/25/21 was 3.2). Coagulation profile unremarkable. CMP revealing mild hyponatremia with sodium of 133, hypochloremia with chloride of 97 and stable blood glucose level of 125. Troponin negative at less than 0.012. Patient was admitted under our services with consultation to cardiology and neurology. Physical exam: Patient seen and fully evaluated at the bedside this morning. His mentation is back to baseline alert and oriented to person, place, time, and situation. Patient does have episode of memory loss from time just prior to fall until arriving in the hospital. Patient reports he still does not recall falling or how he got to the hospital. He states he knows he got here by an ambulance only because both medical staff and his have told him this. EEG has been co mpleted and negative for any signs of epileptic activity. Initial plan was for discharge home today, however continue to await report from loop recorder. Vital signs reviewed and stable. General: Nontoxic, no distress and appears stated age. Derm: Skin warm and dry, normal coloration for ethnicity. No bruising noted from fall and back pain. Head: Atraumatic, normocephalic and symmetric. Eyes: EOMs intact, no lid lag, and anicteric sclera Mouth: no lip lesions, mucus membranes moist Cardiovascular: regular rate and rhythm with normal S1S2, soft systolic murmur, positive posterior tibial pulses bilaterally, and cap refill < 2 seconds. Lungs: Respirations even, regular, and unlabored on room air. Lungs CTA bilaterally, no rhonchi, no rales, no wheezing, and no accessory muscle usage. Abdominal: soft, nontender to palpation, no guarding, no appreciable organomegaly Ext: ROM intact. No gross muscle atrophy, no edema, no contractures Neuro: Speech clear, face symmetrical and CN II-XII grossly intact with no noted focal neuro deficits GCS 15. Psych: Alert and oriented to person and place but confused to time and situation. Assessment and Plan of Care: Syncopal episode, unclear if total loss of consciousness but patient is exhibiting memory loss Fall, injury/pain back pain -Telemetry monitoring -Cardiology consult, will need report/interrogation of loop recorder. -Neurology hollowing, recommend EEG and repeat CT tomorrow morning. -CT head ordered revealing cerebral atrophy and chronic small vessel ischemia with progression of the white matter disease compared to previous exam completed 10/18/2019. -CT lumbar spine revealing multilevel hypertrophic degenerative changes, osteopenia negative for acute fracture or significant change compared to previous exam completed 11/06/21. -Neuro checks -Fall precautions Hypertension -Monitor vital signs and continue daily medication regimen with lisinopril and carvedilol. Hyperlipidemia -Continue daily medication regimen with atorvastatin. Hypothyroidism -Continue daily medication regimen with levothyroxine. CODE STATUS: Full code DVT prophylaxis: Lovenox Discussed with: Patient and RN Anticipated discharge date: Patient to be discharged once loop recorder report is available and can be cleared from cardiac perspective patient medically and neurologically clear at this time. Anticipated discharge place: Home A total of 31 minutes was spent on the care of this complex patient more than 50% of the time was spent in counseling and care coordination. I reviewed the documentation as provided by the MARY above, who is the original author of this note. I agree with the documented assessment and plan, with the following changes: none Objective - Vital Signs Vital signs: Vital Signs Temp 98.4 F 02/18/22 06:32 Pulse 87 02/18/22 06:32 Resp 19 02/18/22 06:32 BP 143/82 02/18/22 06:32 Pulse Ox 98 02/18/22 08:50 FiO2 21 02/18/22 08:50 Intake & Output 02/17/22 02/18/22 02/18/22 18:59 06:59 18:59 Intake Total 240 Output Total 1 Balance 239 Intake: Oral 240 Output: Stool 1 Other: Voiding Method Toilet Toilet # Voids 1 1 - Labs CBC & Chem 7: 02/16/22 08:34 02/16/22 08:34
[2022-02-18 14:57] VITALS: BP 128/64; PULSE 54; RESP 16; TEMP 97.5
--- NOTE | 2022-02-18 14:57 | P.DS ---
Providers Date of admission: 02/16/22 10:35 Expected date of discharge: 02/18/22 Attending physician: Shaneka Montemayor MD Consults: 02/16/22 10:35 Consult Physician Urgent Consulting Provider: [facility] Consult Reason/Comments: Syncope Do you want consulting provider notified?: Yes 02/16/22 12:56 Consult Physician Routine Consulting Provider: Reece Pleitez Consult Reason/Comments: syncope with memory loss Do you want consulting provider notified?: Yes Primary care physician: [facility], Located [facility] Course: Discharge Diagnosis: Syncopal episode, unclear if total loss of consciousness but patient is exhibiting memory loss. Transient global amnesia. Patient to follow up outpatient with neurology in 2 weeks. Bradycardia reported on loop recorder results. Follow up with cardiology in 1 week. Fall, injury/pain back pain. CT lumbar spine revealing multilevel hypertrophic degenerative changes, osteopenia negative for acute fracture or significant change compared to previous exam completed 11/06/21. Hypertension. Monitor vital signs and continue daily medication regimen with lisinopril and carvedilol. Hyperlipidemia. Continue daily medication regimen with atorvastatin. Hypothyroidism. Continue daily medication regimen with levothyroxine. Hospital Course: Patient is a very pleasant 81-year-old female with a past medical history of hypertension, hyperlipidemia, and hypothyroidism. He presented to the emergency department status post fall with concerns of possible syncopal episode at home, patient's reports patient had a similar event in November and has a loop recorder placed secondary to history of concerns of having runs of V. tach. Per patient's , she was lying in bed and around 7:30 am she heard a very loud thud come from the kitchen and immediately yelled what fell and she reports after a minute she yelled again, "what fell" and got up to go into the kitchen and her finally answered back, "I did". She states upon entering the kitchen she found her sitting on the floor leaning up against the kitchen cupboards. She reports her could not remember what happened or how he fell or whether or not he lost consciousness and does not recall the events leading up to this fall. She reports that he has been experiencing some intermittent difficulties with his memory over the past couple months. However she reports this is typically with words, but today he does not remember fall or events leading up to the fall. Upon evaluation at bedside patient reports the last thing he remembers is a couple days ago. Patient's reports this is not patient's baseline normal. Patient however denies having any complaints at this time including headache, lightheadedness, dizziness, chest pain, palpitations, shortness of breath, or experiencing any numbness/tingling/weakness in his extremities. He underwent a full evaluation in the emergency department. EKG completed revealing sinus mechanism at 73 bpm with frequent PACs. Chest x-ray negative for acute cardiopulmonary process revealing prominent eventration of right hemidiaphragm similar to previous exam completed on 12/25/21. X-ray thoracic spine showing osteopenia and extensive changes with a fixed accentuated mid thoracic kyphosis and moderate degenerative disc disease in the thoracal lumbar junction and visualized upper lumbar spine. CBC revealing leukopenia with WBC count of 2.9 (likely chronic as WBC count on 12/25/21 was 3.2). Coagulation profile unremarkable. CMP revealing mild hyponatremia with sodium of 133, hypochloremia with chloride of 97 and stable blood glucose level of 125. Troponin negative at less than 0.012. Patient was admitted under our services with consultation to cardiology and neurology. Troponins were trended and all less than 0.0123 draws. Lipid profile unremarkable. Vitamin B12 and folate normal findings. TSH was elevated at 6.040 however free T4 was within normal limits. Computed tomography scan was completed on 01/16/22 which revealed cerebral atrophy and chronic small vessel ischemia with mild progression of white matter compared to previous exam but negative for acute process. Patient underwent an EEG which was negative for any signs of epileptiform activity. Repeat BP completed 02/18/22 as patient could not undergo MRI due to loop recorder. Repeat CT unchanged and revealed no acute intercranial process. Neurology clearing patient from neurological standpoint commending no further inpatient testing at this time. Loop recorder was interrogated by cardiology. Cardiology reporting episodes of bradycardia prior to syncopal episode. Cardiology clearing patient from cardiac standpoint recommending outpatient follow-up in their office in one week. Medically, patient is stable for discharge at this time. Patient to follow up outpatient with PCP, cardiology, and neurology. Physical exam: Vital signs reviewed and stable. General: Nontoxic, no distress and appears stated age. Derm: Skin warm and dry, normal coloration for ethnicity. No bruising noted from fall and back pain. Head: Atraumatic, normocephalic and symmetric. Eyes: EOMs intact, no lid lag, and anicteric sclera Mouth: no lip lesions, mucus membranes moist Cardiovascular: regular rate and rhythm with normal S1S2, soft systolic murmur, positive posterior tibial pulses bilaterally, and cap refill < 2 seconds. Lungs: Respirations even, regular, and unlabored on room air. Lungs CTA bilaterally, no rhonchi, no rales, no wheezing, and no accessory muscle usage. Abdominal: soft, nontender to palpation, no guarding, no appreciable organomegaly Ext: ROM intact. No gross muscle atrophy, no edema, no contractures Neuro: Speech clear, face symmetrical and CN II-XII grossly intact with no noted focal neuro deficits GCS 15. Psych: Alert and oriented to person and place but confused to time and s ituation. A total of 35 minutes of time were spent preparing this complex discharge summary. Pt was discharged on 02/18/22 at 2:47 PM I reviewed the documentation as provided by the MARY above, who is the original author of this note. I agree with the documented assessment and plan, with the following changes: none Patient Condition at Discharge: Stable Plan - Discharge Summary New Discharge Prescriptions: No Action Levothyroxine Sodium [Synthroid] 100 mcg PO DAILY Enalapril [Vasotec] 20 mg PO DAILY Atorvastatin [Lipitor] 40 mg PO DAILY Krill Oil 300mg 1 tab PO DAILY Serrapeptase 120,000 Iu 120,000 unit PO DAILY carvediloL [Coreg] 3.125 mg PO BID Discharge Medication List Atorvastatin [Lipitor] 40 mg PO DAILY 10/18/19 [History] Enalapril [Vasotec] 20 mg PO DAILY 10/18/19 [History] Krill Oil 300mg 1 tab PO DAILY 10/18/19 [History] Levothyroxine Sodium [Synthroid] 100 mcg PO DAILY 10/18/19 [History] Serrapeptase 120,000 Iu 120,000 unit PO DAILY 12/25/21 [History] carvediloL [Coreg] 3.125 mg PO BID 12/25/21 [History] Follow up Appointment(s)/Referral(s): Luiz Jackson DO [STAFF PHYSICIAN] - 03/05/22 10:30 am (APPOINTMENT IS WITH ) Colby Sanchez MD [Medical Doctor] - 2 Weeks (PLEASE CALL AND SCHEDULE APPOINTMENT. ) Carlitos Leblanc PAC [Primary Care Provider] - 1-2 days (PLEASE CALL AND SCHEDULE APPOINTMENT.) Patient Instructions/Handouts: Heart Healthy Diet (DC), Syncope (DC), Fall Prevention for Older Adults (DC), Basic Carbohydrate Counting (DC), Bradycardia (DC), Transient Global Amnesia (GEN) Activity/Diet/Wound Care/Special Instructions: Activity: As tolerated. Take breaks as needed. Diet: Heart healthy and carb consistent diet. Avoid salts, or foods with hidden salts such as canned or boxed foods and frozen dinners. Extra salt makes your heart work harder and traps the fluid in your body for longer. Special Instructions: Take all of your medications as directed and remember to keep all of your doctor's appointments and follow-up as needed. Thank you for allowing us to participate in your care, it was truly a pleasure having you for our patient!!! Discharge Disposition: HOME SELF-CARE
--- NOTE | 2022-02-19 00:44 | EEG ---
ELECTROENCEPHALOGRAM REPORT CLINICAL HISTORY: This is an 81-year-old gentleman with a syncopal episode at home. The video EEG is obtained to evaluate for seizure epileptiform activity. RELEVANT MEDICATIONS: The patient is not on any antiepileptic drugs. EEG TYPE: A routine 21-channel EEG is performed with video using the 10/20 electrode placement system. DESCRIPTION: Wakefulness is only obtained. During awake state, the posterior-dominant rhythm consists of low to moderate voltage of 6.5 hertz activity that is semi-well modulated as well as sustained. There is no physiological stage 2 sleep architecture. There is no focal slowing. Interictal and ictal is none. ACTIVATION PROCEDURE: Photic stimulation did not evoke a posterior driving response. There is no abnormality during the photic stimulation. Hyperventilation is not performed. CLINICAL INTERPRETATION: This is an abnormal routine EEG. The background slowing is suggestive of mild encephalopathy of unknown etiology. There is no focal slowing, epileptiform discharge or seizure on the EEG. Clinical correlation is recommended. CINDY / MADELIN: [id number] / [email or web address]
== END 2022-02-18 16:10 | disposition home or self-care (01) ==
LOC: EC 08:19 → 6NMEDSUR 10:35
PROVIDERS: ADMIT Internal Medicine; ATTEND Internal Medicine
DX: R55 Syncope and collapse (principal); E78.5 Hyperlipidemia, unspecified; I10 Essential (primary) hypertension; M47.814 Spondylosis without myelopathy or radiculopathy, thoracic region; M51.35 Other intervertebral disc degeneration, thoracolumbar region; M85.88 Other specified disorders of bone density and structure, other site; M40.204 Unspecified kyphosis, thoracic region; G45.4 Transient global amnesia; E03.9 Hypothyroidism, unspecified; E87.1 Hypo-osmolality and hyponatremia; E87.8 Other disorders of electrolyte and fluid balance, not elsewhere classified; I45.10 Unspecified right bundle-branch block; G31.9 Degenerative disease of nervous system, unspecified; I35.0 Nonrheumatic aortic (valve) stenosis; I70.0 Atherosclerosis of aorta; Z79.899 Other long term (current) drug therapy; Z79.890 Hormone replacement therapy; Z79.82 Long term (current) use of aspirin; Z88.0 Allergy status to penicillin; Z87.891 Personal history of nicotine dependence; R00.1 Bradycardia, unspecified
CPT/HCPCS: 96372 ×2; 96376; 96374; 99285; 36415; 94760 ×2; 95816; 93005; 84439; 80061; 80053; 84443; 82607; 82140; 82746; 83605; 83735; 84484; 85025; 85610; 85730; 72072; 71046; 72131; 70450; 70470; G0378 ×3; J1650 ×2; J1885 ×2; Q9967

== ENCOUNTER → 2022-02-27 | Outpatient (CLI) | payer MEDICARE | LOC: NEUROMAIN 07:43 | PROVIDERS: ATTEND Student in an Organized Health Care Education/Training Program | DX: R55 Syncope and collapse (principal); Z88.0 Allergy status to penicillin | CPT/HCPCS: 95713 ==

== ENCOUNTER 2022-04-02 10:48 | Day surgery (SDC) | payer MEDICARE ==
[~2022-04-02 10:48] MED LIST changes: -HYDROmorphone 0.5 MG/0.5 ML SYRINGE IVP PRN; -LACTATED RINGERS 1,000 ML IV SCH; -LIDOCAINE 1% (10MG/ML) FOR IV START INTRADERMA PRN
[2022-04-02] MEDS ORDERED: SODIUM CHLORIDE 0.9% 500 ML 500 ML IV ONE (11:19)
[2022-04-02 11:44] VITALS: RESP 16; TEMP 98.2
[2022-04-02 16:45] VITALS: BP 130/67; PULSE 78
--- NOTE | 2022-04-02 17:57 | P.EPPROC ---
- EP Procedure Note Electrophysiology Procedure Note: Diagnosis Recurrent syncope Twelve-lead EKG shows sinus rhythm normal MO interval narrow QRS normal ST segments normal QT interval Left axis deviation Tilt table test Baseline blood pressure 143/67 mmHg, Baseline heart rate 73 beats a minute Patient was tilted upright at an angle of 70 per protocol No significant change heart rate No significant change in blood pressure The patient may be symptomatic No evidence for neurocardiogenic syncope or dysautonomia Impression Twelve-lead EKG shows left axis deviation Tilt table test that are fairly evidence for dysautonomia on neurocardiogenic syncope
== END 2022-04-02 13:10 | disposition home or self-care (01) ==
LOC: CATHEP 10:48
PROVIDERS: ATTEND Internal Medicine Clinical Cardiac Electrophysiology
DX: R55 Syncope and collapse (principal); I10 Essential (primary) hypertension; I35.0 Nonrheumatic aortic (valve) stenosis; E78.5 Hyperlipidemia, unspecified; Z79.899 Other long term (current) drug therapy
CPT/HCPCS: 93660

== ENCOUNTER 2022-09-15 18:35 | Emergency (ER) | payer MEDICARE ==
--- NOTE | 2022-09-15 18:56 | ED ---
Fall HPI - General Stated Complaint: fall Time Seen by Provider: 09/15/22 18:37 Source: patient - History of Present Illness MD Complaint: fall -: minutes(s) Fall From: standing When Fall Occurred: just prior to arrival Fall Witnessed: yes, by family Place Fall Occurred: street Loss of Consciousness: none Prolonged Down Time?: no Symptoms Prior to Fall: none Quality: aching Context: tripped/slipped Associated Symptoms: denies - Related Data Home Medications Medication Instructions Recorded Confirmed Krill Oil 300mg 1 tab PO DAILY 10/18/19 04/02/22 Levothyroxine Sodium [Synthroid] 100 mcg PO DAILY 10/18/19 04/02/22 Serrapeptase 120,000 Iu 120,000 unit PO DAILY 12/25/21 04/02/22 Unk Multi Vitamin 1 tab PO DAILY 03/28/22 04/02/22 hydroCHLOROthiazide 25 mg PO DAILY 03/28/22 04/02/22 lisinopriL [Zestril] 30 mg PO DAILY 03/28/22 04/02/22 Allergies Allergy/AdvReac Type Severity Reaction Status Date / Time Penicillins Allergy Swelling & Verified 03/28/22 10:56 Rash & cold Sweats Review of Systems ROS Statement: Those systems with pertinent positive or pertinent negative responses have been documented in the HPI. ROS Other: All systems not noted in ROS Statement are negative. Constitutional: Denies: fever Eyes: Denies: vision change Respiratory: Denies: cough, dyspnea Cardiovascular: Reports: chest pain. Denies: palpitations, edema, syncope Gastrointestinal: Denies: abdominal pain, vomiting Genitourinary: Denies: dysuria, hematuria Musculoskeletal: Denies: back pain Skin: Denies: rash Neurological: Denies: headache, weakness Past Medical History Past Medical History: Hyperlipidemia, Hypertension, Thyroid Disorder Additional Past Medical History / Comment(s): hx of passing out had loop recorder placed. occasional heart burn. arthritis in hands see Dr Ga H&P History of Any Multi-Drug Resistant Organisms: None Reported Additional Past Surgical History / Comment(s): varicose vein surgery, cyst removal from hand, loop recorder placed approx 2020 unk device name Past Anesthesia/Blood Transfusion Reactions: No Reported Reaction Type of Cardiac Device: Loop Smoking Status: Former smoker - Past Family History Mother Family Medical History: No Reported History Father Family Medical History: No Reported History General Exam General appearance: alert, in no apparent distress Head exam: Present: atraumatic, normocephalic Eye exam: Present: normal appearance. Absent: scleral icterus, conjunctival injection ENT exam: Present: normal oropharynx Neck exam: Present: normal inspection Respiratory exam: Present: normal lung sounds bilaterally, chest wall tenderness (Left chest costal margin). Absent: respiratory distress, wheezes, rales, rhonchi, stridor Cardiovascular Exam: Present: regular rate, normal rhythm, normal heart sounds. Absent: systolic murmur, diastolic murmur, rubs, gallop GI/Abdominal exam: Present: soft. Absent: distended, tenderness, guarding, rebound, rigid, mass Extremities exam: Present: normal inspection, normal capillary refill. Absent: pedal edema, calf tenderness Back exam: Present: normal inspection, CVA tenderness (R). Absent: CVA tenderness (L) Neurological exam: Present: alert, oriented X3, CN II-XII intact. Absent: motor sensory deficit Skin exam: Present: warm, dry, intact, normal color, abrasion (Bilateral wrists, left ankle) Course Vital Signs 09/15/22 09/15/22 19:04 21:09 Temperature 97.9 F Pulse Rate 67 78 Respiratory 18 16 Rate Blood Pressure 172/94 168/85 O2 Sat by Pulse 100 98 Oximetry Medical Decision Making - Medical Decision Making This patient had chest and rib x-rays which I interpreted as not showing acute bony injury, pneumothorax, or infiltrate. The patient is an 82-year-old man who had a level fall. He is feeling better after course in emergency departments. Was pt. sent in by a medical professional or institution (, PA, BROKE BEATER MACHINE OPERATOR, urgent care, hospital, or group home...) When possible be specific @ -[No] Did you speak to anyone other than the patient for history (EMS, parent, family, police, friend...)? What history was obtained from this source @ -[No] Did you review nursing and triage notes (agree or disagree)? Why? @ -[I reviewed and agree with nursing and triage notes] Were old charts reviewed (outside hosp., previous admission, EMS record, old EKG, old radiological studies, urgent care reports/EKG's, group home records)? Report findings @ -[No old charts were reviewed] Differential Diagnosis (chest pain, altered mental status, abdominal pain women, abdominal pain men, vaginal bleeding, weakness, fever, dyspnea, syncope, headache, dizziness, GI bleed, back pain, seizure, CVA, palpatations, mental health, musculoskeletal)? @ -[Differential Musculoskeletal Muscular strain, contusion, ligament sprain, fracture, arthritis, septic arthritis, bursitis, cellulitis, muscle spasm, nerve compression, DVT, arterial occlusion, herpes zoster, electrolyte abnormality, tumor.... This is not meant to be in all inclusive list EKG interpreted by me (3pts min.). @ -[As above] X-rays interpreted by me (1pt min.). @ -[As above CT interpreted by me (1pt min.). @ -[None done] U/S interpreted by me (1pt. min.). @ -[None done] What testing was considered but not performed or refused? (CT, X-rays, U/S, labs)? Why? @ -[None] What meds were considered but not given or refused? Why? @ -[None] Did you discuss the management of the patient with other professionals (professionals i.e. , PA, BROKE BEATER MACHINE OPERATOR, lab, RT, psych nurse, social work msw, scientist engineer, teacher, event security officer, gearcase assembler)? Give summary @ -[No] Was smoking cessation discussed for >3mins.? @ -[No] Was critical care preformed (if so, how long)? @ -[No] Were there social determinants of health that impacted care today? How? (Home lessness, low income, unemployed, alcoholism, drug addiction, transportation, low edu. Level, literacy, decrease access to med. care, nursing home, rehab)? @ -[No] Was there de-escalation of care discussed even if they declined (Discuss DNR or withdrawal of care, Hospice)? DNR status @ -[No] What co-morbidities impacted this encounter? (DM, HTN, Smoking, COPD, CAD, Cancer, CVA, ARF, Chemo, Hep., AIDS, mental health diagnosis, sleep apnea, morbid obesity)? @ -[None] Was patient admitted / discharged? Hospital course, mention meds given and route, prescriptions, significant lab abnormalities, going to OR and other pertinent info. @ -[Discharged Undiagnosed new problem with uncertain prognosis? @ -[No] Drug Therapy requiring intensive monitoring for toxicity (Heparin, Nitro, Insulin, Cardizem)? @ -[No] Were any procedures done? @ -[No] Diagnosis/symptom? @ -[d fall injury Chest wall contusion Acute, or Chronic, or Acute on Chronic? @ -[Acute Uncomplicated (without systemic symptoms) or Complicated (systemic symptoms)? @ -[unComplicated Side effects of treatment? @ -[No] Exacerbation, Progression, or Severe Exacerbation? @ -[No] Poses a threat to life or bodily function? How? (Chest pain, [place], [place], pneumonia, PE, COPD, DKA, ARF, appy, cholecystitis, CVA, Diverticulitis, Homicidal, Suicidal, threat to staff... and all critical care pts) @ -[No] - EKG Data -: EKG Interpreted by Me EKG shows normal: sinus rhythm, axis (Left axis deviation), intervals (Normal) Rate: normal (Rate 69 bpm) Interpretation: LVH (Voltage criteria) Disposition Clinical Impression: Fall, Left-sided chest wall pain, Skin tear of forearm without complication Disposition: HOME SELF-CARE Condition: Good Instructions (If sedation given, give patient instructions): Rib Fracture (ED), Fall Prevention for Older Adults (ED), Skin Tear (ED) Is patient prescribed a controlled substance at d/c from ED?: No Referrals: None,Stated [REFERRING] - 1-2 days
[2022-09-15 19:09] VITALS: TEMP 97.9
--- NOTE | 2022-09-15 19:49 | XR ---
EXAMINATION TYPE: XR ribs LT w pa chest xray DATE OF EXAM: 09/15/2022 7:28 PM INDICATION: Patient age:Male; 82 years old; Reason for study: fall injury; PHH. COMPARISON: Chest x-ray 02/16/2022 TECHNIQUE: Frontal and oblique views of the left ribs with frontal chest radiograph. FINDINGS: The ribs have a normal appearance. No evidence of fracture. Overall, the lungs are clear. Similar eventration of the right hemidiaphragm. The cardiac silhouette is normal in size. The remai byron osseous structures are intact. Cardiac loop recorder projects over the left chest wall. Atherosc lerotic calcifications of the thoracic aorta. IMPRESSION RIBS: No evidence for displaced rib fractures or acute cardiopulmonary process.
[2022-09-15] MEDS ORDERED: TOPICAL SKIN ADHESIVE 1 EACH AMP TOPICAL ONE (21:06)
[2022-09-15] MEDS ORDERED: BACITRACIN OINT 1 EACH PACKET TOPICAL ONE (21:07)
[2022-09-15] MEDS ORDERED: HYDROcodone/APAP 5-325MG 1 EACH TAB PO STA (21:07)
[2022-09-15 21:48] VITALS: BP 168/85; PULSE 78; RESP 16
== END 2022-09-15 22:26 | disposition home or self-care (01) ==
LOC: EC 18:35
DX: S51.812A Laceration without foreign body of left forearm, initial encounter (principal); S51.811A Laceration without foreign body of right forearm, initial encounter; S20.212A Contusion of left front wall of thorax, initial encounter; S90.512A Abrasion, left ankle, initial encounter; I10 Essential (primary) hypertension; E07.9 Disorder of thyroid, unspecified; Z79.890 Hormone replacement therapy; Z79.899 Other long term (current) drug therapy; Z88.0 Allergy status to penicillin; Z87.891 Personal history of nicotine dependence; W01.0XXA Fall on same level from slipping, tripping and stumbling without subsequent striking against object, initial encounter; Y92.410 Unspecified street and highway as the place of occurrence of the external cause
CPT/HCPCS: 93005; 99285

== ENCOUNTER → 2022-11-15 | Outpatient (CLI) | payer MEDICARE ==
--- NOTE | 2022-11-15 15:37 | MR ---
EXAMINATION TYPE: MR brain wo/w con DATE OF EXAM: 11/15/2022 3:19 PM CLINICAL INDICATION:Male, 82 years old with history of R41.3 OTHER AMNESIA; Memory loss, unsteady gai t, CVA COMPARISON: 12/15/2017 TECHNIQUE: Multi planar, multi sequence imaging was performed through the brain including: T1, T2, In version recovery, susceptibility weighted imaging and gradient echo imaging and Diffusion weighted im aging. The patient was then given intravenous contrast and multi planar, T1 fat-saturation images wer e obtained. IV Contrast: 9.5 cc Gadavist FINDINGS: Cerebral atrophy with proportional dilation of ventricular system. The burnham-white junctions, ventricular system, basal cisterns appear unremarkable. Diffusion-weighted imaging shows no evidence of restricted diffusion to suggest acute/subacute infarct. Intracranial art erial flow voids are maintained. Midline structures show no abnormality. Scattered foci of high T2 si gnal intensity are seen within the periventricular white matter. The susceptibility weighted images d o not reveal any evidence for micro-hemorrhage. After administration of gadolinium, no abnormal enhan cement is seen. The bone marrow signal is within normal limits. Paranasal sinuses and mastoid air cells: No significant paranasal sinus disease. Visualized orbits: Orbital contents are intact. IMPRESSION: 1. No evidence of intracranial mass, acute/subacute infarct, or abnormal enhancement. 2. Nonspecific white matter changes, likely related to small vessel ischemic disease
== END | disposition home or self-care (01) ==
LOC: RADMRIMAIN 14:01
PROVIDERS: ATTEND Psychiatry & Neurology Neurology
DX: R90.82 White matter disease, unspecified (principal); R41.3 Other amnesia
CPT/HCPCS: 70553; A9585

== ENCOUNTER 2023-11-23 13:16 | Inpatient (IN) | payer MEDICARE ==
[2023-11-23 13:57] LABS: Glucose,Whole Blood 158 mg/dL (70-110)
[2023-11-23] MEDS: SODIUM CHLORIDE 0.9% 1,000 ML IV ONE (14:11)
[2023-11-23 14:17] LABS: Basophils % (A) 0 %; Eosinophils % (A) 1 %; HCT 40.8 % (39.0-53.0); HGB 13.6 gm/dL (13.0-17.5); Lymphocytes # (A) 0.4 k/uL (1.0-4.8); Lymphocytes % (A) 12 %; MCH 31.9 pg (25.0-35.0); MCHC 33.5 g/dL (31.0-37.0); MCV 95.2 fL (80.0-100.0); Mean Platelet Volume 11.2; Monocytes # (A) 0.3 k/uL (0-1.0); Monocytes % (A) 10 %; Neutrophils # (A) 2.4 k/uL (1.3-7.7); Neutrophils % (A) 75 %; RBC 4.29 m/uL (4.30-5.90); RDW 13.8 % (11.5-15.5); WBC 3.2 k/uL (3.8-10.6)
[2023-11-23 14:21] LABS: Prothrombin Time 10.8 sec (10.0-12.5)
[2023-11-23 14:22] LABS: Partial Thromboplastin Time 25.4 sec (22.0-30.0)
[2023-11-23 14:27] LABS: ALT 27 U/L (4-49); AST 29 U/L (17-59); African American GFR (CKD) >90 (>60 ml/min/1.73 sqM); Albumin 3.6 g/dL (3.5-5.0); Alcohol <10 mg/dL; Alkaline Phosphatase 56 U/L (38-126); Anion Gap 5 mmol/L; Blood Urea Nitrogen 18 mg/dL (9-20); Calcium 8.8 mg/dL (8.4-10.2); Carbon Dioxide 23 mmol/L (22-30); Chloride 102 mmol/L (98-107); Glucose 168 mg/dL (74-99); Non-African American GFR(CKD) 81 (>60 ml/min/1.73 sqM); Sodium 130 mmol/L (137-145); Total Bilirubin 0.9 mg/dL (0.2-1.3); Total Protein 5.9 g/dL (6.3-8.2)
[2023-11-23 14:58] LABS: Platelet Count 87 k/uL (150-450)
[2023-11-23 14:59] LABS: RBC Morphology Normal
--- NOTE | 2023-11-23 15:04 | CT ---
EXAMINATION TYPE: CT brain wo con DATE OF EXAM: 11/23/2023 COMPARISON: 02/18/2022 HISTORY: 83-year-old male confusion, AMS TECHNIQUE: Examination was done in axial plane without intravenous contrast. Coronal and sagittal r econstructions performed. CT DLP: 1149.4 mGycm Automated exposure control for dose reduction was used. FINDINGS: There is trace, 3 mm thick isodensity along the left lateral convexity, for example, axial images 42 and 43 and coronal image 36. No evidence for acute intracranial hemorrhage, acute ischemic change, mass, mass effect, or midline s hift. No effacement of cerebral sulci or basal subarachnoid cisterns. John-white matter differentiati on is maintained. Mild ventricular prominence is unchanged suggesting central cervical atrophy. Mild patchy white matte r hypodensities in both cerebral hemispheres. Moderate mucosal thickening throughout the ethmoid air cells. Mastoid air cells are pneumatized. Orbi ts and globes are intact. IMPRESSION: Findings suspicious for a trace 3 mm thick subacute subdural hematoma along the left lateral convexit y. No mass effect or midline shift. No acute intracranial abnormality seen. Called to Dr. Gordon in the ER at 3:00 PM.
--- NOTE | 2023-11-23 15:14 | ED ---
General Adult HPI - General Chief complaint: Altered Mental Status Stated complaint: Weakness-Poss stroke Time Seen by Provider: 11/23/23 13:45 Source: patient, family, RN notes reviewed, old records reviewed Mode of arrival: ambulatory Limitations: no limitations - History of Present Illness Initial comments: Patient is an 83-year-old male who presents emergency department for a brief episode of confusion. Patient was sitting at the lunch table along with and he felt like he was sitting and almost lost consciousness. Was not responding and was only moving a napkin under a plate. Was moving. Episode lasted 10 seconds. Was brought here for further evaluation. Denies any head injuries. Denies fall. Is not on blood thinners. Has a history of hypertension, hyperlipidemia, thyroid disorder. Denies any blurry vision. Denies any significant weakness but states he just feels somewhat ill. Denies any other acute complaints at th is time. Endorses a cough that has been ongoing for over a week. Denies chest pain. Presents for further evaluation. - Related Data Home Medications Medication Instructions Recorded Confirmed Levothyroxine Sodium [Synthroid] 100 mcg PO DAILY 10/18/19 11/23/23 lisinopriL [Zestril] 20 mg PO DAILY 03/28/22 11/23/23 Atorvastatin [Lipitor] 40 mg PO DAILY 11/23/23 11/23/23 Galantamine HBr [Razadyne ER] 24 mg PO DAILY 11/23/23 11/23/23 Memantine [Namenda] 10 mg PO BID 11/23/23 11/23/23 Allergies Allergy/AdvReac Type Severity Reaction Status Date / Time Penicillins Allergy Swelling & Verified 11/23/23 15:51 Rash & cold Sweats Review of Systems ROS Statement: Those systems with pertinent positive or pertinent negative responses have been documented in the HPI. Review of Systems: CONST: Denies fever EYES: Denies blurry vision ENT: Denies nasal congestion C/V: Denies Chest pain RESP: Endorses nonproductive cough GI: Denies abdominal pain : Denies dysuria SKIN: Denies rash. MSK: Denies joint pain. NEURO: Endorses generalized weakness ROS Other: All systems not noted in ROS Statement are negative. Past Medical History Past Medical History: Hyperlipidemia, Hypertension, Thyroid Disorder Additional Past Medical History / Comment(s): hx of passing out had loop recorder placed. occasional heart burn. arthritis in hands see Dr Ga H&P History of Any Multi-Drug Resistant Organisms: None Reported Additional Past Surgical History / Comment(s): varicose vein surgery, cyst removal from hand, loop recorder placed approx 2019 unk device name Past Anesthesia/Blood Transfusion Reactions: No Reported Reaction Type of Cardiac Device: Loop Past Psychological History: No Psychological Hx Reported Smoking Status: Former smoker - Past Family History Mother Family Medical History: No Reported History Father Family Medical History: No Reported History General Exam - General Exam Comments Initial Comments: General: Appears in no acute distress. HEAD: Normal with no signs of head trauma. EYES: PERRLA, EOMI, conjunctiva normal, no discharge. Pupils are 2 mm and equal bilaterally. ENT: Hearing grossly intact, normal oropharynx. RESPIRATORY: Clear breath sounds bilaterally. No wheezes, rales, or rhonchi. C/V: Regular rate and rhythm. S1 and S2 auscultated, no edema, peripheral pulses 2+ and intact throughout ABD: Abd is soft, nontender, nondistended EXT: Normal range of motion, no obvious deformity SKIN: No rashes or lesions observed on exposed skin. NEURO: Alert and oriented x 4. Cranial nerves II-XII intact. No focal sensory or strength deficits. GCS of 15. NIH of 0. Limitations: no limitations Course Vital Signs 11/23/23 11/23/23 11/23/23 13:18 13:37 14:58 Temperature 98.1 F Pulse Rate 71 79 60 Respiratory 16 18 18 Rate Blood Pressure 145/64 141/67 146/66 O2 Sat by Pulse 99 98 96 Oximetry 11/23/23 11/23/23 16:47 18:29 Temperature 98.6 F Pulse Rate 65 59 L Respiratory 18 18 Rate Blood Pressure 136/90 O2 Sat by Pulse 97 97 Oximetry Medical Decision Making - Medical Decision Making Was pt. sent in by a medical professional or institution (, PA, STEAM GIGGER, urgent care, hospital, or retirement...) When possible be specific @ -No Did you speak to anyone other than the patient for history (EMS, parent, family, police, friend...)? What history was obtained from this source @ -Patient's witnessed the incident. Is able to confirm that patient is currently at mental status baseline. Did you review nursing and triage notes (agree or disagree)? Why? @ -I reviewed and agree with nursing and triage notes Were old charts reviewed (outside hosp., previous admission, EMS record, old EKG, old radiological studies, urgent care reports/EKG's, retirement records)? Report findings @ -Old charts reviewed to confirm patient is not on blood thinners. Differential Diagnosis (chest pain, altered mental status, abdominal pain women, abdominal pain men, vaginal bleeding, weakness, fever, dyspnea, syncope, headache, dizziness, GI bleed, back pain, seizure, CVA, palpatations, mental health, musculoskeletal)? @ -MDM differential altered mental status. EKG interpreted by me (3pts min.). @ -As above X-rays interpreted by me (1pt min.). @ -Chest x-ray reveals no obvious acute cardiopulmonary process. Chronic changes present. CT interpreted by me (1pt min.). @ -Interpreted by myself as well as contacted by radiology. Does show findings suspicious for a small 3 mm thick subacute, dating a few weeks ago to a few days ago subdural hematoma along the left lateral convexity. No midline shift. No mass effect present. Does not appear acute. I was notified by Dr. Serrano of radiology. Spoke with Dr. Butler who was in agreement with obtaining repeat CT brain in the morning. I spoke with the admitting provider, Dr. Green of [facility] who accepted the admission. U/S interpreted by me (1pt. min.). @ -None done What testing was considered but not performed or refused? (CT, X-rays, U/S, labs)? Why? @ -None What meds were considered but not given or refused? Why? @ -None Did you discuss the management of the patient with other professionals (professionals i.e. , PA, STEAM GIGGER, lab, RT, psych nurse, social media job titles, grading machine operator, teacher, collections officer, embedded case manager)? Give summary @ -No Was smoking cessation discussed for >3mins.? @ -No Was critical care preformed (if so, how long)? @ -No Were there social determinants of health that impacted care today? How? (Home lessness, low income, unemployed, alcoholism, drug addiction, transportation, low edu. Level, literacy, decrease access to med. care, alf, rehab)? @ -No Was there de-escalation of care discussed even if they declined (Discuss DNR or withdrawal of care, Hospice)? DNR status @ -No What co-morbidities impacted this encounter? (DM, HTN, Smoking, COPD, CAD, Cancer, CVA, ARF, Chemo, Hep., AIDS, mental health diagnosis, sleep apnea, morbid obesity)? @ -None Was patient admitted / discharged? Hospital course, mention meds given and route, prescriptions, significant lab abnormalities, going to OR and other pertinent info. @ -Presents with a brief episode of altered mental status that lasted 10 s econds prior to arrival. Currently is at his mental status baseline. Vital signs within acceptable limits. NIH is 0. GCS of 15. We will obtain basic labs. He was in agreement this plan. His only other complaint of generalized weakness for over a week with a cough. Vital signs are within acceptable limits. Labs remarkable for COVID-19 infection being positive. Mildly thrombocytopenic to a platelet count of 87. Remainder the workup unremarkable in terms of labs. [facility] does show a trace subacute left-sided subdural hematoma with no mass effect or midline shift. Patient has no symptoms at this time. NIH remains 0. I will reach out to neurology Dr. Butler regarding management. Spoke with Dr. Butler who was in agreement with obtaining repeat CT brain in the morning. This was ordered. Will continue to monitor. Patient remains asymptomatic. Patient be given a dose of steroids for his COVID. I did speak with the patient and updated him and he was in agreement the plan for admission. I spoke with the admitting provider, Dr. Green of [facility] who accepted the admission. Undiagnosed new problem with uncertain prognosis? @ -No Drug Therapy requiring intensive monitoring for toxicity (Heparin, Nitro, Insulin, Cardizem)? @ -No Were any procedures done? @ -No Diagnosis/symptom? @ -COVID-19 infection, subacute subdural hematoma Acute, or Chronic, or Acute on Chronic? @ -Acute, subacute Uncomplicated (without systemic symptoms) or Complicated (systemic symptoms)? @ -Uncomplicated Side effects of treatment? @ -[none] Exacerbation, Progression, or Severe Exacerbation] @ -[no] Poses a threat to life or bodily function? @ -Potentially, if rebleed occurs. - Lab Data Result diagrams: 11/23/23 13:56 11/23/23 13:56 Lab Results 11/23/23 11/23/23 11/23/23 Range/Units 13:56 13:56 13:56 WBC 3.2 L (3.8-10.6) k/uL RBC 4.29 L (4.30-5.90) m/uL Hgb 13.6 (13.0-17.5) gm/dL Hct 40.8 (39.0-53.0) % MCV 95.2 (80.0-100.0) fL MCH 31.9 (25.0-35.0) pg MCHC 33.5 (31.0-37.0) g/dL RDW 13.8 (11.5-15.5) % Plt Count 87 L (150-450) k/uL MPV 11.2 Neutrophils % 75 % Lymphocytes % 12 % Monocytes % 10 % Eosinophils % 1 % Basophils % 0 % Neutrophils # 2.4 (1.3-7.7) k/uL Lymphocytes # 0.4 L (1.0-4.8) k/uL Monocytes # 0.3 (0-1.0) k/uL Eosinophils # 0.0 (0-0.7) k/uL Basophils # 0.0 (0-0.2) k/uL Manual Slide Review Performed RBC Morphology Normal PT 10.8 (10.0-12.5) sec INR 1.0 (<1.2) APTT 25.4 (22.0-30.0) sec Sodium (137-145) mmol/L Potassium (3.5-5.1) mmol/L Chloride (98-107) mmol/L Carbon Dioxide (22-30) mmol/L Anion Gap mmol/L BUN (9-20) mg/dL Creatinine (0.66-1.25) mg/dL Est GFR (CKD-EPI)AfAm (>60 ml/min/1.73 sqM) Est GFR (CKD-EPI)NonAf (>60 ml/min/1.73 sqM) Glucose (74-99) mg/dL POC Glucose (mg/dL) 158 H (70-110) mg/dL POC Glu [employer] Professor ID Arteaga, Evon Calcium (8.4-10.2) mg/dL Total Bilirubin (0.2-1.3) mg/dL AST (17-59) U/L ALT (4-49) U/L Alkaline Phosphatase (38-126) U/L Ammonia (<30) umol/L Troponin I (0.000-0.034) ng/mL Total Protein (6.3-8.2) g/dL Albumin (3.5-5.0) g/dL TSH (0.465-4.680) mIU/L Urine Color Urine Appearance (Clear) Urine pH (5.0-8.0) Ur Specific Rogers (1.001-1.035) Urine Protein (Negative) Urine Glucose (UA) (Negative) Urine Ketones (Negative) Urine Blood (Negative) Urine Nitrite (Negative) Urine Bilirubin (Negative) Urine Urobilinogen (<2.0) mg/dL Ur Leukocyte Esterase (Negative) Urine RBC (0-5) /hpf Urine WBC (0-5) /hpf Urine Mucus (None) /hpf Urine Opiates Screen (NotDetected) Ur Oxycodone Screen (NotDetected) Urine Methadone Screen (NotDetected) Ur Barbiturates Screen (NotDetected) U Tricyclic Antidepress (NotDetected) Ur Phencyclidine Scrn (NotDetected) Ur Amphetamines Screen (NotDetected) U Methamphetamines Scrn (NotDetected) U Benzodiazepines Scrn (NotDetected) Urine Cocaine Screen (NotDetected) U Marijuana (THC) Screen (NotDetected) Serum Alcohol mg/dL Influenza Type A (PCR) (Not Detectd) Influenza Type B (PCR) (Not Detectd) RSV (PCR) (Not Detectd) SARS-CoV-2 (PCR) (Not Detectd) 11/23/23 11/23/23 11/23/23 Range/Units 13:56 13:56 13:56 WBC (3.8-10.6) k/uL RBC (4.30-5.90) m/uL Hgb (13.0-17.5) gm/dL Hct (39.0-53.0) % MCV (80.0-100.0) fL MCH (25.0-35.0) pg MCHC (31.0-37.0) g/dL RDW (11.5-15.5) % Plt Count (150-450) k/uL MPV Neutrophils % % Lymphocytes % % Monocytes % % Eosinophils % % Basophils % % Neutrophils # (1.3-7.7) k/uL Lymphocytes # (1.0-4.8) k/uL Monocytes # (0-1.0) k/uL Eosinophils # (0-0.7) k/uL Basophils # (0-0.2) k/uL Manual Slide Review RBC Morphology PT (10.0-12.5) sec INR (<1.2) APTT (22.0-30.0) sec Sodium 130 L (137-145) mmol/L Potassium 4.0 (3.5-5.1) mmol/L Chloride 102 (98-107) mmol/L Carbon Dioxide 23 (22-30) mmol/L Anion Gap 5 mmol/L BUN 18 (9-20) mg/dL Creatinine 0.85 (0.66-1.25) mg/dL Est GFR (CKD-EPI)AfAm >90 (>60 ml/min/1.73 sqM) Est GFR (CKD-EPI)NonAf 81 (>60 ml/min/1.73 sqM) Glucose 168 H (74-99) mg/dL POC Glucose (mg/dL) (70-110) mg/dL POC Glu [employer] Professor ID Calcium 8.8 (8.4-10.2) mg/dL Total Bilirubin 0.9 (0.2-1.3) mg/dL AST 29 (17-59) U/L ALT 27 (4-49) U/L Alkaline Phosphatase 56 (38-126) U/L Ammonia (<30) umol/L Troponin I <0.012 (0.000-0.034) ng/mL Total Protein 5.9 L (6.3-8.2) g/dL Albumin 3.6 (3.5-5.0) g/dL TSH 0.817 (0.465-4.680) mIU/L Urine Color Urine Appearance (Clear) Urine pH (5.0-8.0) Ur Specific Rogers (1.001-1.035) Urine Protein (Negative) Urine Glucose (UA) (Negative) Urine Ketones (Negative) Urine Blood (Negative) Urine Nitrite (Negative) Urine Bilirubin (Negative) Urine Urobilinogen (<2.0) mg/dL Ur Leukocyte Esterase (Negative) Urine RBC (0-5) /hpf Urine WBC (0-5) /hpf Urine Mucus (None) /hpf Urine Opiates Screen (NotDetected) Ur Oxycodone Screen (NotDetected) Urine Methadone Screen (NotDetected) Ur Barbiturates Screen (NotDetected) U Tricyclic Antidepress (NotDetected) Ur Phencyclidine Scrn (NotDetected) Ur Amphetamines Screen (NotDetected) U Methamphetamines Scrn (NotDetected) U Benzodiazepines Scrn (NotDetected) Urine Cocaine Screen (NotDetected) U Marijuana (THC) Screen (NotDetected) Serum Alcohol <10 mg/dL Influenza Type A (PCR) (Not Detectd) Influenza Type B (PCR) (Not Detectd) RSV (PCR) (Not Detectd) SARS-CoV-2 (PCR) (Not Detectd) 11/23/23 11/23/23 11/23/23 Range/Units 14:10 14:10 14:58 WBC (3.8-10.6) k/uL RBC (4.30-5.90) m/uL Hgb (13.0-17.5) gm/dL Hct (39.0-53.0) % MCV (80.0-100.0) fL MCH (25.0-35.0) pg MCHC (31.0-37.0) g/dL RDW (11.5-15.5) % Plt Count (150-450) k/uL MPV Neutrophils % % Lymphocytes % % Monocytes % % Eosinophils % % Basophils % % Neutrophils # (1.3-7.7) k/uL Lymphocytes # (1.0-4.8) k/uL Monocytes # (0-1.0) k/uL Eosinophils # (0-0.7) k/uL Basophils # (0-0.2) k/uL Manual Slide Review RBC Morphology PT (10.0-12.5) sec INR (<1.2) APTT (22.0-30.0) sec Sodium (137-145) mmol/L Potassium (3.5-5.1) mmol/L Chloride (98-107) mmol/L Carbon Dioxide (22-30) mmol/L Anion Gap mmol/L BUN (9-20) mg/dL Creatinine (0.66-1.25) mg/dL Est GFR (CKD-EPI)AfAm (>60 ml/min/1.73 sqM) Est GFR (CKD-EPI)NonAf (>60 ml/min/1.73 sqM) Glucose (74-99) mg/dL POC Glucose (mg/dL) (70-110) mg/dL POC Glu Media [employer] Professor ID Calcium (8.4-10.2) mg/dL Total Bilirubin (0.2-1.3) mg/dL AST (17-59) U/L ALT (4-49) U/L Alkaline Phosphatase (38-126) U/L Ammonia <9 (<30) umol/L Troponin I (0.000-0.034) ng/mL Total Protein (6.3-8.2) g/dL Albumin (3.5-5.0) g/dL TSH (0.465-4.680) mIU/L Urine Color Yellow Urine Appearance Clear (Clear) Urine pH 5.5 (5.0-8.0) Ur Specific Rogers 1.028 (1.001-1.035) Urine Protein Trace H (Negative) Urine Glucose (UA) 3+ H (Negative) Urine Ketones Negative (Negative) Urine Blood Trace H (Negative) Urine Nitrite Negative (Negative) Urine Bilirubin Negative (Negative) Urine Urobilinogen <2.0 (<2.0) mg/dL Ur Leukocyte Esterase Negative (Negative) Urine RBC <1 (0-5) /hpf Urine WBC 1 (0-5) /hpf Urine Mucus Rare H (None) /hpf Urine Opiates Screen Not Detected (NotDetected) Ur Oxycodone Screen Not Detected (NotDetected) Urine Methadone Screen Not Detected (NotDetected) Ur Barbiturates Screen Not Detected (NotDetected) U Tricyclic Antidepress Not Detected (NotDetected) Ur Phencyclidine Scrn Not Detected (NotDetected) Ur Amphetamines Screen Not Detected (NotDetected) U Methamphetamines Scrn Not Detected (NotDetected) U Benzodiazepines Scrn Not Detected (NotDetected) Urine Cocaine Screen Not Detected (NotDetected) U Marijuana (THC) Screen Not Detected (NotDetected) Serum Alcohol mg/dL Influenza Type A (PCR) Not Detected (Not Detectd) Influenza Type B (PCR) Not Detected (Not Detectd) RSV (PCR) Not Detected (Not Detectd) SARS-CoV-2 (PCR) Detected A (Not Detectd) - EKG Data -: EKG Interpreted by Me EKG Comments: 12-lead Electrocardiogram Interpretation Note EKG was reviewed and interpreted by myself. 12-lead ECG performed at 1356 is interpreted by me as revealing normal sinus rhythm at a rate of 66 beats per minute. [place] is normal. [place] interval is 208 ms, QRS durations 120 ms, QTc is 416 ms.. There were no ST or T wave abnormalities to suggest myocardial isch emia or injury. R wave progression across the precordium was satisfactory. By my interpretation this EKG is non-diagnostic for acute ischemia. Disposition Clinical Impression: COVID-19, Subacute subdural hematoma Disposition: ADMITTED IP TO THIS HOSP Condition: Stable Time of Disposition: 16:00
[2023-11-23 15:23] LABS: Appearance,Urine Clear (Clear); Bilirubin,Urine Negative (Negative); Blood,Urine Trace (Negative); Color,Urine Yellow; Glucose,Urine (UA) 3+ (Negative); Ketones,Urine Negative (Negative); Leukocyte Esterase,Urine Negative (Negative); Mucus,Urine Rare /hpf; Nitrite,Urine Negative (Negative); PH, Urine 5.5 (5.0-8.0); Protein,Urine Trace (Negative); RBC,Urine <1 /hpf (0-5); Specific Gravity,Urine 1.028 (1.001-1.035); Urobilinogen,Urine <2.0 mg/dL (<2.0); WBC,Urine 1 /hpf (0-5)
--- NOTE | 2023-11-23 15:24 | XR ---
EXAMINATION TYPE: XR chest 2V DATE OF EXAM: 11/23/2023 COMPARISON: 09/15/2022 HISTORY: 83-year-old male confusion, altered mental status TECHNIQUE: AP and lateral views FINDINGS: Asymmetric elevation right hemidiaphragm. Heart borderline in size. Mild interstitial prominence is u nchanged. No consolidation or pleural effusion. IMPRESSION: Chronic changes including asymmetric elevation right hemidiaphragm. If concern for hemidiaphragmatic paralysis, fluoroscopic sniff test can be considered.
[2023-11-23 16:03] LABS: Amphetamine Screen,Urine Not Detected (NotDetected); Barbiturate Screen,Urine Not Detected (NotDetected); Benzodiazepines Screen,Urine Not Detected (NotDetected); Cocaine Screen,Urine Not Detected (NotDetected); Methadone Screen, Urine Not Detected (NotDetected); Opiate Screen,Urine Not Detected (NotDetected); Oxycodone Screen, Urine Not Detected (NotDetected); Phencyclidine Screen,Urine Not Detected (NotDetected); Tricyclic Antidepressant,Urine Not Detected (NotDetected); Urn Cannabinoid Scrn Not Detected (NotDetected)
[2023-11-23] MEDS ORDERED: NALOXONE 0.4 MG/ML 1 ML VIAL IV PRN ×2 (16:17→16:28)
[2023-11-23] MEDS ORDERED: ONDANSETRON 4 MG/2 ML VIAL IVP PRN (16:17)
[2023-11-23] MEDS ORDERED: ACETAMINOPHEN TAB 325 MG TAB PO PRN (16:17)
[2023-11-23] MEDS: SODIUM CHLORIDE 0.9% 1,000 ML IV SCH (17:07)
--- NOTE | 2023-11-23 17:10 | P.HPIM ---
History of Present Illness H&P Date: 11/23/23 Chief Complaint: syncope 83-year-old male who presents emergency department for a brief episode of confusion. Has hx of dementia, hypertension, hyperlipidemia, and hypothyroidism. Also used to have episodes of syncope of unknown cause. Had a heart monitor by cardiology which just found episodes of bradycardia and frequent PVCs. Echocardiogram from 2 years ago showed aortic stenosis, unable to grade at that time. He has been having cough productive of white phlegm for the past week. According to his this afternoon was at the dinner table when he spaced out and was trying to place a napkin under the plate. Lasted for 10 seconds. Does not recall the event. No falls. No loss of consciousness. States he pulled a back muscle 2 days ago trying to get out of the car but denies falling at that time. He also denies headache but his stated that he was grabbing onto his head yesterday, no visual changes, lightheadedness, dizziness, chest pain, palpitations, shortness of breath, or experiencing any numbness/tingling/weakness in his extremities. Last fall was in the spring, came to the ER for that, negative workup. He underwent a full evaluation in the emergency department. Chest x-ray negative for acute cardiopulmonary process. Head computed tomography scan showed 3 mm the left lateral convexity subdural hematoma, without mass effect or midline shift. Tested positive for covid. Review of Systems complete review of system performed, pertinent positives per HPI , otherwise negative Past Medical History Past Medical History: Hyperlipidemia, Hypertension, Thyroid Disorder Additional Past Medical History / Comment(s): hx of passing out had loop recorder placed. occasional heart burn. arthritis in hands see Dr Ga H&P History of Any Multi-Drug Resistant Organisms: None Reported Additional Past Surgical History / Comment(s): varicose vein surgery, cyst removal from hand, loop recorder placed approx 2019 unk device name Past Anesthesia/Blood Transfusion Reactions: No Reported Reaction Type of Cardiac Device: Loop Past Psychological History: No Psychological Hx Reported Smoking Status: Former smoker - Past Family History Mother Family Medical History: No Reported History Father Family Medical History: No Reported History Medications and Allergies Home Medications Medication Instructions Recorded Confirmed Type Levothyroxine Sodium [Synthroid] 100 mcg PO DAILY 10/18/19 11/23/23 History lisinopriL [Zestril] 20 mg PO DAILY 03/28/22 11/23/23 History Atorvastatin [Lipitor] 40 mg PO DAILY 11/23/23 11/23/23 History Galantamine HBr [Razadyne ER] 24 mg PO DAILY 11/23/23 11/23/23 History Memantine [Namenda] 10 mg PO BID 11/23/23 11/23/23 History Allergies Allergy/AdvReac Type Severity Reaction Status Date / Time Penicillins Allergy Swelling & Verified 11/23/23 15:51 Rash & cold Sweats Physical Exam Vitals: Vital Signs Temp Pulse Resp BP Pulse Ox 11/23/23 14:58 60 18 146/66 96 11/23/23 13:37 79 18 141/67 98 11/23/23 13:18 98.1 F 71 16 145/64 99 Intake and Output 11/23/23 11/23/23 11/23/23 06:59 14:59 22:59 Other: Weight 90.718 kg Constitutional: No acute distress, conversant, pleasant Eyes:Anicteric sclerae, moist conjunctiva, no lid-lag, PERRLA, ENMT: Oropharynx clear, no erythema, exudates Neck: Supple, FROM, no masses, or JVD, No carotid bruits, No thyromegaly Lungs: Clear to auscultation, Clear to percussion, Normal respiratory effort, no accessory muscle use Cardiovascular: Heart regular in rate and rhythm, No murmurs, gallops, or rubs, No peripheral edema Abdominal: Soft, Nontender, no guarding, rebound or rigidity, Normoactive bowel sounds, No hepatomegaly, No splenomegaly, No palpable mass Skin: Normal temperature, tone, texture, turgor, no induration, No subcutaneous nodules, No rash, lesions, No ulcers Extremities: No digital cyanosis, No clubbing, Pedal pulses intact and symmetrical, Radial pulses intact and symmetrical, No calf tenderness Psychiatric: Alert and oriented to person, place and time, appropriate affect, intact judgement Neuro: Muscles Strength 5/5 in all 4 extremities, Sensation to light touch grossly present throughout, Cranial nerves II-XII grossly intact, no focal sensory deficits Results CBC & Chem 7: 11/23/23 13:56 11/23/23 13:56 Labs: Abnormal Lab Results - Last 24 Hours (Table) 0811/23/23 11/23/23 Range/Units 13:56 13:56 13:56 WBC 3.2 L (3.8-10.6) k/uL RBC 4.29 L (4.30-5.90) m/uL Plt Count 87 L (150-450) k/uL Lymphocytes # 0.4 L (1.0-4.8) k/uL Sodium 130 L (137-145) mmol/L Glucose 168 H (74-99) mg/dL POC Glucose (mg/dL) 158 H (70-110) mg/dL Total Protein 5.9 L (6.3-8.2) g/dL Urine Protein (Negative) Urine Glucose (UA) (Negative) Urine Blood (Negative) Urine Mucus (None) /hpf SARS-CoV-2 (PCR) (Not Detectd) 11/23/23 11/23/23 Range/Units 14:10 14:58 WBC (3.8-10.6) k/uL RBC (4.30-5.90) m/uL Plt Count (150-450) k/uL Lymphocytes # (1.0-4.8) k/uL Sodium (137-145) mmol/L Glucose (74-99) mg/dL POC Glucose (mg/dL) (70-110) mg/dL Total Protein (6.3-8.2) g/dL Urine Protein Trace H (Negative) Urine Glucose (UA) 3+ H (Negative) Urine Blood Trace H (Negative) Urine Mucus Rare H (None) /hpf SARS-CoV-2 (PCR) Detected A (Not Detectd) Assessment and Plan Plan: Spacing out/ acute encephalopathy likely secondary to subdural hematoma, subacute Consult neurology, rule out seizures EEG Neuro checks every 4 hours Covid 19 with no shortness of breath or hypoxia Supportive care Essential hypertension Stable Resume lisinopril Chronic Dementia Hypothyroidism Hyperlipidemia Check TSH Resume meds Admit to inpatient
[2023-11-23] MEDS: MEMANTINE 10 MG TAB PO SCH (21:24)
[2023-11-24] MEDS: LEVOTHYROXINE 100 MCG TAB PO SCH (06:13)
[2023-11-24 08:31] LABS: HCT 39.7 % (39.0-53.0); MCH 31.6 pg (25.0-35.0); MCHC 32.7 g/dL (31.0-37.0); MCV 96.7 fL (80.0-100.0); Mean Platelet Volume 11.6; RBC 4.11 m/uL (4.30-5.90); RDW 13.4 % (11.5-15.5); WBC 2.3 k/uL (3.8-10.6)
[2023-11-24] MEDS: PANTOPRAZOLE 40 MG/10 ML VIAL IV SCH (08:33)
[2023-11-24] MEDS: lisinopriL 20 MG TAB PO SCH (08:33)
[2023-11-24] MEDS: ATORVASTATIN 40 MG TAB PO SCH (08:33)
[2023-11-24 08:57] LABS: ALT 22 U/L (4-49); AST 29 U/L (17-59); African American GFR (CKD) >90 (>60 ml/min/1.73 sqM); Albumin 3.3 g/dL (3.5-5.0); Alkaline Phosphatase 52 U/L (38-126); Anion Gap 2 mmol/L; Blood Urea Nitrogen 16 mg/dL (9-20); Calcium 8.5 mg/dL (8.4-10.2); Carbon Dioxide 24 mmol/L (22-30); Chloride 108 mmol/L (98-107); Glucose 91 mg/dL (74-99); Non-African American GFR(CKD) 81 (>60 ml/min/1.73 sqM); Potassium 4.2 mmol/L (3.5-5.1); Sodium 134 mmol/L (137-145); Total Bilirubin 0.9 mg/dL (0.2-1.3); Total Protein 5.8 g/dL (6.3-8.2)
[2023-11-24 10:23] LABS: Band Neutrophils % 1 %; Lymphocytes # (M) 0.64 k/uL (1.0-4.8); Monocytes # (M) 0.39 k/uL (0-1.0); Neutrophils % (M) 54 %; Nucleated Red Blood Cells 0 /100 WBC (0-0); RBC Morphology Normal; Total Cells Counted 100
[2023-11-24 10:24] LABS: Platelet Count 95 k/uL (150-450)
--- NOTE | 2023-11-24 10:43 | CT ---
EXAMINATION TYPE: CT brain wo con DATE OF EXAM: 11/24/2023 COMPARISON: 11/23/2023 HISTORY: Subacute SDH CT DLP: 1188.4 mGycm Automated exposure control for dose reduction was used. FINDINGS: Moderate degenerative change with hypoattenuation the white matter most typical remote white matter i schemia. Punctate calcification left basal ganglia stable. Moderate intracranial atherosclerotic velásquez ges. No midline shift or mass effect. Interval improvement along the left cerebral convexity with no evide nce of acute hemorrhage. Craniocervical junction maintained. Calvarium intact. Changes of chronic sinusitis. IMPRESSION: 1. NO SIZABLE ACUTE INTRACRANIAL HEMORRHAGE.. SUBACUTE PREVIOUSLY REPORTED SUBDURAL HEMATOMA DEMO NSTRATED INTERVAL IMPROVEMENT. NO MASS EFFECT..
--- NOTE | 2023-11-24 13:35 | P.CRDCN ---
History of Present Illness Consult date: 11/24/23 Reason for Consult (text): Syncope History of present illness: This is an 83-year-old male patient of Dr. Ga with past medical history of hypertension, NSVT, mild CAD, obesity, hypothyroidism. We have been asked to evaluate the patient for syncope. Patient gives history that he has had a cough for about 1 week. He had a episode of loss of consciousness lasting about 10 seconds witnessed by his . Patient apparently was sitting at the table when this occurred. No injuries. He denies having any syncopal episodes in the past. No lightheadedness or dizziness. Patient denies having chest pain. Blood pressure 135/64, heart rate 65, pulse ox 95% on room air. EKG: Sinus rhythm at [address] of the brain suspicious for subacute subdural hematoma along the left lateral convexity. Laboratory studies: WBC 2.3, hemoglobin 13, platelet count 95. Creatinine 0.87. Troponin negative x 3. COVID-19 detected. COVID-19 Home cardiac medications: Lipitor 40 mg daily, lisinopril 20 mg daily, levothyroxine 100 mcg daily. Review Of Systems: At the time of my exam: CONSTITUTIONAL: Denies fever or chills. HEENT: Denies blurred vision, vision changes, or eye pain. Denies hemoptysis CARDIOVASCULAR: Denies chest pain. Denies orthopnea. Denies PND. Denies palpitations RESPIRATORY: Denies shortness of breath. GASTROINTESTINAL: Denies abdominal pain. Denies nausea or vomiting. HEMATOLOGIC: Denies bleeding disorders. GENITOURINARY: Denies any blood in urine. SKIN: Denies puritis. Denies rash. Physical examination: Gen: This is a 83-year-old male in no acute distress VS: reviewed HEENT: Head is atraumatic, normocephalic. Pupils equal, round. Sclerae is anicteric. NECK: Supple. No JVD. LUNGS: Clear to auscultation. No wheezes or rhonchi. No intercostal retractions. HEART: Regular rate and rhythm. 4/6 systolic murmur at the apex. ABDOMEN: Soft No tenderness. EXTREMITIES: No pedal edema. No calf tenderness. NEUROLOGICAL: Patient is awake, alert and oriented x3. Assessment: COVID-19 Syncopal episode rule out cardiac cause Subacute subdural hematoma Hypertension NSVT Mild CAD Obesity Hypothyroidism Plan: Resume patient's home cardiac medications Continue telemetry monitoring Obtain orthostatic vital signs Obtain 2-D echocardiogram and Doppler study to assess cardiac structure and function Ambulate patient. Neurology workup Further recommendations to follow based upon clinical course Thank you kindly for this consultation. Nurse practitioner note has been reviewed, I agree with documented findings and plan of care. Patient was seen and examined. Past Medical History Past Medical History: Hyperlipidemia, Hypertension, Thyroid Disorder Additional Past Medical History / Comment(s): hx of passing out had loop recorder placed. occasional heart burn. arthritis in hands see Dr Ga H&P History of Any Multi-Drug Resistant Organisms: None Reported Additional Past Surgical History / Comment(s): varicose vein surgery, cyst removal from hand, loop recorder placed approx 2019 un device name Past Anesthesia/Blood Transfusion Reactions: No Reported Reaction Type of Cardiac Device: Loop Past Psychological History: No Psychological Hx Reported Smoking Status: Former smoker Past Alcohol Use History: Daily Additional Past Alcohol Use History / Comment(s): quit smoking years ago moderate smoker. daily liquor Past Drug Use History: None Reported - Past Family History Mother Family Medical History: No Reported History Father Family Medical History: No Reported History Medications and Allergies Home Medications Medication Instructions Recorded Confirmed Type Levothyroxine Sodium [Synthroid] 100 mcg PO DAILY 10/18/19 11/23/23 History lisinopriL [Zestril] 20 mg PO DAILY 03/28/22 11/23/23 History Atorvastatin [Lipitor] 40 mg PO DAILY 11/23/23 11/23/23 History Galantamine HBr [Razadyne ER] 24 mg PO DAILY 11/23/23 11/23/23 History Memantine [Namenda] 10 mg PO BID 11/23/23 11/23/23 History Allergies Allergy/AdvReac Type Severity Reaction Status Date / Time Penicillins Allergy Swelling & Verified 11/23/23 15:51 Rash & cold Sweats Physical Exam Vitals: Vital Signs Temp Pulse Pulse Resp BP BP Pulse Ox 11/24/23 04:00 98.0 F 65 17 135/64 95 11/24/23 02:00 64 17 11/23/23 23:58 97.7 F 64 17 147/66 100 11/23/23 20:50 97.8 F 62 19 141/61 99 11/23/23 20:00 62 17 11/23/23 18:29 98.6 F 59 L 18 97 11/23/23 16:47 65 18 136/90 97 11/23/23 14:58 60 18 146/66 96 11/23/23 13:37 79 18 141/67 98 11/23/23 13:18 98.1 F 71 16 145/64 99 Intake and Output 11/23/23 11/24/23 11/24/23 22:59 06:59 14:59 Intake Total 120 Balance 120 Intake: Oral 120 Other: Voiding Method Toilet Toilet Weight 90.718 kg 90.3 kg Results 11/24/23 07:13 11/24/23 07:13 Cardiac Enzymes 11/23/23 11/23/23 11/23/23 Range/Units 13:56 13:56 16:58 AST 29 (17-59) U/L Troponin I <0.012 <0.012 (0.000-0.034) ng/mL 11/23/23 11/24/23 Range/Units 20:37 07:13 AST 29 (17-59) U/L Troponin I <0.012 (0.000-0.034) ng/mL Coagulation 11/23/23 Range/Units 13:56 PT 10.8 (10.0-12.5) sec APTT 25.4 (22.0-30.0) sec CBC 11/23/23 11/24/23 Range/Units 13:56 07:13 WBC 3.2 L 2.3 L (3.8-10.6) k/uL RBC 4.29 L 4.11 L (4.30-5.90) m/uL Hgb 13.6 13.0 (13.0-17.5) gm/dL Hct 40.8 39.7 (39.0-53.0) % Plt Count 87 L (150-450) k/uL Comprehensive Metabolic Panel 11/23/23 11/24/23 Range/Units 13:56 07:13 Sodium 130 L 134 L (137-145) mmol/L Potassium 4.0 4.2 (3.5-5.1) mmol/L Chloride 102 108 H (98-107) mmol/L Carbon Dioxide 23 24 (22-30) mmol/L BUN 18 16 (9-20) mg/dL Creatinine 0.85 0.87 (0.66-1.25) mg/dL Glucose 168 H 91 (74-99) mg/dL Calcium 8.8 8.5 (8.4-10.2) mg/dL AST 29 29 (17-59) U/L ALT 27 22 (4-49) U/L Alkaline Phosphatase 56 52 (38-126) U/L Total Protein 5.9 L 5.8 L (6.3-8.2) g/dL Albumin 3.6 3.3 L (3.5-5.0) g/dL Current Medications Generic Name Dose Route Start Last Admin Trade Name Freq PRN Reason Stop Dose Admin Acetaminophen 650 mg 11/23/23 16:17 Acetaminophen Tab 325 Mg Tab PO Q6HR PRN Mild Pain or Fever > 100.5 Atorvastatin Calcium 40 mg 11/24/23 09:00 11/24/23 08:33 Atorvastatin 40 Mg Tab PO 40 mg DAILY ELOY Administration Sodium Chloride 1,000 mls @ 75 mls/hr 11/23/23 16:30 11/24/23 06:13 Saline 0.9% IV 75 mls/hr .[id number] ELOY Administration Levothyroxine Sodium 100 mcg 11/24/23 06:30 11/24/23 06:13 Levothyroxine 100 Mcg Tab PO 100 mcg 0630 ELOY Administration Lisinopril 20 mg 11/24/23 09:00 11/24/23 08:33 Lisinopril 20 Mg Tab PO 20 mg DAILY ELOY Administration Memantine 10 mg 11/23/23 21:00 11/24/23 08:33 Memantine 10 Mg Tab PO 10 mg BID ELOY Administration Naloxone HCl 0.2 mg 11/23/23 16:17 Naloxone 0.4 Mg/Ml 1 Ml Vial IV Q2M PRN Opioid Reversal Naloxone HCl 0.2 mg 11/23/23 16:28 Naloxone 0.4 Mg/Ml 1 Ml Vial IV Q2M PRN Opioid Reversal Ondansetron HCl 4 mg 11/23/23 16:17 Ondansetron 4 Mg/2 Ml Vial IVP Q8HR PRN Nausea And Vomiting Pantoprazole Sodium 40 mg 11/24/23 09:00 11/24/23 08:33 Pantoprazole 40 Mg/10 Ml Vial IV 40 mg DAILY ELOY Administration Intake and Output 11/23/23 11/24/23 11/24/23 22:59 06:59 14:59 Intake Total 120 Balance 120 Intake: Oral 120 Other: Voiding Method Toilet Toilet Weight 90.718 kg 90.3 kg 11/24/23 07:13 11/24/23 07:13
--- NOTE | 2023-11-24 14:27 | P.PN ---
Subjective Progress Note Date: 11/24/23 Principal diagnosis: syncope patient doing well, no further episodes of confusion or syncope. Denies having any headaches, no chest pain or shortness of breath. no fevers or chills. Objective - Vital Signs Vital signs: Vital Signs Temp 98.0 F 11/24/23 04:00 Pulse 65 11/24/23 04:00 Resp 17 11/24/23 04:00 BP 135/64 11/24/23 04:00 Pulse Ox 95 11/24/23 04:00 FiO2 Intake & Output 11/23/23 11/24/23 11/24/23 18:59 06:59 18:59 Intake Total 120 Balance 120 Weight 90.718 kg 90.3 kg Intake: Oral 120 Other: Voiding Method Toilet - Exam Constitutional: No acute distress, conversant, pleasant Eyes:Anicteric sclerae, moist conjunctiva, no lid-lag, PERRLA, ENMT: Oropharynx clear, no erythema, exudates Neck: Supple, FROM, no masses, or JVD, No carotid bruits, No thyromegaly Lungs: Clear to auscultation, Clear to percussion, Normal respiratory effort, no accessory muscle use Cardiovascular: Heart regular in rate and rhythm, No murmurs, gallops, or rubs, No peripheral edema Abdominal: Soft, Nontender, no guarding, rebound or rigidity, Normoactive bowel sounds, No hepatomegaly, No splenomegaly, No palpable mass Skin: Normal temperature, tone, texture, turgor, no induration, No subcutaneous nodules, No rash, lesions, No ulcers Extremities: No digital cyanosis, No clubbing, Pedal pulses intact and symm etrical, Radial pulses intact and symmetrical, No calf tenderness Psychiatric: Alert and oriented to person, place and time, appropriate affect, intact judgement Neuro: Muscles Strength 5/5 in all 4 extremities, Sensation to light touch grossly present throughout, Cranial nerves II-XII grossly intact, no focal sensory deficits - Labs CBC & Chem 7: 11/24/23 07:13 11/24/23 07:13 Labs: Abnormal Lab Results - Last 24 Hours (Table) 11/23/23 11/23/23 11/23/23 Range/Units 13:56 13:56 14:10 WBC 3.2 L (3.8-10.6) k/uL RBC 4.29 L (4.30-5.90) m/uL Plt Count 87 L (150-450) k/uL Neutrophils # (Manual) (1.3-7.7) k/uL Lymphocytes # 0.4 L (1.0-4.8) k/uL Lymphocytes # (Manual) (1.0-4.8) k/uL Sodium 130 L (137-145) mmol/L Chloride (98-107) mmol/L Glucose 168 H (74-99) mg/dL Total Protein 5.9 L (6.3-8.2) g/dL Albumin (3.5-5.0) g/dL Urine Protein (Negative) Urine Glucose (UA) (Negative) Urine Blood (Negative) Urine Mucus (None) /hpf SARS-CoV-2 (PCR) Detected A (Not Detectd) 11/23/23 11/24/23 11/24/23 Range/Units 14:58 07:13 07:13 WBC 2.3 L (3.8-10.6) k/uL RBC 4.11 L (4.30-5.90) m/uL Plt Count 95 L (150-450) k/uL Neutrophils # (Manual) 1.20 L (1.3-7.7) k/uL Lymphocytes # (1.0-4.8) k/uL Lymphocytes # (Manual) 0.64 L (1.0-4.8) k/uL Sodium 134 L (137-145) mmol/L Chloride 108 H (98-107) mmol/L Glucose (74-99) mg/dL Total Protein 5.8 L (6.3-8.2) g/dL Albumin 3.3 L (3.5-5.0) g/dL Urine Protein Trace H (Negative) Urine Glucose (UA) 3+ H (Negative) Urine Blood Trace H (Negative) Urine Mucus Rare H (None) /hpf SARS-CoV-2 (PCR) (Not Detectd) Assessment and Plan Plan: Spacing out/ acute encephalopathy likely secondary to subdural hematoma, subacute Syncope, history of nonsustained V. tach Cardiology evaluated patient, ordered an echocardiogram Head CT was repeated today, showing stable subdural hematoma, no expansion of bleeding. Awaiting neurology evaluation, rule out seizures EEG Neuro checks every 4 hours Covid 19 with no shortness of breath or hypoxia Supportive care Essential hypertension Stable Resume lisinopril Chronic Dementia Hypothyroidism Hyperlipidemia Check TSH Resume meds
[2023-11-24] MEDS: PANTOPRAZOLE 40 MG/10 ML VIAL ONE (15:05)
--- NOTE | 2023-11-24 16:31 | P.CNNES ---
History of Present Illness Consult date: 11/24/23 Requesting physician: Rigo Gordon Reason for Consult: subacute subdural hemoatoma History of Present Illness: This is an 83-year-old gentleman who presents to the emergency department because of brief episode of confusion. Patient is a poor historian. History is obtained from medical record. Per the ED's note seems to the patient was sitting at lunch table and almost lost consciousness. Patient was not respon ding and was moving a napkin under a plate. The episode lasted 10 seconds. Patient denies of any headache, any head trauma, any falls, denies being on any anticoagulation or antiplatelet. He denies any focal weakness, numbness, visual disturbance. He did acknowledge that he was having coughs. He denies any history of stroke. Some other workup during this hospital visit consisted of: I reviewed the blood test White blood cell is 3.2 thousand on presentation Platelet is 87,000 Ammonia is less than 9 TSH is 0.817 UDS is negative. Urine alcohol <[address] of the head is reported as findings suspicious for a trace 3 mm thick subacute subdural hematoma along the left lateral convexity. No mass effect or midline shift. No acute intracranial abnormality seen. I personally reviewed the CT and agree there is no acute process in the regarding this subacute subdural if any subacute to chronic that seems questionable Repeat CT of the head is reported as no sizable acute intracranial hemorrhage. Subacute previously reported subdural hematoma as demonstrated and interval improvement. No mass effect. I personally reviewed the repeat CT and I agree there does not appear to be any acute or subacute bleed. Review of Systems Limited but positive and negative as per HPI. Past Medical History Past Medical History: Hyperlipidemia, Hypertension, Thyroid Disorder Additional Past Medical History / Comment(s): hx of passing out had loop recorder placed. occasional heart burn. arthritis in hands see Dr Ga H&P History of Any Multi-Drug Resistant Organisms: None Reported Additional Past Surgical History / Comment(s): varicose vein surgery, cyst removal from hand, loop recorder placed approx 2019 unk device name Past Anesthesia/Blood Transfusion Reactions: No Reported Reaction Type of Cardiac Device: Loop Past Psychological History: No Psychological Hx Reported Smoking Status: Former smoker Past Alcohol Use History: Daily Additional Past Alcohol Use History / Comment(s): quit smoking years ago moderate smoker. daily liquor Past Drug Use History: None Reported - Past Family History Mother Family Medical History: No Reported History Father Family Medical History: No Reported History Medications and Allergies Home Medications Medication Instructions Recorded Confirmed Type Levothyroxine Sodium [Synthroid] 100 mcg PO DAILY 10/18/19 11/23/23 History lisinopriL [Zestril] 20 mg PO DAILY 03/28/22 11/23/23 History Atorvastatin [Lipitor] 40 mg PO DAILY 11/23/23 11/23/23 History Galantamine HBr [Razadyne ER] 24 mg PO DAILY 11/23/23 11/23/23 History Memantine [Namenda] 10 mg PO BID 11/23/23 11/23/23 History Allergies Allergy/AdvReac Type Severity Reaction Status Date / Time Penicillins Allergy Swelling & Verified 11/23/23 15:51 Rash & cold Sweats Physical Examination - Vital Signs Vital Signs: Vital Signs Temp Pulse Pulse Pulse Resp BP BP 11/24/23 12:00 98 F 58 L 16 131/60 11/24/23 08:50 98.5 F 74 18 109/53 11/24/23 04:00 98.0 F 65 17 135/64 11/24/23 02:00 64 17 11/23/23 23:58 97.7 F 64 17 147/66 11/23/23 20:50 97.8 F 62 19 141/61 11/23/23 20:00 62 17 11/23/23 18:29 98.6 F 59 L 18 11/23/23 16:47 65 18 136/90 Pulse Ox 11/24/23 12:00 100 11/24/23 08:50 98 11/24/23 04:00 95 11/24/23 02:00 11/23/23 23:58 100 11/23/23 20:50 99 11/23/23 20:00 11/23/23 18:29 97 11/23/23 16:47 97 Intake and Output 11/24/23 11/24/23 11/24/23 06:59 14:59 22:59 Intake Total 240 Balance 240 Intake: Oral 240 Other: Voiding Method Toilet Toilet Weight 90.3 kg GENERAL: The patient is sitting up in bed and is not in acute distress. HENT: Supple neck. NEUROLOGICAL: The patient is drowsy but is awake. Voice. He is oriented to self and with options he correctly stated that he is in the hospital. On the second try he correctly stated the correct current year. Appears confused at times. He is following few simple commands. No aphasia from limited language The pupils are round equal reactive to light. The pupils are round 3 to 4 mm bilaterally. Visual montalvo are full to confrontation. Extraocular movements intact no nystagmus. No facial weakness. No dysarthria. Tongue is midline move [id number] without difficulty Motor is is left in all extremities above gravity and appears equal. Normal tone and bulk. Sensation is normal to touch Reflexes 2 positive throughout Plantars are mute bilaterally Results - Laboratory Findings CBC and BMP: 11/24/23 07:13 11/24/23 07:13 Abnormal Lab Findings: Abnormal Labs 11/23/23 11/23/23 11/23/23 13:56 13:56 13:56 WBC 3.2 L RBC 4.29 L Plt Count 87 L Neutrophils # (Manual) Lymphocytes # 0.4 L Lymphocytes # (Manual) Sodium 130 L Chloride Glucose 168 H POC Glucose (mg/dL) 158 H Total Protein 5.9 L Albumin Urine Protein Urine Glucose (UA) Urine Blood Urine Mucus SARS-CoV-2 (PCR) 11/23/23 11/23/23 11/24/23 14:10 14:58 07:13 WBC 2.3 L RBC 4.11 L Plt Count 95 L Neutrophils # (Manual) 1.20 L Lymphocytes # Lymphocytes # (Manual) 0.64 L Sodium Chloride Glucose POC Glucose (mg/dL) Total Protein Albumin Urine Protein Trace H Urine Glucose (UA) 3+ H Urine Blood Trace H Urine Mucus Rare H SARS-CoV-2 (PCR) Detected A 11/24/23 07:13 WBC RBC Plt Count Neutrophils # (Manual) Lymphocytes # Lymphocytes # (Manual) Sodium 134 L Chloride 108 H Glucose POC Glucose (mg/dL) Total Protein 5.8 L Albumin 3.3 L Urine Protein Urine Glucose (UA) Urine Blood Urine Mucus SARS-CoV-2 (PCR) Assessment and Plan Assessment: This is an 83-year-old gentleman who presents because of confusion. Initial CT of the head shows just 3 mm subacute subdural hematoma along the left lateral convexity. No mass effect or midline shift. Repeat CT of the head shows resolution. Denies any fall or any head trauma. Patient is not on any antiplatelet or anticoagulation. He does acknowledge that he has been coughing. He has +ve SARS-CoV-2 Suspicious subacute left lateral convexity subdural hematoma seems resolved on the repeat CT. Altered mental status change due to hypoxic encephalopathy/pneumonia. Has SARS-CoV-2 +ve SARS-COV-2 PCR Acute on chronic thrombocytopenia Leukopenia Plan: I Ordered MRI of the brain with and without Primary team ordered routine EEG: Prelmiinary is negative for seizure. Ordered vitamin B12, folate For the rest of the medical management the primary and other specialist Thank you for the consultation. Time with Patient: Greater than 30
[2023-11-25 09:29] LABS: Basophils % (A) 1 %; Eosinophils % (A) 1 %; HCT 39.2 % (39.0-53.0); HGB 12.8 gm/dL (13.0-17.5); Hypochromasia Slight; Lymphocytes # (A) 0.8 k/uL (1.0-4.8); Lymphocytes % (A) 21 %; MCH 31.6 pg (25.0-35.0); MCHC 32.5 g/dL (31.0-37.0); MCV 97.1 fL (80.0-100.0); Mean Platelet Volume 10.6; Monocytes # (A) 0.3 k/uL (0-1.0); Monocytes % (A) 9 %; Neutrophils # (A) 2.4 k/uL (1.3-7.7); Neutrophils % (A) 67 %; RBC 4.04 m/uL (4.30-5.90); RDW 13.3 % (11.5-15.5); WBC 3.6 k/uL (3.8-10.6)
[2023-11-25 09:35] LABS: Platelet Count 94 k/uL (150-450)
[2023-11-25 10:12] LABS: African American GFR (CKD) >90 (>60 ml/min/1.73 sqM); Anion Gap 4 mmol/L; Blood Urea Nitrogen 16 mg/dL (9-20); Calcium 8.8 mg/dL (8.4-10.2); Carbon Dioxide 25 mmol/L (22-30); Chloride 109 mmol/L (98-107); Glucose 100 mg/dL (74-99); Non-African American GFR(CKD) 80 (>60 ml/min/1.73 sqM); Potassium 3.9 mmol/L (3.5-5.1); Sodium 138 mmol/L (137-145)
--- NOTE | 2023-11-25 10:14 | EEG ---
ELECTROENCEPHALOGRAM REPORT CLINICAL HISTORY: This is an 83-year-old gentleman with altered mental status. The video EEG was obtained to evaluate for seizure epileptiform activity. RELEVANT MEDICATION: The patient is not on any antiseizure medication. EEG TYPE: This is a routine 21-channel EEG with video using the 10/20 electrode placement system. DESCRIPTION: Wakefulness and drowsiness were obtained. During awake state, the background consisted of low voltage of 7 to 8 hertz. There was no physiological stage 2 sleep architecture. There was no focal slowing. Interictal and ictal were none. ACTIVATION PROCEDURE: Photic stimulation and hyperventilation were not performed. CLINICAL INTERPRETATION: This was an abnormal routine EEG. The background slowing was suggestive of mild encephalopathy. Otherwise, there were no focal slowing, epileptiform discharge or seizure on the EEG. Clinical correlation is recommended. MMODL / IJN: [id number] / MTDD
--- NOTE | 2023-11-25 11:20 | P.PN ---
Subjective Progress Note Date: 11/25/23 Patient did not have any further episodes of syncope. Continues to feel poorly from the COVID infection. Patient had an echocardiogram results are pending at this time. Labs show that the white cell count and platelet count are coming up renal functions are normal On exam: Vital signs are stable there is ventricular venous distention chest exam reveals good air entry bilaterally heart exam reveals first and second heart sounds no gallop abdominal soft exam extremities did not reveal any edema peripheral pulses are felt Assessment and plan: Syncope rule out cardiac causes COVID-19 infection Most of patient's symptoms are probably related to the acute viral infection. Will follow the echo results. When patient is medically stable he will be discharged home and I will pursue his syncope workup as outpatient including event monitor if necessary and the stress test Objective - Vital Signs Vital signs: Vital Signs Temp 97.6 F 11/25/23 08:41 Pulse 54 L 11/25/23 08:41 Resp 16 11/25/23 08:41 BP 129/60 11/25/23 08:41 Pulse Ox 97 11/25/23 08:41 FiO2 Intake & Output 11/24/23 11/25/23 11/25/23 18:59 06:59 18:59 Intake Total 1710 118 Balance 1710 118 Weight 91.4 kg Intake: Intake, IV Titration 750 Amount Sodium Chloride 0.9% 1, 750 000 ml @ 75 mls/hr IV . [id number] [facility] Rx#:[id number] Oral 960 118 Other: Voiding Method Toilet Toilet # Voids 3 3 2 - Labs CBC & Chem 7: 11/25/23 08:38 11/25/23 08:38 Labs: Abnormal Lab Results - Last 24 Hours (Table) 11/25/23 11/25/23 Range/Units 08:38 08:38 WBC 3.6 L (3.8-10.6) k/uL RBC 4.04 L (4.30-5.90) m/uL Hgb 12.8 L (13.0-17.5) gm/dL Plt Count 94 L (150-450) k/uL Lymphocytes # 0.8 L (1.0-4.8) k/uL Chloride 109 H (98-107) mmol/L Glucose 100 H (74-99) mg/dL
--- NOTE | 2023-11-25 12:32 | US ---
EXAMINATION TYPE: US carotid duplex BILAT DATE OF EXAM: 11/25/2023 COMPARISON: 10/19/19 CLINICAL INDICATION: Male, 83 years old with history of syncope TECHNIQUE: Carotid duplex ultrasound examination. Indirect Doppler criteria was utilized. FINDINGS: EXAM MEASUREMENTS: RIGHT: Peak Systolic Velocity (PSV) cm/sec ----- Right CCA: 76.9 ----- Right ICA: 68.0 ----- Right ECA: 68.0 ICA/CCA ratio: 0.9 RIGHT: End Diastole cm/sec ----- Right CCA: 8.6 ----- Right ICA: 10.9 ----- Right ECA: 3.2 LEFT: Peak Systolic Velocity (PSV) cm/sec ----- Left CCA: 72.4 ----- Left ICA: 82.7 ----- Left ECA: 89.2 ICA/CCA ratio: 1.1 LEFT: End Diastole cm/sec ----- Left CCA: 10.9 ----- Left ICA: 6.3 ----- Left ECA: 6.3 VERTEBRALS (direction of flow): Right Vertebral: Antegrade Left Vertebral: Antegrade Rhythm: Normal, but with arrhythmia seen while imaging the left ECA KILN TENDER NOTES: No elevated velocities IMPRESSION: No hemodynamically significant internal carotid artery stenosis on either side. Criteria for Assigning % of Stenosis / Diameter reduction (Estimation based on the indirect measurements of the internal carotid artery velocities (ICA PSV). 1. Normal (no stenosis)=ICA PSV < 125 cm/s: ratio < 2.0: ICA EDV<40 cm/s. 2. Less than 50% stenosis=ICA PSV < 125 cm/s: ratio < 2.0: ICA EDV<40 cm/s. 3. 50 to 69% stenosis=ICA PSV of 125 to 230 cm/s: ration 2.0 ? 4.0: ICA EDV 40-100 cm/s. 4. Greater than 70% stenosis to near occlusion= ICA PSV > 230 cm/s: ratio > 4.0: ICA EDV > 100 cm/s. 5. Near occlusion= ICA PSV velocities may be low or undetectable: variable ratio and ICA EDV. 6. Total occlusion=unable to detect flow.
--- NOTE | 2023-11-25 13:09 | CA ---
Transthoracic Echo Report Name: Baljinder Cortes Age: 83 Gender: M : 1940 Exam Date: 11/24/2023 14:58 Exam Location: [facility] Ht (in): 70 Wt (lb): 199 Ordering Physician: Tammy Stoll Attending/Referring Phys: [id number], Jerman Vice President Of Development Pat Winchester RDCS Procedure CPT: Indications: LVF Cardiac Hx: Technical Quality: Technically difficult study Contrast 1: Definity Total Dose (mL): 2 Contrast 2: Total Dose (mL): MEASUREMENTS (Male / Female) Normal Values 2D ECHO LVOT Diameter 2.1 cm LV Diastolic Volume MOD BP 113.3 cm??? 67 - 155 / 56 - 104 cm??? LV Systolic Volume MOD BP 40.4 cm??? 22 - 58 / 19 - 49 cm??? LV Ejection Fraction MOD BP 64.4 % >= 55 % LV Cardiac Index MOD BP 2259.1 cm???/min???m??? LV Diastolic Volume MOD 4C 116.1 cm??? LV Systolic Volume MOD 4C 41.3 cm??? LV Ejection Fraction MOD 4C 64.4 % LV Cardiac Index MOD 4C 2317.1 cm???/min???m??? LV Diastolic Length 4C 8.2 cm LV Systolic Length 4C 6.2 cm LV Diastolic Volume MOD 2C 109.9 cm??? LV Systolic Volume MOD 2C 38.7 cm??? LV Ejection Fraction MOD 2C 64.8 % LV Cardiac Index MOD 2C 2205.4 cm???/min???m??? LV Diastolic Length 2C 8.2 cm LV Systolic Length 2C 6.4 cm Ascending Aorta Diameter 3.2 cm DOPPLER AV Peak Velocity 282.0 cm/s AV Peak Gradient 31.8 mmHg AV Mean Velocity 200.1 cm/s AV Mean Gradient 17.7 mmHg AV Velocity Time Integral 68.8 cm LVOT Peak Velocity 130.9 cm/s LVOT Peak Gradient 6.9 mmHg LVOT Velocity Time Integral 30.8 cm LVOT Stroke Volume 111.5 cm??? LVOT Stroke Volume Index 53.5 ml/m??? LVOT Cardiac Index 3454.4 cm???/min???m??? AV Area Cont Eq vti 1.6 cm??? AV Area Cont Eq pk 1.7 cm??? MV Peak Velocity 157.2 cm/s MV Peak Gradient 9.9 mmHg MV Mean Velocity 92.9 cm/s MV Mean Gradient 3.9 mmHg MV Velocity Time Integral 49.1 cm MV Area PHT 2.6 cm??? Mitral E Point Velocity 124.3 cm/s Mitral A Point Velocity 104.5 cm/s Mitral E to A Ratio 1.2 MV Deceleration Time 294.4 ms FINDINGS Left Ventricle Left ventricular ejection fraction is estimated at 55-60 %. Left ventricular cavity size normal. Left ventricular wall thickness normal. No obvious regional wall motion abnormalities. Right Ventricle Right ventricle not well visualized. Unable to estimate the right ventricular systolic pressure. Right Atrium Right atrium not well visualized. Left Atrium Mildly increased left atrial area. Mitral Valve Mitral valve thickened. No evidence for mitral valve prolapse. Uhsg-lj-nhlwzyis mitral stenosis. Trace mitral regurgitation. Aortic Valve Aortic valve not well visualized. Mild aortic stenosis. Mean gradient 18mmHg Tricuspid Valve Structurally normal tricuspid valve. No tricuspid stenosis. Trace tricuspid regurgitation. Pulmonic Valve Pulmonic valve not well visualized. Pericardium No pericardial effusion. Aorta Normal size aortic root and proximal ascending aorta. CONCLUSIONS Left ventricular ejection fraction 55-60% Mild to moderate mitral stenosis Trace mitral regurgitation Mild aortic stenosis Trace tricuspid regurgitation Previewed by: Dr. Luiz Jackson DO (Electronically Signed) Final Date: 25 November 2023 13:08
--- NOTE | 2023-11-25 13:10 | CT ---
EXAMINATION TYPE: CT brain wo con DATE OF EXAM: 11/25/2023 COMPARISON: 11/24/2023 HISTORY: Found down on floor, unwitnessed CT DLP: 1227.2 mGycm Automated exposure control for dose reduction was used. FINDINGS: Moderate degenerative change with hypoattenuation the white matter most typical remote white matter i schemia. Punctate calcification left basal ganglia stable. Moderate intracranial atherosclerotic velásquez ges. No midline shift or mass effect. Interval improvement along the left cerebral convexity with no evidence of acute hemorrhage. Craniocervical junction maintained. Calvarium intact. Changes of chroni c sinusitis. IMPRESSION: 1. No acute intracranial hemorrhage or mass effect. No sizable subdural fluid collection on today's e xam.
--- NOTE | 2023-11-25 13:30 | P.PN ---
Progress Note - Text Progress Note Date: 11/25/23 83 year old M with PMH of Dementia, HTN, Hypothyroidism, HLD, Hypothyroidism presents to the ED for confusion. There was concern that the patient may of had a syncopal episode. In the ED he underwent extensive evaluation. T 98.1F, HR 71, RR 16, BP 145/64, 99% on RA. CBC, Coag panel, CMP significant Na 130, glu 168. Troponin < 0.012 x 3. Ammonia < 9. TSH 0.817. UA trace, 3+ glucose, trace blood, rare mucus, negative LE or nitrite. UDS negative. EtOH negative. COVID +. Patient was admitted for further workup and management. CT head 3 mm subacute subdural hematoma with no mass effect. Cardiology consulted, recommended Orthostats and Echo and no further workup. Echo EG 55-60% with mild-mod MS, trace MR, mild , trace TR. Orthostats were negative. Neurology consulted, repeat CT head showed resolution of the subdural hematoma, EEG ordered which was negative, B12 and Folate ordered along with MRI brain. 11/24 Patient was seen and examined. Discussed with RN, patient found crawling behind his bed this morning, unclear of events. Patient reports lower back pain. Unsure of head trauma. CBC and BMP today significant for WBC 3.6, RBC 4.04, Hg 12.8, Plt 94, Cl 109, glu 100. STAT CT head ordered which showed no acute findings, no subdural hematoma. General: non toxic, no distress, appears at stated age Derm: warm, dry Head: atraumatic, normocephalic, symmetric Eyes: EOMI, no lid lag, anicteric sclera Mouth: no lip lesion, mucus membranes moist Cardiovascular: S1S2 reg, no murmur Lungs: CTA bilateral, no rhonchi, no rales , no accessory muscle use Ext: no gross muscle atrophy, no edema, no contractures Neuro: no focal neuro deficits Psych: Alert, oriented, appropriate affect Based on my assessment of this patient, this patient meets a high complexity level of care. Acute metabolic encephalopathy versus Syncope: TSH wnl. Ammonia < 9. UA negative for LE or nitrite. UDS EtOH negative. COVID 19 +. Possibly worsened by Namenda and Galantamine anticholinergic effects. Orthostats negative. Echo as above. Order Carotid doppler. PT and OT consulted. Subacute subdural hematoma: Stable on repeat CT brain. Prelim EEG negative for seizure. MRI brain, B12, Folate ordered by Neurology. Sinus bradycardia: Cardiology on board recommends no further workup. History of aortic stenosis: Echo as above unlikely cause of syncope. History of NSVT COVID 19: On RA. Supportive management. Pancytopenia: Reevaluate after resolution of infection. PCP for further workup. Hypothyroid: Synthroid 100 mcg PO QD. Hypertension: Lisinopril 20 mg PO QD. Dementia: Namenda 10 mg PO BID. Galantamine 24 mg PO QD. HLD: Lipitor 40 mg PO QD. Resolved: HypoNa CODE STATUS: FULL CODE DVT Prophylaxis: SCD GI Prophylaxis: Protonix PO Designated medical POA if patient is not able to make medical decisions for themselves: I have reviewed the following seo consultant notes: Cardiology. I have reviewed the results of the following tests: CBC, BMP, CT head. I have ordered the following tests: Carotid doppler. I have discussed the care of this patient with the following independent historian: SABRINA. I have independently interpreted the following test below: I have discussed the management of this patient with the following physician: Dr. Pleitez
--- NOTE | 2023-11-25 13:54 | CDI ---
Documentation Clarification Form Date: 11/25/2023 From: Kandi Jaime RN CCDS Phone: [phone] Admit Date: 11/23/2023 04:28:00 PM Patient Name: Baljinder Cortes Visit Number: [id number] Discharge Date: ATTENTION: The Clinical Documentation Specialists (CDI) and [facility] Coding Staff appreciate your assistance in clarifying documentation. Please respond to the clarification below the line at the bottom and electronically sign. The CDI & [facility] Coding staff will review the response and follow-up if needed. Please note: Queries are made part of the Legal Health Record. If you have any questions, please contact the author of this message via ITS. Doctor/Provider: Major Colunga MD: Pneumonia is documented in the Neurology consult 11/23 which may lack sufficient clinical evidence/support in the medical record. Additional clarification is requested. History/Risk Factors: 83-year-old male with a history of dementia, HTN, HLD and hypothyroid who presents after a brief episode of confusion and cough productive of white phlegm for the past week Clinical Indicators: 11/22 Triage VS: 145/64, 98.1, 71, 16, 99% room air (patient on room air throughout stay) 11/22 H&P, Assessment: "Covid 19with no shortness of breath or hypoxia Supportive care" 11/23 Neurology consult, Assessment: "Altered mental status change due to hypoxic encephalopathy/pneumonia. Has SARS-CoV-2" 11/22 Chest X Ray, Findings: "Asymmetric elevation right hemidiaphragm. Heart borderline in size. Mild interstitial prominence is unchanged. No consolidation or pleural effusion." 11/22-11/24 WBC: 3.2, 2.3, 3.6 11/22 SARS-CoV-2(PCR): Detected Treatment: Chest X Ray, Monitor SaO2 Normal Saline 1000cc bolus once 11/22, the 75cc/hour dc 11/24 Please clarify if Pneumonia is a valid diagnosis? [ ] No, Pneumonia is ruled out [ ] Yes, Pneumonia is present as evidence by (additional clinical support): [ ] Other (please specify diagnosis) [ ] Unable to determine No, Pneumonia is ruled out MTDD
[2023-11-25] MEDS ORDERED: IPRATROPIUM-ALBUTEROL 3 ML NEB INHALATION PRN (21:30)
[2023-11-25] MEDS: ALBUTEROL HFA INHALER INHALATION PRN (22:19)
[2023-11-26] MEDS: hydrALAZINE HCL 25 MG TAB PO STA (00:03)
[2023-11-26 04:23] VITALS: RESP 16
[2023-11-26] MEDS: PANTOPRAZOLE 40 MG TABLET PO SCH (06:33)
[2023-11-26 08:10] VITALS: TEMP 97.9
[2023-11-26] MEDS: TIOTROPIUM 2.5 MCG INHALER INHALATION SCH (08:50)
[2023-11-26] MEDS: ALBUTEROL HFA INHALER INHALATION SCH (08:50)
--- NOTE | 2023-11-26 09:53 | P.PN ---
Progress Note - Text Progress Note Date: 11/26/23 83 year old M with PMH of Dementia, HTN, Hypothyroidism, HLD, Hypothyroidism presents to the ED for confusion. There was concern that the patient may of had a syncopal episode. In the ED he underwent extensive evaluation. T 98.1F, HR 71, RR 16, BP 145/64, 99% on RA. CBC, Coag panel, CMP significant Na 130, glu 168. Troponin < 0.012 x 3. Ammonia < 9. TSH 0.817. UA trace, 3+ glucose, trace blood, rare mucus, negative LE or nitrite. UDS negative. EtOH negative. COVID +. Patient was admitted for further workup and management. CT head 3 mm subacute subdural hematoma with no mass effect. Cardiology consulted, recommended Orthostats and Echo and no further workup. Echo EG 55-60% with mild-mod MS, trace MR, mild , trace TR. Orthostats were negative. Neurology consulted, repeat CT head showed resolution of the subdural hematoma, EEG ordered which was negative, B12 and Folate ordered along with MRI brain. 11/24 Patient was seen and examined. Discussed with RN, patient found crawling behind his bed this morning, unclear of events. Patient reports lower back pain. Unsure of head trauma. CBC and BMP today significant for WBC 3.6, RBC 4.04, Hg 12.8, Plt 94, Cl 109, glu 100. STAT CT head ordered which showed no acute findings, no subdural hematoma. 11/25 Patient was seen and examined. Pleasantly confused. Carotid doppler negative. MRI brain pending. General: non toxic, no distress, appears at stated age Derm: warm, dry Head: atraumatic, normocephalic, symmetric Eyes: EOMI, no lid lag, anicteric sclera Mouth: no lip lesion, mucus membranes moist Cardiovascular: S1S2 reg, no murmur Lungs: CTA bilateral, no rhonchi, no rales , no accessory muscle use Ext: no gross muscle atrophy, no edema, no contractures Neuro: no focal neuro deficits Psych: Alert, oriented, appropriate affect Based on my assessment of this patient, this patient meets a high complexity level of care. Acute metabolic encephalopathy versus Syncope: TSH 3.55. B12 408. Folate 16.5. Ammonia < 9. UA negative for LE or nitrite. UDS EtOH negative. COVID 19 +. Possibly worsened by Namenda and Galantamine anticholinergic effects. Orthostats negative. Echo as above. Carotid doppler as above. PT and OT consulted. Subacute subdural hematoma: Stable on repeat CT brain. Prelim EEG negative for seizure. MRI brain ordered by Neurology. Sinus bradycardia: Cardiology on board recommends no further workup. History of aortic stenosis: Echo as above unlikely cause of syncope. History of NSVT COVID 19: On 2L NC. Supportive management for now. Decadron can be considered but may worsen his delirium. Pancytopenia: Reevaluate after resolution of infection. PCP for further workup. Hypothyroid: Synthroid 100 mcg PO QD. Hypertension: Lisinopril 20 mg PO QD. Dementia: Namenda 10 mg PO BID. Galantamine 24 mg PO QD. HLD: Lipitor 40 mg PO QD. Resolved: HypoNa CODE STATUS: FULL CODE DVT Prophylaxis: SCD GI Prophylaxis: Protonix PO Designated medical POA if patient is not able to make medical decisions for themselves: Discharge dispo pending MRI brain and PT/OT evaluation. I have reviewed the following crop consultant notes: I have reviewed the results of the following tests: B12, Folate, Carotid doppler. I have ordered the following tests: MRI brain is pending. I have discussed the care of this patient with the following independent historian: Case management. I have independently interpreted the following test below: I have discussed the management of this patient with the following physician:
[2023-11-26 12:05] VITALS: BP 147/67; PULSE 62
--- NOTE | 2023-11-26 12:28 | MR ---
EXAMINATION TYPE: MR brain wo/w con DATE OF EXAM: 11/26/2023 11:59 AM CLINICAL INDICATION: Male, 83 years old with history of confusion. questionable bleed on ct head; PH H, Abnormal CT, confusion COMPARISON: 11/15/2022, [facility] [id number] TECHNIQUE: Multi planar, multi sequence imaging was performed through the brain including: T1, T2, In version recovery, susceptibility weighted imaging and gradient echo imaging and Diffusion weighted im aging. The patient was then given intravenous contrast and multi planar, T1 fat-saturation images wer e obtained. IV Contrast: 9 cc Gadavist FINDINGS: The burnham-white junctions, ventricular system, basal cisterns appear unremarkable. Diffusion-weighted imaging shows no evidence of restricted diffusion to suggest acute/subacute infarct. Intracranial ar terial flow voids are maintained. Midline structures show no abnormality. Scattered foci of high T2 s ignal intensity are seen within the periventricular white matter. The susceptibility weighted images do not reveal any evidence for micro-hemorrhage. After administration of gadolinium, no abnormal enha ncement is seen. The bone marrow signal is within normal limits. Paranasal sinuses and mastoid air cells: No significant paranasal sinus disease. Visualized orbits: Orbital contents are intact. IMPRESSION: 1. No intracranial hemorrhage. No evidence of intracranial mass, acute/subacute infarct, or abnormal enhancement. 2. Nonspecific white matter changes, likely related to small vessel ischemic disease.
--- NOTE | 2023-11-26 15:02 | P.PN ---
Subjective Progress Note Date: 11/26/23 I am following-up with patient and he denies any headache, nausea, vomiting, focal weakness. Feels back to baseline and wants to go home. Objective - Vital Signs Vital signs: Vital Signs Temp 97.9 F 11/26/23 12:00 Pulse 62 11/26/23 12:00 Resp 16 11/26/23 12:00 BP 147/67 11/26/23 12:00 Pulse Ox 99 11/26/23 12:00 FiO2 Intake & Output 11/25/23 11/26/23 11/26/23 18:59 06:59 18:59 Intake Total 236 236 Output Total 250 Balance -14 236 Weight 92.3 kg Intake: Oral 236 236 Output: Urine 250 Other: Voiding Method Toilet Toilet # Voids 1 1 1 # Bowel Movements 1 - Exam GENERAL: The patient is sitting up in bed and is not in acute distress. NEUROLOGICAL: The patient is awake, alert is oriented to self, place and time. He is following simple commands. No aphasia from limited language The pupils are round equal reactive to light. The pupils are round 3 to 4 mm bilaterally. Visual montalvo are full to confrontation. Extraocular movements intact no nystagmus. No facial weakness. No dysarthria. Tongue is midline move [id number] without difficulty Motor is is lifts in all extremities above gravity and appears equal. Normal tone and bulk. Sensation is normal to touch Some other workup during this hospital visit consisted of: Ammonia is less than 9 TSH is 0.817 B12: 408 serum folate 16.5 UDS is negative. Urine alcohol <[address] of the head is reported as findings suspicious for a trace 3 mm thick subacute subdural hematoma along the left lateral convexity. No mass effect or midline shift. No acute intracranial abnormality seen. I personally reviewed the CT and agree there is no acute process in the regarding this subacute subdural if any subacute to chronic that seems questionable Repeat CT of the head is reported as no sizable Routine EEG: Is abnormal. The background slowing is suggestive of mild encephalopathy. Otherwise no focal slowing, epileptiform discharge or seizure. MRI Brain: No intracranial hemoorrhage. No evidence of intracranial mass, acute/subacute infarct or abnormal enhancement. Nonspecific white matter changes, likely related to small vessel ischemic disease. Carotid duplex: No hemodynamically significant internal carotid artery stenosis on either side. - Labs CBC & Chem 7: 11/25/23 08:38 11/25/23 08:38 Assessment and Plan Assessment: This is an 83-year-old gentleman who presents because of confusion. Initial CT of the head shows just 3 mm subacute subdural hematoma along the left lateral convexity. No mass effect or midline shift. Repeat CT of the head shows resolution. Denies any fall or any head trauma. Patient is not on any antiplatelet or anticoagulation. He does acknowledge that he has been coughing. He has +ve SARS-CoV-2 Suspicious subacute left lateral convexity subdural hematoma seems resolved on the repeat CT. MRI Brain is unremarkable for acute or subacute process or mass. Altered mental status change due to hypoxic encephalopathy/pneumonia. Has [id number]--mentation improved +ve SARS-COV-2 PCR Acute on chronic thrombocytopenia Leukopenia Plan: Recommend the patient to follow-up with neurologist as outpatient within 2-3 weeks. For the rest of the medical management the primary and other specialist There is no further neurological work-up. Time with Patient: Less than 30
--- NOTE | 2023-11-26 15:12 | P.PN ---
Subjective Progress Note Date: 11/26/23 Patient did not have any further episodes of syncope. Continues to feel poorly from the COVID infection. Patient had an echocardiogram results are pending at this time. Labs show that the white cell count and platelet count are coming up renal functions are normal 11/25 Patient has no new concerns today. No significant cough. He is hoping to go home soon. Blood pressure 147/67, heart rate 62, pulse ox 99% on room air. No repeat blood work today. On exam: Vital signs are stable there is ventricular venous distention chest exam reveals good air entry bilaterally heart exam reveals first and second heart sounds no gallop abdominal soft exam extremities did not reveal any edema peripheral puls es are felt Assessment and plan: Syncope rule out cardiac causes COVID-19 infection Most of patient's symptoms are probably related to the acute viral infection. Will follow the echo results. When patient is medically stable he will be discharged home and I will pursue his syncope workup as outpatient including event monitor if necessary and the stress test Nurse practitioner note has been reviewed, I agree with documented findings and plan of care. Patient was seen and examined. Objective - Vital Signs Vital signs: Vital Signs Temp 97.9 F 11/26/23 08:00 Pulse 69 11/26/23 08:00 Resp 16 11/26/23 08:00 BP 137/70 11/26/23 08:00 Pulse Ox 98 11/26/23 08:56 FiO2 Intake & Output 11/25/23 11/26/23 11/26/23 18:59 06:59 18:59 Intake Total 236 118 Output Total 250 Balance -14 118 Weight 92.3 kg Intake: Oral 236 118 Output: Urine 250 Other: Voiding Method Toilet # Voids 1 1 1 # Bowel Movements 1 - Labs CBC & Chem 7: 11/25/23 08:38 11/25/23 08:38 Labs: Abnormal Lab Results - Last 24 Hours (Table) 11/25/23 11/25/23 Range/Units 08:38 08:38 WBC 3.6 L (3.8-10.6) k/uL RBC 4.04 L (4.30-5.90) m/uL Hgb 12.8 L (13.0-17.5) gm/dL Plt Count 94 L (150-450) k/uL Lymphocytes # 0.8 L (1.0-4.8) k/uL Chloride 109 H (98-107) mmol/L Glucose 100 H (74-99) mg/dL
--- NOTE | 2023-11-27 07:22 | P.DS ---
Providers Date of admission: 11/23/23 16:28 Expected date of discharge: 11/26/23 Attending physician: Collins Green MD Consults: 11/23/23 16:17 Consult Physician Routine Consulting Provider: Sunil Butler Consult Reason/Comments: subacute subdural hematoma, no symptoms Do you want consulting provider notified?: Already Contacted 11/23/23 16:29 Consult Physician Routine Consulting Provider: Hang Bennett Consult Reason/Comments: syncope Do you want consulting provider notified?: Yes Primary care physician: [facility] Course: 83 year old M with PMH of Dementia, HTN, Hypothyroidism, HLD, Hypothyroidism presents to the ED for confusion. There was concern that the patient may of had a syncopal episode. In the ED he underwent extensive evaluation. T 98.1F, HR 71, RR 16, BP 145/64, 99% on RA. CBC, Coag panel, CMP significant Na 130, glu 168. Troponin < 0.012 x 3. Ammonia < 9. TSH 0.817. UA trace, 3+ glucose, trace blood, rare mucus, negative LE or nitrite. UDS negative. EtOH negative. COVID +. Patient was admitted for further workup and management. CT head 3 mm subacute subdural hematoma with no mass effect. Cardiology consulted, recommended Orthost ats and Echo and no further workup. Echo EG 55-60% with mild-mod MS, trace MR, mild , trace TR. Orthostats were negative. Neurology consulted, repeat CT head showed resolution of the subdural hematoma, EEG ordered which was negative, B12 and Folate ordered along with MRI brain. 11/24 Patient was seen and examined. Discussed with RN, patient found crawling behind his bed this morning, unclear of events. Patient reports lower back pain. Unsure of head trauma. CBC and BMP today significant for WBC 3.6, RBC 4.04, Hg 12.8, Plt 94, Cl 109, glu 100. STAT CT head ordered which showed no acute findin gs, no subdural hematoma. 11/25 Patient was seen and examined. Pleasantly confused. Carotid doppler negative. MRI brain negative for acute findings. His workup has been negative so far. Most likely diagnosis is acute metabolic encephalopathy likely due to COVID 19 in the setting of underlying dementia. Plans to discharge the patient home today. Follow up with PCP within 1-2 days of discharge. Follow up with Cardiology within 1 week for possible stress test. At this point, he does not require any oxygen and management of COVID 19 will be purely supportive. Discussed with Case management. General: non toxic, no distress, appears at stated age Derm: warm, dry Head: atraumatic, normocephalic, symmetric Eyes: EOMI, no lid lag, anicteric sclera Mouth: no lip lesion, mucus membranes moist Cardiovascular: S1S2 reg, no murmur Lungs: CTA bilateral, no rhonchi, no rales , no accessory muscle use Ext: no gross muscle atrophy, no edema, no contractures Neuro: no focal neuro deficits Psych: Alert, oriented, appropriate affect Discharge Diagnosis: Acute metabolic encephalopathy versus Syncope: TSH 3.55. B12 408. Folate 16.5. Ammonia < 9. UA negative for LE or nitrite. UDS EtOH negative. COVID 19 +. Possibly worsened by Namenda and Galantamine anticholinergic effects. Orthostats negative. Echo as above. Carotid doppler as above. PT and OT on board. Subacute subdural hematoma: Stable on repeat CT brain. Prelim EEG negative for seizure. MRI brain negative for acute pathology. Neurology on board. Sinus bradycardia: Cardiology on board recommends outpatient workup. History of aortic stenosis: Echo as above unlikely cause of syncope. History of NSVT: Cardiology recommendations as above. COVID 19: Supportive management for now. Decadron can be considered but may worsen his delirium. Pancytopenia: Reevaluate after resolution of infection. PCP for further workup. Hypothyroid: Synthroid 100 mcg PO QD. Hypertension: Lisinopril 20 mg PO QD. Dementia: Namenda 10 mg PO BID. Galantamine 24 mg PO QD. HLD: Lipitor 40 mg PO QD. Resolved: HypoNa This complex discharge took 35 minutes to coordinate. Patient Condition at Discharge: Stable Plan - Discharge Summary Discharge Rx Participant: Yes New Discharge Prescriptions: New Albuterol Inhaler [Ventolin Hfa Inhaler] 2 puff INHALATION RT-QID PRN #1 each PRN Reason: Shortness Of Breath Or Wheezing Continue Levothyroxine Sodium [Synthroid] 100 mcg PO DAILY lisinopriL [Zestril] 20 mg PO DAILY Galantamine HBr [Razadyne ER] 24 mg PO DAILY Atorvastatin [Lipitor] 40 mg PO DAILY Memantine [Namenda] 10 mg PO BID Discharge Medication List Levothyroxine Sodium [Synthroid] 100 mcg PO DAILY 10/18/19 [History] lisinopriL [Zestril] 20 mg PO DAILY 03/28/22 [History] Atorvastatin [Lipitor] 40 mg PO DAILY 11/23/23 [History] Galantamine HBr [Razadyne ER] 24 mg PO DAILY 11/23/23 [History] Memantine [Namenda] 10 mg PO BID 11/23/23 [History] Albuterol Inhaler [Ventolin Hfa Inhaler] 2 puff INHALATION RT-QID PRN #1 each 11/26/23 [Rx] Follow up Appointment(s)/Referral(s): Wellington Delgado MD [Primary Care Provider] - 1-2 days Carlo Parks MD [STAFF PHYSICIAN] - 1 Week Discharge Disposition: HOME SELF-CARE
== END 2023-11-26 14:15 | disposition home or self-care (01) | DRG 177 ==
LOC: EC 13:16 → 3SCARD 16:20 → OBSVTOIN 16:28 → 3SCARD 17:12
PROVIDERS: ADMIT Student in an Organized Health Care Education/Training Program; ATTEND Student in an Organized Health Care Education/Training Program
DX: U07.1 COVID-19 (principal); G93.41 Metabolic encephalopathy; J12.82 Pneumonia due to coronavirus disease 2019; I62.02 Nontraumatic subacute subdural hemorrhage; E87.1 Hypo-osmolality and hyponatremia; G93.1 Anoxic brain damage, not elsewhere classified; I47.20 Ventricular tachycardia, unspecified; D61.818 Other pancytopenia; D69.6 Thrombocytopenia, unspecified; F03.90 Unspecified dementia, unspecified severity, without behavioral disturbance, psychotic disturbance, mood disturbance, and anxiety; E66.9 Obesity, unspecified; E78.5 Hyperlipidemia, unspecified; I10 Essential (primary) hypertension; I25.10 Atherosclerotic heart disease of native coronary artery without angina pectoris; I49.3 Ventricular premature depolarization; E03.9 Hypothyroidism, unspecified; I35.0 Nonrheumatic aortic (valve) stenosis; M19.041 Primary osteoarthritis, right hand; M19.042 Primary osteoarthritis, left hand; Z79.890 Hormone replacement therapy; Z79.899 Other long term (current) drug therapy; Z87.891 Personal history of nicotine dependence; Z88.0 Allergy status to penicillin; Z68.29 Body mass index [BMI] 29.0-29.9, adult
CPT/HCPCS: 96360; 96361; 99285